=== PATIENT | female | born 1960 | race Caucasian/White ===

== ENCOUNTER 2016-06-20 16:51 | Inpatient (IN) | payer MEDICAID, OTHER ==
[~2016-06-20] VITALS: Ht 162.6 cm; Wt 64.6 kg
[2016-06-20 18:31] LABS: BASO % 0.1 % (0.0-1.0); EOS % 0.2 % (0.0-3.0); LARGE UNSTAINED CELL # 0.2 K/mm3 (0.0-0.4); LARGE UNSTAINED CELL % 0.9 % (0.0-4.0); LYMPH # 0.7 K/mm3 (1.5-4.5); LYMPH % 3.6 % (24.0-44.0); MEAN CORPUSCULAR HEMOGLOBIN 29.8 pg (27.0-33.0); MEAN CORPUSCULAR HGB CONC 33.6 g/dl (32.0-36.5); MEAN CORPUSCULAR VOLUME 88.6 fl (80.0-96.0); MONO # 0.7 K/mm3 (0.0-0.8); MONO % 3.8 % (0.0-5.0); NEUTROPHILS # 16.4 K/mm3 (1.8-7.7); NEUTROPHILS % 91.4 % (36.0-66.0); PLATELET COUNT, AUTOMATED 213 k/mm3 (150-450); RED CELL DISTRIBUTION WIDTH 12.3 % (11.5-14.5); WHITE BLOOD COUNT 17.9 K/mm3 (4.0-10.0)
[2016-06-20 18:36] LABS: BACTERIA, URINE SMALL AMOUNT; HYALINE CAST, URINE NONE SEEN /lpf (0-1); MICROSCOPIC EXAM UNSPUN; MICROSCOPIC INDICATED? MAN YES (NO); RBC, URINE 0-1 /hpf (0-3); SQUAMOUS EPITHELIAL CELL URINE SMALL AMOUNT /hpf (SMALL AMT); WBC, URINE TNTC /hpf (0-3)
[2016-06-20 18:43] LABS: ALBUMIN 3.4 GM/DL (3.2-5.2); ALBUMIN/GLOBULIN RATIO 0.76 (1.00-1.93); ALKALINE PHOSPHATASE 160 U/L (45-117); ALT/SGPT 27 U/L (12-78); ANION GAP 8 MEQ/L (8-16); AST/SGOT 14 U/L (15-37); BILIRUBIN,DIRECT 0.6 MG/DL (0.0-0.2); BILIRUBIN,TOTAL 1.2 MG/DL (0.2-1.0); BLOOD UREA NITROGEN 20 MG/DL (7-18); CALCIUM LEVEL 9.8 MG/DL (8.5-10.1); CARBON DIOXIDE LEVEL 30 MEQ/L (21-32); CHLORIDE LEVEL 102 MEQ/L (98-107); CREATININE FOR GFR 1.01 MG/DL (0.55-1.02); GLOMERULAR FILTRATION RATE > 60.0 (>51); GLUCOSE, FASTING 133 MG/DL (70-105); POTASSIUM SERUM 3.7 MEQ/L (3.5-5.1); SODIUM LEVEL 140 MEQ/L (136-145); TOTAL PROTEIN 7.9 GM/DL (6.4-8.2)
[2016-06-20] MEDS ORDERED: MORPHINE 4 MG/ML 1ML SYRINGE As Ordered ONE (19:27)
[2016-06-20] MEDS ORDERED: CIPROFLOXACIN/D5W 400 MG/200 ML BAG (J0744) As Ordered ONE (19:27)
--- NOTE | 2016-06-20 19:40 | REP ---
Clinical: Renal colic. Comparison: None. Findings: Dilated fluid-filled small bowel is appreciated to the right lower quadrant where collapsed distal/terminal ileum and colon are identified. Findings are compatible with distal small bowel obstruction possibly secondary to adhesions. Enteritis involving the distal ileum cannot be excluded. Few scattered colonic diverticula noted without acute diverticulitis. No free air. Small amount of free fluid in the pelvis is identified. Liver, spleen, pancreas, gallbladder, bilateral adrenal glands and kidneys are normal for noncontrast evaluation. No significant adenopathy. Pelvis demonstrates collapsed bladder and age-appropriate uterus/adnexa. Abdominal aorta demonstrates minimal atherosclerotic changes without aneurysm. Musculoskeletal structures demonstrate degenerative changes. Lung bases demonstrate minimal atelectasis. Impression: 1. Acute small bowel obstruction. Possible enteritis involving the distal ileum. 2. Collapsed colon with scattered diverticula and no evidence for acute diverticulitis. 3. Small amount of free fluid in the pelvis. Signed by Ata Schumacher MD 06/20/2016 07:32 P
[2016-06-20] MEDS ORDERED: ONDANSETRON 4MG/2ML VIAL (J2405) IV PRN (20:45)
[2016-06-20] MEDS ORDERED: ACETAMINOPHEN TAB 650MG DOSE (2X325MG) PO PRN (20:45)
--- NOTE | 2016-06-20 21:47 | HPE ---
DATE OF ADMISSION: 06/20/2016 PRIMARY CARE PROVIDER: None. HISTORY OF THE PRESENT ILLNESS: This patient is a 55-year-old female with no significant past medical history, presented to [facility] on 06/20/2016 for worsening abdominal pain and flank pain. The patient stated since 4 days ago, she has had intermittent abdominal pain in all the quadrants and the pain is intermittent. She does not know any significant triggers. The pain she describes as cramping-type of pain and starting this morning, the patient started having right-sided flank pain. The pain sharp, constant and colicky. The pain radiates to the abdomen. The patient also complains about nausea but no vomiting. Due to worsening of her symptoms, the patient has been having a very poor appetite, but she did have one bowel movement yesterday. The patient described the consistency and amount of the stool is very similar to what she used to have and the color of the stool is whitish-yellow. The patient has decreased urinary output. She attributed that due to poor oral intake from acute pain. She noticed her urine is darker than usual, but she denies any dysuria, frequency or urgency. ALLERGIES: No known drug allergies.. HOME MEDICATIONS: None. PAST MEDICAL HISTORY: None. PAST SURGICAL HISTORY: None. SOCIAL HISTORY: Denies smoking. Denies alcohol use. Denies any recreational drug use. REVIEW OF SYSTEMS: GENERAL: No fever, no chills. HEENT: No vision change. No auditory changes. CARDIOVASCULAR: No chest pain. No palpitations. RESPIRATORY: No shortness of breath, no cough, no sputum production. GASTROINTESTINAL: Acute abdominal pain, worsening in the past 4 days. The patient had one bowel movement yesterday. Stool is not loose and there is no visible blood. GENITOURINARY: Does complain about darker urine. No dysuria, urgency or frequency. MUSCULOSKELETAL: No muscle pain or joint pain. NEUROLOGICAL: No numbness or tingling. OBJECTIVE: VITAL SIGNS: Blood pressure is 160/82, pulse is 108, respirations 18, temperature is 98.4, pulse oximetry is 95% in room air. Body weight is 65.77 kg. Body height is 162.56 cm. GENERAL: Mild distress. Alert and oriented times three. HEENT: Normocephalic, atraumatic. Extraocular motor grossly intact. CARDIOVASCULAR: Tachycardic with a heart rate around 100-110. Positive S1, S2. RESPIRATORY: Clear to auscultation bilaterally. ABDOMEN: Soft, nontender, nondistended. Hypoactive bowel sounds. MUSCULOSKELETAL: Positive costovertebral angle tenderness at the right flank area. No lower extremity edema. No sign of cyanosis. NEUROLOGICAL: Sensation to fine touch grossly intact. Muscle strength 5/5. LABORATORY DATA: WBC is 17.9, hemoglobin is 14.9, hematocrit 44.4, platelet count is 213. Sodium is 140, potassium 3.7, chloride is 102, carbon dioxide 30, BUN 20, creatinine 1.01, GFR greater than 60, fasting glucose 133, calcium is 9.8, total bilirubin is 1.2, direct bilirubin is 0.6, AST is 14, ALT is 27, alkaline phosphatase 160, total protein is 7.9, albumin 3.4, lipase is 113. UA is cloudy, 2+ protein, positive leukocyte esterase, too many to count WBCs, small amount of bacteria. Microbiology: None. IMAGING STUDIES: CT of the abdomen and pelvis without contrast shows acute small bowel obstruction, possible enteritis involving the distal ileum. Collapsed colon with scattered diverticula and no evidence of acute diverticulitis. A small amount of air fluid in the pelvis. ASSESSMENT AND PLAN: 1. Urinary tract infection/pyelonephritis. The patient will be admitted to medical-surgical floor under inpatient status. Will obtain the urine culture. Unfortunately, one dose of ciprofloxacin was already given in the emergency room before the . Will continue with ciprofloxacin at this moment, and we will adjust antibiotics as needed. The patient will receive IV fluid running at 80 mL per hour. The patient will remain nothing by mouth (n.p.o.). 2. Imaging evidence of acute small bowel obstruction. Dr. Pagan has been consulted. The patient's presentation may be due to acute distress and infection causing ileus. Recommend medical management for now and the patient will be evaluated by the surgical team tomorrow. The patient is nothing by mouth, nasogastric (NG) tube in place. IV fluid running at 80 mL per hour. 3. Deep vein thrombosis (DVT) prophylaxis. The patient will be on heparin.
[2016-06-20] MEDS ORDERED: MORPHINE 2 MG/ML 1ML SYRINGE As Ordered ONE (22:06)
--- NOTE | 2016-06-21 00:04 | EDDOCDS ---
Physician Documentation [facility] Name: Linda Hawk Age: 55 yrs Sex: Female : 1960 Arrival Date: 06/20/2016 Time: 16:51 Bed 9 Private MD: NO PRIMARY PHYSICIAN, . Disposition: 06/20/16 20:47 Hospitalization ordered by Salvador Robledo for Inpatient Admission. Preliminary diagnosis are Other specified disorders of kidney and ureter - pyelonephritis, Ileus, unspecified. - Bed requested for M PED. - Status is Inpatient Admission. mgs - Condition is Stable. - Problem is new. - Symptoms have improved. Historical: - Allergies: no known allergies; - Home Meds: 1. none - PMHx: none; - PSHx: none; - Social history: Smoking status: Patient/guardian denies using No barriers to communication noted, The patient speaks fluent [place]. - Family history: Not pertinent. - : The pt / caregiver states he / she is not on anticoagulants. Home medication list is obtained from the patient. - Exposure Risk Screening:: None identified. [employer]: 06/20 17:09 LMP N/A - Post-menopause dls Vital Signs: 16:54 BP 174 / 107; Pulse 126; Resp 18 S; Temp 98.4(O); Pulse Ox 99% on R/A; Weight 65.77 kg gr2 / 145 lbs (R); Height 5 ft. 4 in. (162.56 cm) (R); Pain 6/10; 19:30 BP 160 / 82 (auto/); mgs 19:34 BP 160 / 82; nn1 19:34 Pain 10/10; nn1 19:40 Pulse 102 MON; Pulse Ox 95% ; mgs 20:00 Pulse 96 MON; Pulse Ox 95% ; mgs 20:30 Pulse 108 MON; Pulse Ox 95% ; mgs 22:07 BP 145 / 85; Pulse 100; Resp 16; Temp 99.5(O); Pulse Ox 96% on R/A; lr2 06/21 00:00 BP 142 / 87 RA Supine (auto/reg); Pulse 95 MON; Resp 18 S; Temp 98.8(TE); Pulse Ox 95% cln on R/A; Pain 8/10; 06/20 16:54 Body Mass Index 24.89 (65.77 kg, 162.56 cm) gr2 MDM: 02 18:13 Undress patient appropriately for examination ordered. jmk 18:13 NS 0.9% 1000 ml IV at bolus once ordered. jmk 18:14 NOTHING BY MOUTH+DIET ordered. EDMS 18:15 Basic Metabolic Profile Ordered. EDMS 18:15 CBC with Diff Ordered. EDMS 18:15 Lipase Ordered. EDMS 18:15 Liver Profile Ordered. EDMS 18:30 URINALYSIS MANUAL Ordered. EDMS 18:54 Basic Metabolic Profile Reviewed. cs11 18:54 CBC with Diff Reviewed. cs11 18:54 Liver Profile Reviewed. cs11 18:54 URINALYSIS MANUAL Reviewed. cs11 18:54 MICROSCOPIC, URINE Reviewed. cs11 18:54 Lipase Reviewed. cs11 18:55 Ciprofloxacin 400 mg IVPB at 200 mL/hr once over 60 mins ordered. cs11 19:05 morphine 4 mg IVP once ordered. cs11 19:05 Metoclopramide 10 mg IV at 40 mg/hr once over 15 mins; prn emesis ordered. cs11 19:06 CT ABD & PELVIS: No Contrast Ordered. EDMS 19:23 Financial registration complete. zo 19:38 [facility] [place] Payment Agreement was scanned into [employer] and attached to record. zo 19:49 NG/OG Tube 18Fr to L.I.S. with hourly monitoring for placement ordered. cs11 19:52 BED REQUEST+ADM ordered. EDMS 21:06 Admission / Observation Status ordered. EDMS 21:06 NPO DIET ordered. EDMS 21:08 URINE CULTURE Ordered. EDMS 21:22 BLOOD CULTURES Ordered. EDMS 21:22 BLOOD CULTURES Ordered. EDMS 22:11 morphine 2 mg IVP once ordered. mgs Administered Medications: 18:21 Drug: NS 0.9% 1000 ml Route: IV; Rate: bolus; Site: left antecubital; jmk 19:34 Drug: Ciprofloxacin 400 mg [ciprofloxacin 400 mg/200 mL in 5 % dextrose intravenous nn1 piggyback] Route: IVPB; Rate: 200 mL/hr; Infused Over: 60 mins; Site: left antecubital; 19:34 Drug: morphine 4 mg [morphine 4 mg/mL intravenous cartridge (1 mL)] Route: IVP; Site: nn1 left antecubital; 22:19 Drug: morphine 2 mg [morphine 2 mg/mL intravenous cartridge (1 mL)] Route: IVP; Site: mgs left antecubital; Signatures: Dispatcher [employer] EDMS Jass Juarez RN RN jmk Scott, Debra, RN RN dls Ct RaymundoSusieJayde, [employer] ml3 Daniel Pope Craig, DO DO cs11 Carl Egan RN RN mgs Ara Levine RN nn1 The chart was reviewed and I authenticate all verbal orders and agree with the evaluation and treatment provided.Corrections: (The following items were deleted from the chart) 18:30 18:15 URINALYSIS+LAB ordered. EDMS EDMS Attachments: 19:38 [facility] [place] Payment Agreement zo MTDD
--- NOTE | 2016-06-21 00:05 | EDDOCDS ---
Nurse's Notes [facility] Name: Linda Hawk Age: 55 yrs Sex: Female : 1960 Arrival Date: 06/20/2016 Time: 16:51 Bed 9 Private MD: NO PRIMARY PHYSICIAN, . Diagnosis: Other specified disorders of kidney and ureter-pyelonephritis;Ileus, unspecified Presentation: 06/20 17:07 Presenting complaint: Patient states: Pt presents with c/o abdominal pain x 4 days dls denies vomiting stools are soft but no diarrhea pain radiating into her back and right hip. Risk factors: the patient reports no vaginal bleeding. Adult Sepsis Screening: The patient does not have new or worsening altered mentation. Patient's respiratory rate is less than 22. Systolic blood pressure is greater than 100. Patient has a qSOFA score of 0- Negative Sepsis Screen. Suicide/Homicide risk assessment- the patient denies having any suicidal and/or homicidal ideations and does not present with any other emotional, behavioral or mental health complaints. 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 Transition of care: patient was not received from another setting of care. 17:07 Acuity: MIKIE Level 3 dls 17:07 Method Of Arrival: Walkin/Carried/Asstd dls Triage Assessment: 17:09 General: Appears slender, uncomfortable, well developed, well nourished, Behavior is dls cooperative. Pain: Pain currently is 7 out of 10 on a pain scale. HIV screening NA for this visit Offered previously. 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 none - PMHx: none; - PSHx: none; - Social history: Smoking status: Patient/guardian denies using No barriers to communication noted, The patient speaks fluent Irish. - Family history: Not pertinent. - : The pt / caregiver states he / she is not on anticoagulants. Home medication list is obtained from the patient. - Exposure Risk Screening:: None identified. Screenin:21 Screening information is obtained from the patient. Fall risk: No risks identified. jmk Assistance ADL's: requires no assistance with activities of daily living. Abuse/DV Screen: The patient / caregiver reports he/she is: not in a situation that causes fear, pain or injury. Nutritional screening: No deficits noted. Advance Directives: Currently, there is no health care proxy. There is no active DNR order. There is no living will. 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 Advance directive information has not previously been placed in an [facility] medical record. home support is adequate. Assessment: 18:21 General: Appears in no apparent distress, skin warm and dry color satisfactory. Moist jmk pink oral mucosa. indicates diffuse abd discomfort. bowel sounds present x 4. + left flank pain of which she states lessens with ambulation. Cardiovascular: No deficits noted. Capillary refill < 3 seconds Clubbing of nail beds is absent Heart tones S1 S2 present. Respiratory: Airway is patent Respiratory effort is even, unlabored, Respiratory pattern is regular, Breath sounds are clear bilaterally. GI: Abdomen is flat, non- distended Bowel sounds present X 4 quads. Abd is soft X 4 quads Abd is tender to palpation X 4 quads. 19:35 General: Patient medicated for pain per orders, fluids and antibiotics infusing. . nn1 Pain: Location: epigastric area, left hip and right hip Pain currently is 10 out of 10 on a pain scale. 19:42 General: Appears in no apparent distress. General: Behavior is cooperative. Pain: mgs Location: right hip, right flank Pain currently is 10 out of 10 on a pain scale. Neurological: Level of Consciousness is awake, alert, Oriented to person, place, time. Cardiovascular: Capillary refill < 3 seconds Heart tones S1 S2 present. Respiratory: Airway is patent Respiratory effort is even, unlabored, Respiratory pattern is regular, symmetrical. Derm: Skin is pink, warm & dry. 20:38 General: Appears in no apparent distress, Behavior is cooperative. Pain: Location: mgs right flank Pain currently is 8 out of 10 on a pain scale. Neurological: Level of Consciousness is awake, alert, Oriented to person, place, time. Cardiovascular: Capillary refill < 3 seconds. Respiratory: Airway is patent Respiratory effort is even, unlabored, Respiratory pattern is regular, symmetrical. Derm: Skin is pink, warm & dry. 21:30 General: Appears in no apparent distress, Behavior is cooperative. Pain: Location: mgs right flank Pain currently is 9 out of 10 on a pain scale. Neurological: Level of Consciousness is awake, alert, Oriented to person, place, time. Cardiovascular: Capillary refill < 3 seconds. Respiratory: Airway is patent Respiratory effort is even, unlabored. Derm: Skin is pink, warm & dry. 22:25 General: Appears in no apparent distress, Behavior is cooperative. Pain: Location: mgs right flank Pain currently is 8 out of 10 on a pain scale. Neurological: Level of Consciousness is awake, alert, Oriented to person, place, time. Cardiovascular: Capillary refill < 3 seconds. Respiratory: Airway is patent Respiratory effort is even, unlabored, Respiratory pattern is regular, symmetrical. Derm: Skin is pink, warm & dry. 22:51 General: Appears in no apparent distress, Behavior is cooperative. Pain: Location: mgs right flank Pain currently is 6 out of 10 on a pain scale. Neurological: Level of Consciousness is awake, alert, Oriented to person, place, time. Cardiovascular: Capillary refill < 3 seconds. Respiratory: Airway is patent Respiratory effort is even, unlabored, Respiratory pattern is regular, symmetrical. Derm: Skin is pink, warm & dry. 22:52 General: Patients 15 year old daughter left with family friend Ni Lyles, patient mgs was ok with this. 23:38 General: Appears in no apparent distress, Behavior is cooperative. Neurological: Level mgs of Consciousness is awake, alert, Oriented to person, place, time. Cardiovascular: Capillary refill < 3 seconds. Respiratory: Airway is patent Respiratory effort is even, unlabored, Respiratory pattern is regular, symmetrical. Derm: Skin is pink, warm & dry. 23:59 General: Appears in no apparent distress, Behavior is cooperative. Neurological: Level mgs of Consciousness is awake, alert, Oriented to person, place, time. Cardiovascular: Capillary refill < 3 seconds. Respiratory: Airway is patent Respiratory effort is even, unlabored, Respiratory pattern is regular, symmetrical. GI: NGT in place, to suction. Derm: Skin is pink, warm & dry. Vital Signs: 16:54 BP 174 / 107; Pulse 126; Resp 18 S; Temp 98.4(O); Pulse Ox 99% on R/A; Weight 65.77 kg gr2 (R); Height 5 ft. 4 in. (162.56 cm) (R); Pain 6/10; 19:30 BP 160 / 82 (auto/); mgs 19:34 BP 160 / 82; nn1 19:34 Pain 10/10; nn1 19:40 Pulse 102 MON; Pulse Ox 95% ; mgs 20:00 Pulse 96 MON; Pulse Ox 95% ; mgs 20:30 Pulse 108 MON; Pulse Ox 95% ; mgs 22:07 BP 145 / 85; Pulse 100; Resp 16; Temp 99.5(O); Pulse Ox 96% on R/A; lr2 06/21 00:00 BP 142 / 87 RA Supine (auto/reg); Pulse 95 MON; Resp 18 S; Temp 98.8(TE); Pulse Ox 95% cln on R/A; Pain 8/10; 06/20 16:54 Body Mass Index 24.89 (65.77 kg, 162.56 cm) gr2 Vitals: 06/20 16:54 Log In Time: June 20, 2016 at 16:54. gr2 ED Course: 16:53 Patient visited by Mario Horowitz. gr2 16:53 Patient moved to Waiting gr2 16:54 NO PRIMARY PHYSICIAN, . is Private Physician. gr2 16:56 Patient visited by Mario Horowitz. gr2 16:56 Patient moved to Pre RCE gr2 17:09 Triage Initiated dls 17:20 Breana Cho,RN is Primary Nurse. kcs 17:20 Patient moved to 9 kcs 18:15 Basic Metabolic Profile Sent. jmk 18:15 CBC with Diff Sent. jmk 18:15 Lipase Sent. jmk 18:15 Liver Profile Sent. jmk 18:21 The patient / caregiver is instructed regarding the plan of care and ED course. jmk 18:21 Inserted saline lock: 20 gauge in left antecubital area. jmk 18:52 Dave Avitia DO is Attending Physician. cs11 18:52 Patient visited by Dave Avitia DO. cs11 19:01 Primary Nurse role handed off by Breana Cho,VERONICA mv5 19:25 Carl Egan,VERONICA is Primary Nurse. mgs 19:38 [facility] Payment Agreement was scanned into [place] and attached to record. zo 19:49 Patient visited by Carl Egan,VERONICA. mgs 20:05 CT ABD & PELVIS: No Contrast Returned. EDMS 20:38 NGT inserted 18 Fr. via right nare. Placement verified. Returned gastric contents. to mgs intermittent suction. Patient tolerated well. 20:39 Patient visited by Carl Egan RN. mgs 20:44 Richa Flores nutrient management specialist. ys2 20:45 Salvador Robledo is Hospitalizing Provider. cs11 22:53 Patient visited by Carl Egan RN. mgs 23:38 Patient visited by Carl Egan RN. mgs 06/21 00:01 Patient visited by Rupinder Hernandez PCA. cln 00:02 No procedures done that require assistance. mgs Administered Medications: 06/20 18:21 Drug: NS 0.9% 1000 ml Route: IV; Rate: bolus; Site: left antecubital; [facility] 19:34 Drug: Ciprofloxacin 400 mg [ciprofloxacin 400 mg/200 mL in 5 % dextrose intravenous nn1 piggyback] Route: IVPB; Rate: 200 mL/hr; Infused Over: 60 mins; Site: left antecubital; 19:34 Drug: morphine 4 mg [morphine 4 mg/mL intravenous cartridge (1 mL)] Route: IVP; Site: nn1 left antecubital; 22:19 Drug: morphine 2 mg [morphine 2 mg/mL intravenous cartridge (1 mL)] Route: IVP; Site: mgs left antecubital; Order Results: Lab Order: Basic Metabolic Profile; SPEC'M 06/20/16 17:37 Test: GLUCOSE, FASTING; Value: 133; Range: 70-105; Abnormal: Above high normal; Units: MG/DL; Status: F Test: BLOOD UREA NITROGEN; Value: 20; Range: 7-18; Abnormal: Above high normal; Units: MG/DL; Status: F Test: CREATININE FOR GFR; Value: 1.01; Range: 0.55-1.02; Units: MG/DL; Status: F Test: GLOMERULAR FILTRATION RATE; Value: > 60.0; Range: >51; Status: F Test: SODIUM LEVEL; Value: 140; Range: 136-145; Units: MEQ/L; Status: F Test: POTASSIUM SERUM; Value: 3.7; Range: 3.5-5.1; Units: MEQ/L; Status: F Test: CHLORIDE LEVEL; Value: 102; Range: 98-107; Units: MEQ/L; Status: F Test: CARBON DIOXIDE LEVEL; Value: 30; Range: 21-32; Units: MEQ/L; Status: F Test: ANION GAP; Value: 8; Range: 8-16; Units: MEQ/L; Status: F Test: CALCIUM LEVEL; Value: 9.8; Range: 8.5-10.1; Units: MG/DL; Status: F Test Note: ; Units are mL/min/1.73 m2 Chronic Kidney Disease Staging per NKF: Stage I & II GFR >=60 Normal to Mildly Decreased Stage III GFR 30-59 Moderately Decreased Stage IV GFR 15-29 Severely Decreased Stage V GFR <15 Very Little GFR Left ESRD GFR <15 on [employer] 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 [employer]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 Lab Order: CBC with Diff; SPEC'M 06/20/16 17:37 Test: WHITE BLOOD COUNT; Value: 17.9; Range: 4.0-10.0; Abnormal: Above high normal; Units: K/mm3; Status: F Test: RED BLOOD COUNT; Value: 5.01; Range: 4.00-5.40; Units: M/mm3; Status: F Test: HEMOGLOBIN; Value: 14.9; Range: 12.0-16.0; Units: g/dl; Status: F Test: HEMATOCRIT; Value: 44.4; Range: 36.0-47.0; Units: %; Status: F Test: MEAN CORPUSCULAR VOLUME; Value: 88.6; Range: 80.0-96.0; Units: fl; Status: F Test: MEAN CORPUSCULAR HEMOGLOBIN; Value: 29.8; Range: 27.0-33.0; Units: pg; Status: F Test: MEAN CORPUSCULAR HGB CONC; Value: 33.6; Range: 32.0-36.5; Units: g/dl; Status: F Test: RED CELL DISTRIBUTION WIDTH; Value: 12.3; Range: 11.5-14.5; Units: %; Status: F Test: PLATELET COUNT, AUTOMATED; Value: 213; Range: 150-450; Units: k/mm3; Status: F Test: NEUTROPHILS %; Value: 91.4; Range: 36.0-66.0; Abnormal: Above high normal; Units: %; Status: F Test: LYMPH %; Value: 3.6; Range: 24.0-44.0; Abnormal: Below low normal; Units: %; Status: F Test: MONO %; Value: 3.8; Range: 0.0-5.0; Units: %; Status: F Test: EOS %; Value: 0.2; Range: 0.0-3.0; Units: %; Status: F Test: BASO %; Value: 0.1; Range: 0.0-1.0; Units: %; Status: F Test: LARGE UNSTAINED CELL %; Value: 0.9; Range: 0.0-4.0; Units: %; Status: F Test: NEUTROPHILS #; Value: 16.4; Range: 1.8-7.7; Abnormal: Above high normal; Units: K/mm3; Status: F Test: LYMPH #; Value: 0.7; Range: 1.5-4.5; Abnormal: Below low normal; Units: K/mm3; Status: F Test: MONO #; Value: 0.7; Range: 0.0-0.8; Units: K/mm3; Status: F Test: EOS #; Value: 0.0; Range: 0.0-0.50; Units: K/mm3; Status: F Test: BASO #; Value: 0.0; Range: 0.0-0.2; Units: K/mm3; Status: F Test: LARGE UNSTAINED CELL #; Value: 0.2; Range: 0.0-0.4; Units: K/mm3; Status: F Lab Order: Lipase; [facility]' 06/20/16 17:37 Test: LIPASE; Value: 113; Range: 73-393; Units: U/L; Status: F Lab Order: Liver Profile; SPEC' 06/20/16 17:37 Test: AST/SGOT; Value: 14; Range: 15-37; Abnormal: Below low normal; Units: U/L; Status: F Test: ALT/SGPT; Value: 27; Range: 12-78; Units: U/L; Status: F Test: ALKALINE PHOSPHATASE; Value: 160; Range: 45-117; Abnormal: Above high normal; Units: U/L; Status: F Test: BILIRUBIN,TOTAL; Value: 1.2; Range: 0.2-1.0; Abnormal: Above high normal; Units: MG/DL; Status: F Test: BILIRUBIN,DIRECT; Value: 0.6; Range: 0.0-0.2; Abnormal: Above high normal; Units: MG/DL; Status: F Test: TOTAL PROTEIN; Value: 7.9; Range: 6.4-8.2; Units: GM/DL; Status: F Test: ALBUMIN; Value: 3.4; Range: 3.2-5.2; Units: GM/DL; Status: F Test: ALBUMIN/GLOBULIN RATIO; Value: 0.76; Range: 1.00-1.93; Abnormal: Below low normal; Status: F Lab Order: URINALYSIS MANUAL; SPEC'M 06/20/16 18:19 Test: APPEARANCE, URINE MANUAL; Value: CLOUDY; Range: CLEAR; Abnormal: Above high normal; Status: F Test: COLOR, URINE MANUAL; Value: YELLOW; Range: YELLOW; Status: F Test: PH,URINE MAN; Value: 5.0; Range: 5.0 - 9.0; Units: UNITS; Status: F Test: SPECIFIC GRAVITY,URINE MANUAL; Value: 1.025; Range: 1.002-1.035; Status: F Test: PROTEIN, URINE MANUAL; Value: 2+; Range: NEGATIVE; Abnormal: Above high normal; Units: mg/dL; Status: F Test: GLUCOSE, URINE (UA) MANUAL; Value: NEGATIVE; Range: NEGATIVE; Units: mg/dL; Status: F Test: KETONE, URINE MANUAL; Value: 1+; Range: NEGATIVE; Abnormal: Above high normal; Units: mg/dL; Status: F Test: UROBILINOGEN, URINE MANUAL; Value: 1 MG; Range: NORMAL; Abnormal: Above high normal; Units: mg/dl; Status: F Test: BILIRUBIN, URINE MANUAL; Value: NEGATIVE; Range: NEGATIVE; Status: F Test: NITRITE, URINE MANUAL; Value: NEGATIVE; Range: NEGATIVE; Status: F Test: LEUKOCYTE ESTERASE, URINE MAN; Value: POSITIVE; Range: NEGATIVE; Abnormal: Above high normal; Status: F Test: BLOOD URINE MANUAL; Value: POSITIVE; Range: NEGATIVE; Abnormal: Above high normal; Status: F Lab Order: MICROSCOPIC, URINE; SPEC'M 06/20/16 18:19 Test: WBC, URINE; Value: TNTC; Range: 0-3; Abnormal: Above high normal; Units: /hpf; Status: F Test: RBC, URINE; Value: 0-1; Range: 0-3; Units: /hpf; Status: F Test: SQUAMOUS EPITHELIAL CELL URINE; Value: SMALL AMOUNT; Range: SMALL AMT; Units: /hpf; Status: F Test: BACTERIA, URINE; Value: SMALL AMOUNT; Range: NONE; Abnormal: Above high normal; Status: F Test: HYALINE CAST, URINE; Value: NONE SEEN; Range: 0-1; Units: /lpf; Status: F Test: MICROSCOPIC EXAM; Value: UNSPUN; Status: F Radiology Order: CT ABD & PELVIS: No Contrast Test: CT ABD & PELVIS: No Contrast REASON FOR EXAMINATION: Renal colic; Clinical: Renal colic.; ; Comparison: None.; ; Findings:; Dilated fluid-filled small bowel is appreciated to the right lower quadrant where; collapsed distal/terminal ileum and colon are identified. Findings are; compatible with distal small bowel obstruction possibly secondary to adhesions.; Enteritis involving the distal ileum cannot be excluded. Few scattered colonic; diverticula noted without acute diverticulitis. No free air. Small amount of; free fluid in the pelvis is identified.; ; Liver, spleen, pancreas, gallbladder, bilateral adrenal glands and kidneys are; normal for noncontrast evaluation. No significant adenopathy. Pelvis; demonstrates collapsed bladder and age-appropriate uterus/adnexa. Abdominal; aorta demonstrates minimal atherosclerotic changes without aneurysm.; Musculoskeletal structures demonstrate degenerative changes. Lung bases; demonstrate minimal atelectasis.; ; Impression:; 1. Acute small bowel obstruction. Possible enteritis involving the distal; ileum.; 2. Collapsed colon with scattered diverticula and no evidence for acute; diverticulitis.; 3. Small amount of free fluid in the pelvis.; ; ; Signed by; Ata Schumacher MD 06/20/2016 07:32 P; Outcome: 20:47 Decision to Hospitalize by Provider. cs11 06/21 00:02 Discharge Assessment: Patient awake, alert and oriented x 3. No cognitive and/or mgs functional deficits noted. Patient verbalized understanding of disposition instructions. patient administered narcotics - yes. Patient was admitted to the hospital or transferred to another facility. The following High Risk Discharge criteria are identified: None. Admitted to Pediatrics accompanied by tech, via stretcher, with chart. Condition: stable. CT Study completed. Property :Personal belongings accompany Pt. 00:04 Patient left the ED. mgs Signatures: Dispatcher [employer] EDMS Farzana Schroeder RN RN Jass Denise RN RN Lucina Rosario RN RN dls Olin, Zoeann zo Schiff, Craig, DO DO cs11 Mario Horowitz gr2 Carl Egan,VERONICA RN mgs Ara Levine RN RN nn1 Sung, Chaudhry ys2 David, Crystal, POULTRY SLAUGHTERER POULTRY SLAUGHTERER cln Harmony Valenzuela lr2 Breana Cho RN RN mv5 Corrections: (The following items were deleted from the chart) 06/20 18:30 18:20 URINALYSIS+LAB sent. charly STRATTON MTDD
[2016-06-21 00:15] VITALS: BP 141/88
[2016-06-21] MEDS: NS 1,000 ML IV SCH ×2 (00:56→13:11)
[2016-06-21] MEDS: MORPHINE 2 MG/ML 1ML SYRINGE IV PRN ×5 (03:27→19:48)
[2016-06-21] MEDS: HEPARIN SOD (PORCINE) 5000 UNITS/ML VIAL SC SCH ×3 (06:15→21:12)
[2016-06-21 08:00] VITALS: BP 142/90
[2016-06-21] MEDS: PANTOPRAZOLE 40MG INJ (PROTONIX) (C9113) IV SCH (08:42)
[2016-06-21] MEDS: CIPROFLOXACIN 400 MG in APPROPRIATE DILUENT 1 EA IV SCH ×2 (08:42→19:47)
[2016-06-21 09:16] LABS: BASO % 0.1 % (0.0-1.0); EOS # 0.1 K/mm3 (0.0-0.50); EOS % 0.7 % (0.0-3.0); LARGE UNSTAINED CELL # 0.3 K/mm3 (0.0-0.4); LARGE UNSTAINED CELL % 2.1 % (0.0-4.0); LYMPH # 1.1 K/mm3 (1.5-4.5); LYMPH % 8.6 % (24.0-44.0); MEAN CORPUSCULAR HEMOGLOBIN 29.2 pg (27.0-33.0); MEAN CORPUSCULAR HGB CONC 33.1 g/dl (32.0-36.5); MEAN CORPUSCULAR VOLUME 88.2 fl (80.0-96.0); MONO # 0.7 K/mm3 (0.0-0.8); NEUTROPHILS # 10.8 K/mm3 (1.8-7.7); NEUTROPHILS % 83.5 % (36.0-66.0); PLATELET COUNT, AUTOMATED 202 k/mm3 (150-450); RED CELL DISTRIBUTION WIDTH 12.6 % (11.5-14.5)
[2016-06-21 09:39] LABS: ALBUMIN 2.7 GM/DL (3.2-5.2); ALBUMIN/GLOBULIN RATIO 0.82 (1.00-1.93); ALKALINE PHOSPHATASE 123 U/L (45-117); ALT/SGPT 19 U/L (12-78); ANION GAP 10 MEQ/L (8-16); AST/SGOT 12 U/L (15-37); BLOOD UREA NITROGEN 17 MG/DL (7-18); CALCIUM LEVEL 8.3 MG/DL (8.5-10.1); CARBON DIOXIDE LEVEL 26 MEQ/L (21-32); CHLORIDE LEVEL 109 MEQ/L (98-107); CREATININE FOR GFR 0.78 MG/DL (0.55-1.02); GLOMERULAR FILTRATION RATE > 60.0 (>51); GLUCOSE, FASTING 97 MG/DL (70-105); POTASSIUM SERUM 3.7 MEQ/L (3.5-5.1); SODIUM LEVEL 145 MEQ/L (136-145)
[2016-06-21] MEDS: PERCOCET 5MG/325MG TAB PO PRN ×2 (10:12→20:16)
[2016-06-21] MEDS ORDERED: CYCLOBENZAPRINE 5MG TABLET PO PRN (15:00)
[2016-06-21 16:00] VITALS: BP 177/98
--- NOTE | 2016-06-21 16:47 | IPN ---
DATE: 06/21/2016 Ms. Hawk is feeling somewhat better today. She still has right-sided flank pain. Not particularly nauseous. No chest pain. No shortness of breath. Is concerned that her daughter did not get to school today. Temperature is 96.9, pulse 90, respirations 18, blood pressure 142/90, 94% on room air. Intake and output notable for a positive fluid balance of 1015. Weight 66.1 kg. She is awake, appropriately interactive. Pleasantly conversant. She has a nasogastric (NG) tube in place. Mucous membranes moist. Neck supple. Breathing is symmetric, rested. Inspiratory to expiratory (I-to-E) ratio is 1:3. Heart is in a regular rate and rhythm. Abdomen soft with bowel sounds. Nontender. White cell count is 13, hemoglobin is 12.5, platelets are 202. BUN 17, creatinine 0.78. Bilirubin has normalized to 1. Alkaline phosphatase is trending downward to 123. Blood cultures are pending. ASSESSMENT: This is a 55-year-old with urinary tract infection, suspected pyelonephritis, and resulting ileus. PLAN: 1. Urinary tract infection/pyelonephritis. Patient continued on ciprofloxacin. There are no urine cultures to guide her therapy, but she appears to be improving. White cell count is improved. She still has flank pain with no evidence of obstruction on CT. Continuing on intravenous (IV) fluid. 2. Patient has ileus. I have discussed this case with Ej in person. He has suggested removing the NG tube and advancing to a liquid diet, which has been ordered. 3. Patient has appropriate deep vein thrombosis (DVT) prophylaxis.
[2016-06-21 18:17] VITALS: BP 184/103
[2016-06-21 20:00] VITALS: BP 179/102
[2016-06-21] MEDS ORDERED: CYCLOBENZAPRINE 5MG TABLET PO ONE (20:45)
[2016-06-21] MEDS ORDERED: CYCLOBENZAPRINE 10 MG TAB PO PRN (20:45)
--- NOTE | 2016-06-21 22:20 | IPNPDOC ---
Text Note Date of Service The patient was seen on 06/21/16. NOTE Subjective: I was called to the unit to evaluate the patient due to pain. Patient was earlier having bilateral hip pain but now is complaining of pain in her right side and up her right back. She currently denies having any pelvic pain. She is having some difficulty breathing due to pain in her right ribs. She denies having any cough, recent trauma to her ribs, dysuria or hematuria. Objective: Vitals: Temperature 99.4, pulse 101, respiratory rate 20, blood pressure 179/102 Gen.: Patient seated in bed, alert and oriented, verbal and able to answer questions appropriately. She does not appear to be in any acute distress Heart: Regular rate and rhythm, normal S1-S2. No murmurs, rubs, clicks or gallops Lungs: Clear to auscultation bilaterally. No wheezes, rales or rhonchi Abdomen: Active bowel sounds, soft, nontender, no masses to palpation Musculoskeletal: Minimal tenderness over right thoracic posterior ribs. Lower ribs nontender to palpation Assessment / Plan: Patient is a 55-year-old female with rib pain. Patient has been getting 5 mg of cyclobenzaprine which she does have some improvement to her pain when she is taking medication. She will be given a extra one-time dose of 5 mg of cyclobenzaprine and her standing order will be changed from 5 mg to 5-10 mg every 6 hours when necessary. My preceptor for this patient encounter was physically present in the building during the encounter and was fully available. As needed, all aspects of the patient interview, examination, medical decision making process, and medical care plan development were reviewed and approved by the preceptor. Preceptor is aware and concurs with the plan as stated in the body of this note and will attest to such by his/her cosignature. Attending Note: I have independently examined this patient and all aspects of the exam and treatment decisions have been discussed with the resident. A member of the hospitalist staff will continue to follow this patient through discharge. VS,Fishbone, I+O VS, Fishbone, I+O Laboratory Tests 06/21/16 08:53 Calcium Level 8.3 #L, Aspartate Amino Transf (AST/SGOT) 12 L, Alanine Aminotransferase (ALT/SGPT) 19, Alkaline Phosphatase 123 H, Total Bilirubin 1.0 , Total Protein 6.0 #L, Albumin 2.7 #L, Red Blood Count 4.28, Mean Corpuscular Volume 88.2, Mean Corpuscular Hemoglobin 29.2, Mean Corpuscular Hemoglobin Concent 33.1, Red Cell Distribution Width 12.6, Neutrophils (%) (Auto) 83.5 H, Lymphocytes (%) (Auto) 8.6 L, Monocytes (%) (Auto) 5.0, Eosinophils (%) (Auto) 0.7, Basophils (%) (Auto) 0.1, Neutrophils # (Auto) 10.8 H, Lymphocytes # (Auto ) 1.1 L, Monocytes # (Auto) 0.7, Eosinophils # (Auto) 0.1, Basophils # (Auto) 0.0 Vital Signs Date Time Temp Pulse Resp B/P Pulse Ox O2 Delivery O2 Flow Rate FiO2 06/21/16 20:46 18 06/21/16 20:00 99.4 101 179/102 93 Room Air I&O- Last 24 Hours up to 6 AM 06/21/16 06:00 Intake Total 685 ml Output Total 150 ml Balance 535 ml MELISSA ÁLVAREZ DO Jun 21, 2016 22:20 MARAL SUTTON DO Jun 22, 2016 19:16
[2016-06-21 22:30] VITALS: BP 171/93
[2016-06-22] VITALS (7 sets, daily range): BP systolic 133–220; BP diastolic 78–130
[2016-06-22] MEDS: NS 1,000 ML IV SCH ×2 (00:51→08:56)
[2016-06-22] MEDS: PERCOCET 5MG/325MG TAB PO PRN ×2 (00:52→21:10)
[2016-06-22] MEDS ORDERED: MORPHINE 4 MG/ML 1ML SYRINGE IV STA (05:46)
[2016-06-22] MEDS: HEPARIN SOD (PORCINE) 5000 UNITS/ML VIAL SC SCH ×3 (05:54→21:07)
--- NOTE | 2016-06-22 06:42 | IPNPDOC ---
Text Note Date of Service The patient was seen on 06/22/16. NOTE Subjective: I was called to the unit to evaluate the patient us morning due to elevated blood pressure, tachycardia and pain. Nurse called reporting a blood pressure of 230/130, heart rate 117-120 and initial oxygen staurations in the 70s while on room air. Patient was immediately placed by nursing on 4 L nasal cannula of oxygen. When I got to the unit patient was walking into the bathroom with out oxygen and did not have any dizziness or lightheadedness at that time. When I evaluated the patient and she said that she woke up and was initially having pain in her right breast and is now having right-sided rib pain. She was having difficulty breathing due to rib pain. She denies any fevers, chills, sweats, chest pain/pressure, headaches, dizziness or lightheadedness. Objective: Vitals on presentation heart rate 110, blood pressure 124/123, pulse ox 96% on 3 L nasal cannula Gen.: Patient awake, alert and oriented, verbal and able to answer questions appropriately. She does not appear to be in any acute distress Heart: Tachycardic, regular rhythm. No murmurs, rubs, clicks or gallops Lungs: Clear to auscultation bilaterally. No wheezes, rales or rhonchi Musculoskeletal: Palpation over right sided posterior ribs elicits/reproduces pain. Assessment / Plan: Right sided rib pain: Patient given 4 mg of IV morphine. Patient's vitals were reassessed after 15 minutes. Vitals had improved to a heart rate of 90, blood pressure of 190/94, pulse ox of 97% on 3 L. My preceptor for this patient encounter was physically present in the building during the encounter and was fully available. As needed, all aspects of the patient interview, examination, medical decision making process, and medical care plan development were reviewed and approved by the preceptor. Preceptor is aware and concurs with the plan as stated in the body of this note and will attest to such by his/her cosignature. Attending Note: I have independently examined this patient and all aspects of the exam and treatment decisions have been discussed with the resident. A member of the hospitalist staff will continue to follow this patient through discharge. Will continue to monitor patient's blood pressure. Likely related to pain from underlying pyelonephritis. DODIE,Momo Mayer+O VS, Fishbone, I+O Laboratory Tests 06/21/16 08:53 Calcium Level 8.3 #L, Aspartate Amino Transf (AST/SGOT) 12 L, Alanine Aminotransferase (ALT/SGPT) 19, Alkaline Phosphatase 123 H, Total Bilirubin 1.0 , Total Protein 6.0 #L, Albumin 2.7 #L, Red Blood Count 4.28, Mean Corpuscular Volume 88.2, Mean Corpuscular Hemoglobin 29.2, Mean Corpuscular Hemoglobin Concent 33.1, Red Cell Distribution Width 12.6, Neutrophils (%) (Auto) 83.5 H, Lymphocytes (%) (Auto) 8.6 L, Monocytes (%) (Auto) 5.0, Eosinophils (%) (Auto) 0.7, Basophils (%) (Auto) 0.1, Neutrophils # (Auto) 10.8 H, Lymphocytes # (Auto ) 1.1 L, Monocytes # (Auto) 0.7, Eosinophils # (Auto) 0.1, Basophils # (Auto) 0.0 Vital Signs Date Time Temp Pulse Resp B/P Pulse Ox O2 Delivery O2 Flow Rate FiO2 06/22/16 06:15 90 190/94 97 Nasal Cannula 3.0 06/22/16 05:54 20 06/22/16 05:20 98.2 I&O- Last 24 Hours up to 6 AM 06/22/16 06:00 Intake Total 2040 ml Output Total 750 ml Balance 1290 ml MELISSA ÁLVAREZ DO Jun 22, 2016 06:42 MARAL SUTTON DO Jun 22, 2016 19:21
[2016-06-22 07:18] LABS: BASO % 0.2 % (0.0-1.0); EOS # 0.2 K/mm3 (0.0-0.50); LARGE UNSTAINED CELL # 0.1 K/mm3 (0.0-0.4); LARGE UNSTAINED CELL % 1.5 % (0.0-4.0); LYMPH % 11.9 % (24.0-44.0); MEAN CORPUSCULAR VOLUME 90.7 fl (80.0-96.0); MONO # 0.6 K/mm3 (0.0-0.8); MONO % 8.2 % (0.0-5.0); NEUTROPHILS # 5.6 K/mm3 (1.8-7.7); NEUTROPHILS % 76.3 % (36.0-66.0); PLATELET COUNT, AUTOMATED 194 k/mm3 (150-450); RED CELL DISTRIBUTION WIDTH 12.8 % (11.5-14.5); WHITE BLOOD COUNT 7.4 K/mm3 (4.0-10.0)
[2016-06-22 07:32] LABS: ALBUMIN 2.4 GM/DL (3.2-5.2); ALBUMIN/GLOBULIN RATIO 0.83 (1.00-1.93); ALKALINE PHOSPHATASE 148 U/L (45-117); ALT/SGPT 23 U/L (12-78); ANION GAP 9 MEQ/L (8-16); AST/SGOT 15 U/L (15-37); BILIRUBIN,DIRECT 0.5 MG/DL (0.0-0.2); BILIRUBIN,TOTAL 0.8 MG/DL (0.2-1.0); BLOOD UREA NITROGEN 12 MG/DL (7-18); CALCIUM LEVEL 8.4 MG/DL (8.5-10.1); CARBON DIOXIDE LEVEL 26 MEQ/L (21-32); CHLORIDE LEVEL 110 MEQ/L (98-107); CREATININE FOR GFR 0.71 MG/DL (0.55-1.02); GLOMERULAR FILTRATION RATE > 60.0 (>51); GLUCOSE, FASTING 94 MG/DL (70-105); POTASSIUM SERUM 3.7 MEQ/L (3.5-5.1); SODIUM LEVEL 145 MEQ/L (136-145); TOTAL PROTEIN 5.3 GM/DL (6.4-8.2)
[2016-06-22] MEDS ORDERED: BISACODYL 10 MG SUPP PR PRN (08:45)
[2016-06-22] MEDS: PANTOPRAZOLE 40MG INJ (PROTONIX) (C9113) IV SCH (08:55)
[2016-06-22] MEDS: CIPROFLOXACIN 400 MG in APPROPRIATE DILUENT 1 EA IV SCH ×2 (08:56→21:07)
--- NOTE | 2016-06-22 10:08 | REP ---
Clinical: abdominal pain. Technique: Landaverde scale ultrasound using curved array transducer. Findings: The liver and pancreas are normal in contour, size, and echogenicity without focal hepatic or pancreatic lesions identified. The gallbladder is normal without gallstones, wall thickening or pericholecystic fluid. No biliary ductal dilatation is appreciated, and the common bile duct measures 3.9 mm diameter. The right kidney is normal in reniform shape without hydronephrosis and measures 10.7 x 5.1 x 4.4 cm. No ascites. Visualized portions of the abdominal aorta normal. Impression: Normal right upper quadrant and gallbladder abdominal ultrasound. Signed by Ata Schumacher MD 06/22/2016 09:59 A
[2016-06-22] MEDS: amLODIPine 10 MG TAB PO SCH (12:27)
--- NOTE | 2016-06-22 16:12 | IPN ---
DATE: 06/22/2016 Ms. Hawk was complaining of right upper quadrant pain as well as flank pain over the course of the evening. She did receive a dose of morphine which has resolved that pain. She was noted to have an elevated blood pressure. Temperature 98.9, pulse 95, respiratory rate 20, blood pressure 181/102, 96% on three liters. Intake and output notable for a positive fluid balance of 2125. No bowel movements thus far recorded. She is awake and appropriately interactive. . Mucous membranes are moist. Neck is supple. Breathing is symmetric and rested. Heart is in a regular rate and rhythm. There is no abdominal tenderness, specifically no right upper quadrant abdominal tenderness. Hypoactive bowel sounds. No flank tenderness. No costovertebral angle (CVA) tenderness. LABORATORY DATA: White cell count 7.4, hemoglobin 10.9, and platelets of 194. BUN 12, creatinine 0.7. Blood cultures are negative at 24 hours. Gallbladder ultrasound done today shows no pathological findings. ASSESSMENT: This is a 55-year-old with a urinary tract infection, suspected pyelonephritis, and resolving ileus. PLAN: 1. For urinary tract infection/pyelonephritis, the patient is continued on ciprofloxacin with improvement in her white cell count. She is having abdominal pain. Ultrasound of the right upper quadrant shows no acute findings. 2. The patient has resolving ileus and has been tolerating an advanced diet. She was temporarily nothing by mouth this morning and again has been advanced after receiving a right upper quadrant ultrasound. 3. The patient has appropriate deep vein thrombosis (DVT) prophylaxis. 4. The patient's blood pressure is elevated. I have elected to start the patient on Norvasc. It could be that she has untreated hypertension as an outpatient.
[2016-06-22] MEDS ORDERED: cloNIDine 0.1 MG TAB PO ONE (17:15)
[2016-06-23] VITALS: BP 146/86
[2016-06-23] MEDS: MORPHINE 2 MG/ML 1ML SYRINGE IV PRN ×4 (00:33→16:38)
--- NOTE | 2016-06-23 01:05 | EDDOCDS ---
Physician Documentation [facility] Name: Linda Hawk Age: 55 yrs Sex: Female : 1960 Arrival Date: 06/20/2016 Time: 16:51 Bed 9 Private MD: NO PRIMARY PHYSICIAN, . Disposition: 06/20/16 20:47 Hospitalization ordered by Salvador Robledo for Inpatient Admission. Preliminary diagnosis are Other specified disorders of kidney and ureter - pyelonephritis, Ileus, unspecified. - Bed requested for M PED. - Status is Inpatient Admission. mgs - Condition is Stable. - Problem is new. - Symptoms have improved. Historical: - Allergies: no known allergies; - Home Meds: 1. none - PMHx: none; - PSHx: none; - Social history: Smoking status: Patient/guardian denies using No barriers to communication noted, The patient speaks fluent Swedish. - Family history: Not pertinent. - : The pt / caregiver states he / she is not on anticoagulants. Home medication list is obtained from the patient. - Exposure Risk Screening:: None identified. 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 4 in. (162.56 cm) (R); Pain 6/10; 19:30 BP 160 / 82 (auto/); mgs 19:34 BP 160 / 82; nn1 19:34 Pain 10/10; nn1 19:40 Pulse 102 MON; Pulse Ox 95% ; mgs 20:00 Pulse 96 MON; Pulse Ox 95% ; mgs 20:30 Pulse 108 MON; Pulse Ox 95% ; mgs 22:07 BP 145 / 85; Pulse 100; Resp 16; Temp 99.5(O); Pulse Ox 96% on R/A; lr2 06/21 00:00 BP 142 / 87 RA Supine (auto/reg); Pulse 95 MON; Resp 18 S; Temp 98.8(TE); Pulse Ox 95% cln on R/A; Pain 8/10; 06/20 16:54 Body Mass Index 24.89 (65.77 kg, 162.56 cm) gr2 MDM: 06/20 18:13 Undress patient appropriately for examination ordered. jmk 18:13 NS 0.9% 1000 ml IV at bolus once ordered. jmk 18:14 NOTHING BY MOUTH+DIET ordered. EDMS 18:15 Basic Metabolic Profile Ordered. EDMS 18:15 CBC with Diff Ordered. EDMS 18:15 Lipase Ordered. EDMS 18:15 Liver Profile Ordered. EDMS 18:30 URINALYSIS MANUAL Ordered. EDMS 18:54 Basic Metabolic Profile Reviewed. cs11 18:54 CBC with Diff Reviewed. cs11 18:54 Liver Profile Reviewed. cs11 18:54 URINALYSIS MANUAL Reviewed. cs11 18:54 MICROSCOPIC, URINE Reviewed. cs11 18:54 Lipase Reviewed. cs11 18:55 Ciprofloxacin 400 mg IVPB at 200 mL/hr once over 60 mins ordered. cs11 19:05 morphine 4 mg IVP once ordered. cs11 19:05 Metoclopramide 10 mg IV at 40 mg/hr once over 15 mins; prn emesis ordered. cs11 19:06 CT ABD & PELVIS: No Contrast Ordered. EDMS 19:23 Financial registration complete. zo 19:38 [facility] [place] Payment Agreement was scanned into [employer] and attached to record. zo 19:49 NG/OG Tube 18Fr to L.I.S. with hourly monitoring for placement ordered. cs11 19:52 BED REQUEST+ADM ordered. EDMS 21:06 Admission / Observation Status ordered. EDMS 21:06 NPO DIET ordered. EDMS 21:08 URINE CULTURE Ordered. EDMS 21:22 BLOOD CULTURES Ordered. EDMS 21:22 BLOOD CULTURES Ordered. EDMS 22:11 morphine 2 mg IVP once ordered. mgs 06/21 11:46 T-Sheet-- Draft Copy was scanned into [employer] and attached to record. gb Administered Medications: 06/20 18:21 Drug: NS 0.9% 1000 ml Route: IV; Rate: bolus; Site: left antecubital; jmk 19:34 Drug: Ciprofloxacin 400 mg [ciprofloxacin 400 mg/200 mL in 5 % dextrose intravenous nn1 piggyback] Route: IVPB; Rate: 200 mL/hr; Infused Over: 60 mins; Site: left antecubital; 19:34 Drug: morphine 4 mg [morphine 4 mg/mL intravenous cartridge (1 mL)] Route: IVP; Site: nn1 left antecubital; 22:19 Drug: morphine 2 mg [morphine 2 mg/mL intravenous cartridge (1 mL)] Route: IVP; Site: mgs left antecubital; Signatures: Dispatcher [employer] EDMS Jass Juarez,RN RN Lucina Rosario RN RN dls Iris Parsons, Reg Reg gb Breanne, CtJayde, Cw Operator Unit ml3 Daniel Pope Craig, DO cs11 Carl Egan RN RN mgs Nunez, Nikkole RN nn1 The chart was reviewed and I authenticate all verbal orders and agree with the evaluation and treatment provided.Corrections: (The following items were deleted from the chart) 18:30 18:15 URINALYSIS+LAB ordered. EDMS EDMS Attachments: 19:38 [facility] [place] Payment Agreement zo 06/21 11:46 T-Sheet-- Draft Copy gb Chart Complete MTDD
--- NOTE | 2016-06-23 01:05 | EDDOCDS ---
Nurse's Notes [facility] Name: Linda Hawk Age: 55 yrs Sex: Female : 1960 Arrival Date: 06/20/2016 Time: 16:51 Bed 9 Private MD: NO PRIMARY PHYSICIAN, . Diagnosis: Other specified disorders of kidney and ureter-pyelonephritis;Ileus, unspecified Presentation: 06/20 17:07 Presenting complaint: Patient states: Pt presents with c/o abdominal pain x 4 days dls denies vomiting stools are soft but no diarrhea pain radiating into her back and right hip. Risk factors: the patient reports no vaginal bleeding. Adult Sepsis Screening: The patient does not have new or worsening altered mentation. Patient's respiratory rate is less than 22. Systolic blood pressure is greater than 100. Patient has a qSOFA score of 0- Negative Sepsis Screen. Suicide/Homicide risk assessment- the patient denies having any suicidal and/or homicidal ideations and does not present with any other emotional, behavioral or mental health complaints. Status: Patient is not a household appliances service technician or dependent. Transition of care: patient was not received from another setting of care. 17:07 Acuity: MIKIE Level 3 dls 17:07 Method Of Arrival: Walkin/Carried/Asstd dls Triage Assessment: 17:09 General: Appears slender, uncomfortable, well developed, well nourished, Behavior is dls cooperative. Pain: Pain currently is 7 out of 10 on a pain scale. HIV screening NA for this visit Offered previously. 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 none - PMHx: none; - PSHx: none; - Social history: Smoking status: Patient/guardian denies using No barriers to communication noted, The patient speaks fluent Turkish. - Family history: Not pertinent. - : The pt / caregiver states he / she is not on anticoagulants. Home medication list is obtained from the patient. - Exposure Risk Screening:: None identified. Screenin:21 Screening information is obtained from the patient. Fall risk: No risks identified. jmk Assistance ADL's: requires no assistance with activities of daily living. Abuse/DV Screen: The patient / caregiver reports he/she is: not in a situation that causes fear, pain or injury. Nutritional screening: No deficits noted. Advance Directives: Currently, there is no health care proxy. There is no active DNR order. There is no living will. There is no Power of Fixture Builder. Advance directive information has not previously been placed in an [facility] medical record. home support is adequate. Assessment: 18:21 General: Appears in no apparent distress, skin warm and dry color satisfactory. Moist jmk pink oral mucosa. indicates diffuse abd discomfort. bowel sounds present x 4. + left flank pain of which she states lessens with ambulation. Cardiovascular: No deficits noted. Capillary refill < 3 seconds Clubbing of nail beds is absent Heart tones S1 S2 present. Respiratory: Airway is patent Respiratory effort is even, unlabored, Respiratory pattern is regular, Breath sounds are clear bilaterally. GI: Abdomen is flat, non- distended Bowel sounds present X 4 quads. Abd is soft X 4 quads Abd is tender to palpation X 4 quads. 19:35 General: Patient medicated for pain per orders, fluids and antibiotics infusing. . nn1 Pain: Location: epigastric area, left hip and right hip Pain currently is 10 out of 10 on a pain scale. 19:42 General: Appears in no apparent distress. General: Behavior is cooperative. Pain: mgs Location: right hip, right flank Pain currently is 10 out of 10 on a pain scale. Neurological: Level of Consciousness is awake, alert, Oriented to person, place, time. Cardiovascular: Capillary refill < 3 seconds Heart tones S1 S2 present. Respiratory: Airway is patent Respiratory effort is even, unlabored, Respiratory pattern is regular, symmetrical. Derm: Skin is pink, warm & dry. 20:38 General: Appears in no apparent distress, Behavior is cooperative. Pain: Location: mgs right flank Pain currently is 8 out of 10 on a pain scale. Neurological: Level of Consciousness is awake, alert, Oriented to person, place, time. Cardiovascular: Capillary refill < 3 seconds. Respiratory: Airway is patent Respiratory effort is even, unlabored, Respiratory pattern is regular, symmetrical. Derm: Skin is pink, warm & dry. 21:30 General: Appears in no apparent distress, Behavior is cooperative. Pain: Location: mgs right flank Pain currently is 9 out of 10 on a pain scale. Neurological: Level of Consciousness is awake, alert, Oriented to person, place, time. Cardiovascular: Capillary refill < 3 seconds. Respiratory: Airway is patent Respiratory effort is even, unlabored. Derm: Skin is pink, warm & dry. 22:25 General: Appears in no apparent distress, Behavior is cooperative. Pain: Location: mgs right flank Pain currently is 8 out of 10 on a pain scale. Neurological: Level of Consciousness is awake, alert, Oriented to person, place, time. Cardiovascular: Capillary refill < 3 seconds. Respiratory: Airway is patent Respiratory effort is even, unlabored, Respiratory pattern is regular, symmetrical. Derm: Skin is pink, warm & dry. 22:51 General: Appears in no apparent distress, Behavior is cooperative. Pain: Location: mgs right flank Pain currently is 6 out of 10 on a pain scale. Neurological: Level of Consciousness is awake, alert, Oriented to person, place, time. Cardiovascular: Capillary refill < 3 seconds. Respiratory: Airway is patent Respiratory effort is even, unlabored, Respiratory pattern is regular, symmetrical. Derm: Skin is pink, warm & dry. 22:52 General: Patients 15 year old daughter left with family friend Ni Lyles, patient mgs was ok with this. 23:38 General: Appears in no apparent distress, Behavior is cooperative. Neurological: Level mgs of Consciousness is awake, alert, Oriented to person, place, time. Cardiovascular: Capillary refill < 3 seconds. Respiratory: Airway is patent Respiratory effort is even, unlabored, Respiratory pattern is regular, symmetrical. Derm: Skin is pink, warm & dry. 23:59 General: Appears in no apparent distress, Behavior is cooperative. Neurological: Level mgs of Consciousness is awake, alert, Oriented to person, place, time. Cardiovascular: Capillary refill < 3 seconds. Respiratory: Airway is patent Respiratory effort is even, unlabored, Respiratory pattern is regular, symmetrical. GI: NGT in place, to suction. Derm: Skin is pink, warm & dry. Vital Signs: 16:54 BP 174 / 107; Pulse 126; Resp 18 S; Temp 98.4(O); Pulse Ox 99% on R/A; Weight 65.77 kg gr2 (R); Height 5 ft. 4 in. (162.56 cm) (R); Pain 6/10; 19:30 BP 160 / 82 (auto/); mgs 19:34 BP 160 / 82; nn1 19:34 Pain 10/10; nn1 19:40 Pulse 102 MON; Pulse Ox 95% ; mgs 20:00 Pulse 96 MON; Pulse Ox 95% ; mgs 20:30 Pulse 108 MON; Pulse Ox 95% ; mgs 22:07 BP 145 / 85; Pulse 100; Resp 16; Temp 99.5(O); Pulse Ox 96% on R/A; lr2 06/21 00:00 BP 142 / 87 RA Supine (auto/reg); Pulse 95 MON; Resp 18 S; Temp 98.8(TE); Pulse Ox 95% cln on R/A; Pain 8/10; 06/20 16:54 Body Mass Index 24.89 (65.77 kg, 162.56 cm) gr2 Vitals: 06/20 16:54 Log In Time: June 20, 2016 at 16:54. gr2 ED Course: 16:53 Patient visited by Mario Horowitz. gr2 16:53 Patient moved to Waiting gr2 16:54 NO PRIMARY PHYSICIAN, . is Private Physician. gr2 16:56 Patient visited by Mario Horowitz. gr2 16:56 Patient moved to Pre RCE gr2 17:09 Triage Initiated dls 17:20 Breana Cho,RN is Primary Nurse. kcs 17:20 Patient moved to 9 kcs 18:15 Basic Metabolic Profile Sent. jmk 18:15 CBC with Diff Sent. jmk 18:15 Lipase Sent. jmk 18:15 Liver Profile Sent. jmk 18:21 The patient / caregiver is instructed regarding the plan of care and ED course. jmk 18:21 Inserted saline lock: 20 gauge in left antecubital area. jmk 18:52 Dave Avitia DO is Attending Physician. cs11 18:52 Patient visited by Dave Avitia DO. cs11 19:01 Primary Nurse role handed off by Breana Cho,VERONICA mv5 19:25 Carl Egan,VERONICA is Primary Nurse. mgs 19:38 [facility] Payment Agreement was scanned into [employer] and attached to record. zo 19:49 Patient visited by Carl Egan,VERONICA. mgs 20:05 CT ABD & PELVIS: No Contrast Returned. EDMS 20:38 NGT inserted 18 Fr. via right nare. Placement verified. Returned gastric contents. to mgs intermittent suction. Patient tolerated well. 20:39 Patient visited by Carl Egan RN. mgs 20:44 Richa Flores supervisor pleating. ys2 20:45 Salvador Robledo is Hospitalizing Provider. cs11 22:53 Patient visited by Carl Egan RN. mgs 23:38 Patient visited by Carl Egan RN. mgs 06/21 00:01 Patient visited by Rupinder Hernandez PCA. cln 00:02 No procedures done that require assistance. mgs 11:46 T-Sheet-- Draft Copy was scanned into [employer] and attached to record. gb Administered Medications: 06/20 18:21 Drug: NS 0.9% 1000 ml Route: IV; Rate: bolus; Site: left antecubital; [facility] 19:34 Drug: Ciprofloxacin 400 mg [ciprofloxacin 400 mg/200 mL in 5 % dextrose intravenous nn1 piggyback] Route: IVPB; Rate: 200 mL/hr; Infused Over: 60 mins; Site: left antecubital; 19:34 Drug: morphine 4 mg [morphine 4 mg/mL intravenous cartridge (1 mL)] Route: IVP; Site: nn1 left antecubital; 22:19 Drug: morphine 2 mg [morphine 2 mg/mL intravenous cartridge (1 mL)] Route: IVP; Site: mgs left antecubital; Output: 06/21 00:21 Gastric: 150.00ml (NGT); Total: 150.00ml. mgs Order Results: Lab Order: Basic Metabolic Profile; [facility] 06/20/16 17:37 Test: GLUCOSE, FASTING; Value: 133; Range: 70-105; Abnormal: Above high normal; Units: MG/DL; Status: F Test: BLOOD UREA NITROGEN; Value: 20; Range: 7-18; Abnormal: Above high normal; Units: MG/DL; Status: F Test: CREATININE FOR GFR; Value: 1.01; Range: 0.55-1.02; Units: MG/DL; Status: F Test: GLOMERULAR FILTRATION RATE; Value: > 60.0; Range: >51; Status: F Test: SODIUM LEVEL; Value: 140; Range: 136-145; Units: MEQ/L; Status: F Test: POTASSIUM SERUM; Value: 3.7; Range: 3.5-5.1; Units: MEQ/L; Status: F Test: CHLORIDE LEVEL; Value: 102; Range: 98-107; Units: MEQ/L; Status: F Test: CARBON DIOXIDE LEVEL; Value: 30; Range: 21-32; Units: MEQ/L; Status: F Test: ANION GAP; Value: 8; Range: 8-16; Units: MEQ/L; Status: F Test: CALCIUM LEVEL; Value: 9.8; Range: 8.5-10.1; Units: MG/DL; Status: F Test Note: ; Units are mL/min/1.73 m2 Chronic Kidney Disease Staging per NKF: Stage I & II GFR >=60 Normal to Mildly Decreased Stage III GFR 30-59 Moderately Decreased Stage IV GFR 15-29 Severely Decreased Stage V GFR <15 Very Little GFR Left ESRD GFR <15 on INSTRUMENT LENS GRINDER Lab Order: CBC with Diff; SPEC'M 06/20/16 17:37 Test: WHITE BLOOD COUNT; Value: 17.9; Range: 4.0-10.0; Abnormal: Above high normal; Units: K/mm3; Status: F Test: RED BLOOD COUNT; Value: 5.01; Range: 4.00-5.40; Units: M/mm3; Status: F Test: HEMOGLOBIN; Value: 14.9; Range: 12.0-16.0; Units: g/dl; Status: F Test: HEMATOCRIT; Value: 44.4; Range: 36.0-47.0; Units: %; Status: F Test: MEAN CORPUSCULAR VOLUME; Value: 88.6; Range: 80.0-96.0; Units: fl; Status: F Test: MEAN CORPUSCULAR HEMOGLOBIN; Value: 29.8; Range: 27.0-33.0; Units: pg; Status: F Test: MEAN CORPUSCULAR HGB CONC; Value: 33.6; Range: 32.0-36.5; Units: g/dl; Status: F Test: RED CELL DISTRIBUTION WIDTH; Value: 12.3; Range: 11.5-14.5; Units: %; Status: F Test: PLATELET COUNT, AUTOMATED; Value: 213; Range: 150-450; Units: k/mm3; Status: F Test: NEUTROPHILS %; Value: 91.4; Range: 36.0-66.0; Abnormal: Above high normal; Units: %; Status: F Test: LYMPH %; Value: 3.6; Range: 24.0-44.0; Abnormal: Below low normal; Units: %; Status: F Test: MONO %; Value: 3.8; Range: 0.0-5.0; Units: %; Status: F Test: EOS %; Value: 0.2; Range: 0.0-3.0; Units: %; Status: F Test: BASO %; Value: 0.1; Range: 0.0-1.0; Units: %; Status: F Test: LARGE UNSTAINED CELL %; Value: 0.9; Range: 0.0-4.0; Units: %; Status: F Test: NEUTROPHILS #; Value: 16.4; Range: 1.8-7.7; Abnormal: Above high normal; Units: K/mm3; Status: F Test: LYMPH #; Value: 0.7; Range: 1.5-4.5; Abnormal: Below low normal; Units: K/mm3; Status: F Test: MONO #; Value: 0.7; Range: 0.0-0.8; Units: K/mm3; Status: F Test: EOS #; Value: 0.0; Range: 0.0-0.50; Units: K/mm3; Status: F Test: BASO #; Value: 0.0; Range: 0.0-0.2; Units: K/mm3; Status: F Test: LARGE UNSTAINED CELL #; Value: 0.2; Range: 0.0-0.4; Units: K/mm3; Status: F Lab Order: Lipase; SPEC'M 06/20/16 17:37 Test: LIPASE; Value: 113; Range: 73-393; Units: U/L; Status: F Lab Order: Liver Profile; SPEC'M 06/20/16 17:37 Test: AST/SGOT; Value: 14; Range: 15-37; Abnormal: Below low normal; Units: U/L; Status: F Test: ALT/SGPT; Value: 27; Range: 12-78; Units: U/L; Status: F Test: ALKALINE PHOSPHATASE; Value: 160; Range: 45-117; Abnormal: Above high normal; Units: U/L; Status: F Test: BILIRUBIN,TOTAL; Value: 1.2; Range: 0.2-1.0; Abnormal: Above high normal; Units: MG/DL; Status: F Test: BILIRUBIN,DIRECT; Value: 0.6; Range: 0.0-0.2; Abnormal: Above high normal; Units: MG/DL; Status: F Test: TOTAL PROTEIN; Value: 7.9; Range: 6.4-8.2; Units: GM/DL; Status: F Test: ALBUMIN; Value: 3.4; Range: 3.2-5.2; Units: GM/DL; Status: F Test: ALBUMIN/GLOBULIN RATIO; Value: 0.76; Range: 1.00-1.93; Abnormal: Below low normal; Status: F Lab Order: URINALYSIS MANUAL; SPEC'M 06/20/16 18:19 Test: APPEARANCE, URINE MANUAL; Value: CLOUDY; Range: CLEAR; Abnormal: Above high normal; Status: F Test: COLOR, URINE MANUAL; Value: YELLOW; Range: YELLOW; Status: F Test: PH,URINE MAN; Value: 5.0; Range: 5.0 - 9.0; Units: UNITS; Status: F Test: SPECIFIC GRAVITY,URINE MANUAL; Value: 1.025; Range: 1.002-1.035; Status: F Test: PROTEIN, URINE MANUAL; Value: 2+; Range: NEGATIVE; Abnormal: Above high normal; Units: mg/dL; Status: F Test: GLUCOSE, URINE (UA) MANUAL; Value: NEGATIVE; Range: NEGATIVE; Units: mg/dL; Status: F Test: KETONE, URINE MANUAL; Value: 1+; Range: NEGATIVE; Abnormal: Above high normal; Units: mg/dL; Status: F Test: UROBILINOGEN, URINE MANUAL; Value: 1 MG; Range: NORMAL; Abnormal: Above high normal; Units: mg/dl; Status: F Test: BILIRUBIN, URINE MANUAL; Value: NEGATIVE; Range: NEGATIVE; Status: F Test: NITRITE, URINE MANUAL; Value: NEGATIVE; Range: NEGATIVE; Status: F Test: LEUKOCYTE ESTERASE, URINE MAN; Value: POSITIVE; Range: NEGATIVE; Abnormal: Above high normal; Status: F Test: BLOOD URINE MANUAL; Value: POSITIVE; Range: NEGATIVE; Abnormal: Above high normal; Status: F Lab Order: MICROSCOPIC, URINE; SPEC'M 06/20/16 18:19 Test: WBC, URINE; Value: TNTC; Range: 0-3; Abnormal: Above high normal; Units: /hpf; Status: F Test: RBC, URINE; Value: 0-1; Range: 0-3; Units: /hpf; Status: F Test: SQUAMOUS EPITHELIAL CELL URINE; Value: SMALL AMOUNT; Range: SMALL AMT; Units: /hpf; Status: F Test: BACTERIA, URINE; Value: SMALL AMOUNT; Range: NONE; Abnormal: Above high normal; Status: F Test: HYALINE CAST, URINE; Value: NONE SEEN; Range: 0-1; Units: /lpf; Status: F Test: MICROSCOPIC EXAM; Value: UNSPUN; Status: F Radiology Order: CT ABD & PELVIS: No Contrast Test: CT ABD & PELVIS: No Contrast REASON FOR EXAMINATION: Renal colic; Clinical: Renal colic.; ; Comparison: None.; ; Findings:; Dilated fluid-filled small bowel is appreciated to the right lower quadrant where; collapsed distal/terminal ileum and colon are identified. Findings are; compatible with distal small bowel obstruction possibly secondary to adhesions.; Enteritis involving the distal ileum cannot be excluded. Few scattered colonic; diverticula noted without acute diverticulitis. No free air. Small amount of; free fluid in the pelvis is identified.; ; Liver, spleen, pancreas, gallbladder, bilateral adrenal glands and kidneys are; normal for noncontrast evaluation. No significant adenopathy. Pelvis; demonstrates collapsed bladder and age-appropriate uterus/adnexa. Abdominal; aorta demonstrates minimal atherosclerotic changes without aneurysm.; Musculoskeletal structures demonstrate degenerative changes. Lung bases; demonstrate minimal atelectasis.; ; Impression:; 1. Acute small bowel obstruction. Possible enteritis involving the distal; ileum.; 2. Collapsed colon with scattered diverticula and no evidence for acute; diverticulitis.; 3. Small amount of free fluid in the pelvis.; ; ; Signed by; Ata Schumacher MD 06/20/2016 07:32 P; Outcome: 06/20 20:47 Decision to Hospitalize by Provider. cs11 06/21 00:02 Discharge Assessment: Patient awake, alert and oriented x 3. No cognitive and/or mgs functional deficits noted. Patient verbalized understanding of disposition instructions. patient administered narcotics - yes. Patient was admitted to the hospital or transferred to another facility. The following High Risk Discharge criteria are identified: None. Admitted to Pediatrics accompanied by tech, via stretcher, with chart. Condition: stable. CT Study completed. Property :Personal belongings accompany Pt. 00:04 Patient left the ED. [facility] Signatures: Dispatcher [employer] Farazna Bonilla, RN RN Jass Denise RN RN Lucina Rosario RN RN dls Iris Parsons, Reg Reg gb Arley, Daniel zo Dave Avitia, DO cs11 Mario Horowitz gr2 Carl Egan RN RN mgs Ara LevineRN RN nn1 Richa Flores ys2 Rupinder Hernandez, SAFETY LAMP KEEPER SAFETY LAMP KEEPER reynan Harmony Valenzuela lr2 Breana Cho,RN RN mv5 Corrections: (The following items were deleted from the chart) 06/20 18:30 18:20 URINALYSIS+LAB sent. charly STRATTON Chart Complete MTDD
--- NOTE | 2016-06-23 01:05 | EDDOCDS ---
Physician Documentation [facility] Name: Linda Hawk Age: 55 yrs Sex: Female : 1960 Arrival Date: 06/20/2016 Time: 16:51 Bed 9 Private MD: NO PRIMARY PHYSICIAN, . Disposition: 06/20/16 20:47 Hospitalization ordered by Salvador Robledo for Inpatient Admission. Preliminary diagnosis are Other specified disorders of kidney and ureter - pyelonephritis, Ileus, unspecified. - Bed requested for M PED. - Status is Inpatient Admission. mgs - Condition is Stable. - Problem is new. - Symptoms have improved. Historical: - Allergies: no known allergies; - Home Meds: 1. none - PMHx: none; - PSHx: none; - Social history: Smoking status: Patient/guardian denies using No barriers to communication noted, The patient speaks fluent Bangladeshi. - Family history: Not pertinent. - : The pt / caregiver states he / she is not on anticoagulants. Home medication list is obtained from the patient. - Exposure Risk Screening:: None identified. 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 4 in. (162.56 cm) (R); Pain 6/10; 19:30 BP 160 / 82 (auto/); mgs 19:34 BP 160 / 82; nn1 19:34 Pain 10/10; nn1 19:40 Pulse 102 MON; Pulse Ox 95% ; mgs 20:00 Pulse 96 MON; Pulse Ox 95% ; mgs 20:30 Pulse 108 MON; Pulse Ox 95% ; mgs 22:07 BP 145 / 85; Pulse 100; Resp 16; Temp 99.5(O); Pulse Ox 96% on R/A; lr2 06/21 00:00 BP 142 / 87 RA Supine (auto/reg); Pulse 95 MON; Resp 18 S; Temp 98.8(TE); Pulse Ox 95% cln on R/A; Pain 8/10; 06/20 16:54 Body Mass Index 24.89 (65.77 kg, 162.56 cm) gr2 MDM: 06/20 18:13 Undress patient appropriately for examination ordered. jmk 18:13 NS 0.9% 1000 ml IV at bolus once ordered. jmk 18:14 NOTHING BY MOUTH+DIET ordered. EDMS 18:15 Basic Metabolic Profile Ordered. EDMS 18:15 CBC with Diff Ordered. EDMS 18:15 Lipase Ordered. EDMS 18:15 Liver Profile Ordered. EDMS 18:30 URINALYSIS MANUAL Ordered. EDMS 18:54 Basic Metabolic Profile Reviewed. cs11 18:54 CBC with Diff Reviewed. cs11 18:54 Liver Profile Reviewed. cs11 18:54 URINALYSIS MANUAL Reviewed. cs11 18:54 MICROSCOPIC, URINE Reviewed. cs11 18:54 Lipase Reviewed. cs11 18:55 Ciprofloxacin 400 mg IVPB at 200 mL/hr once over 60 mins ordered. cs11 19:05 morphine 4 mg IVP once ordered. cs11 19:05 Metoclopramide 10 mg IV at 40 mg/hr once over 15 mins; prn emesis ordered. cs11 19:06 CT ABD & PELVIS: No Contrast Ordered. EDMS 19:23 Financial registration complete. zo 19:38 [facility] [place] Payment Agreement was scanned into [employer] and attached to record. zo 19:49 NG/OG Tube 18Fr to L.I.S. with hourly monitoring for placement ordered. cs11 19:52 BED REQUEST+ADM ordered. EDMS 21:06 Admission / Observation Status ordered. EDMS 21:06 NPO DIET ordered. EDMS 21:08 URINE CULTURE Ordered. EDMS 21:22 BLOOD CULTURES Ordered. EDMS 21:22 BLOOD CULTURES Ordered. EDMS 22:11 morphine 2 mg IVP once ordered. mgs 06/21 11:46 T-Sheet-- Draft Copy was scanned into [employer] and attached to record. gb Administered Medications: 06/20 18:21 Drug: NS 0.9% 1000 ml Route: IV; Rate: bolus; Site: left antecubital; jmk 19:34 Drug: Ciprofloxacin 400 mg [ciprofloxacin 400 mg/200 mL in 5 % dextrose intravenous nn1 piggyback] Route: IVPB; Rate: 200 mL/hr; Infused Over: 60 mins; Site: left antecubital; 19:34 Drug: morphine 4 mg [morphine 4 mg/mL intravenous cartridge (1 mL)] Route: IVP; Site: nn1 left antecubital; 22:19 Drug: morphine 2 mg [morphine 2 mg/mL intravenous cartridge (1 mL)] Route: IVP; Site: mgs left antecubital; Signatures: Dispatcher [employer] EDMS Jass Juarez,RN RN Lucina Rosario RN RN dls Iris Parsons, Reg Reg gb Breanne, CtJayde, Prison Officer Unit ml3 Daniel Pope Craig, DO cs11 Carl Egan RN RN mgs Nunez, Nikkole RN nn1 The chart was reviewed and I authenticate all verbal orders and agree with the evaluation and treatment provided.Corrections: (The following items were deleted from the chart) 18:30 18:15 URINALYSIS+LAB ordered. EDMS EDMS Attachments: 19:38 [facility] [place] Payment Agreement zo 06/21 11:46 T-Sheet-- Draft Copy gb Chart Complete MTDD
[2016-06-23] MEDS: PERCOCET 5MG/325MG TAB PO PRN ×3 (01:58→22:32)
[2016-06-23] MEDS: NS 1,000 ML IV SCH ×2 (01:59→14:37)
[2016-06-23] MEDS: HEPARIN SOD (PORCINE) 5000 UNITS/ML VIAL SC SCH ×3 (05:21→21:04)
[2016-06-23 07:27] LABS: ANION GAP 7 MEQ/L (8-16); BLOOD UREA NITROGEN 9 MG/DL (7-18); CALCIUM LEVEL 8.2 MG/DL (8.5-10.1); CARBON DIOXIDE LEVEL 29 MEQ/L (21-32); CHLORIDE LEVEL 107 MEQ/L (98-107); GLOMERULAR FILTRATION RATE > 60.0 (>51); GLUCOSE, FASTING 126 MG/DL (70-105); POTASSIUM SERUM 3.2 MEQ/L (3.5-5.1); SODIUM LEVEL 143 MEQ/L (136-145)
[2016-06-23 07:30] LABS: BASO % 0.2 % (0.0-1.0); EOS # 0.1 K/mm3 (0.0-0.50); EOS % 1.3 % (0.0-3.0); LARGE UNSTAINED CELL # 0.2 K/mm3 (0.0-0.4); LARGE UNSTAINED CELL % 2.4 % (0.0-4.0); LYMPH # 0.8 K/mm3 (1.5-4.5); LYMPH % 9.7 % (24.0-44.0); MEAN CORPUSCULAR HEMOGLOBIN 29.8 pg (27.0-33.0); MEAN CORPUSCULAR HGB CONC 33.2 g/dl (32.0-36.5); MEAN CORPUSCULAR VOLUME 89.8 fl (80.0-96.0); MONO # 0.8 K/mm3 (0.0-0.8); MONO % 9.9 % (0.0-5.0); NEUTROPHILS # 6.4 K/mm3 (1.8-7.7); NEUTROPHILS % 76.5 % (36.0-66.0); PLATELET COUNT, AUTOMATED 210 k/mm3 (150-450); RED CELL DISTRIBUTION WIDTH 12.4 % (11.5-14.5); WHITE BLOOD COUNT 8.4 K/mm3 (4.0-10.0)
[2016-06-23 08:00] VITALS: BP 198/104
[2016-06-23] MEDS: CIPROFLOXACIN 400 MG in APPROPRIATE DILUENT 1 EA IV SCH (08:00)
[2016-06-23] MEDS: PANTOPRAZOLE 40MG INJ (PROTONIX) (C9113) IV SCH (08:10)
[2016-06-23] MEDS: amLODIPine 10 MG TAB PO SCH (08:11)
[2016-06-23] MEDS ORDERED: cloNIDine 0.1 MG TAB PO SCH (09:00)
[2016-06-23] MEDS ORDERED: MOM 30ML SUSPENSION UDC PO PRN (09:15)
--- NOTE | 2016-06-23 09:52 | REP ---
Clinical: Hypoxia. Technique: PA and lateral. Comparison: None. Findings: There is a moderate right pleural effusion with air-fluid level suggesting hydropneumothorax. Right lower lobe consolidation/atelectasis noted along with trace left lower lobe atelectasis and pleural reaction. Lateral view demonstrates a presumed loculated posterior pleural collection overlying the mid thoracic vertebral bodies. Visualized portions of the cardiac silhouette appear relatively normal. Skeletal structures intact. Impression: 1. Moderate right pleural effusion with possible hydropneumothorax and posteriorly loculated pleural fluid and associated right lower lobe consolidation/atelectasis. 2. Mild left lower lobe atelectasis/infiltrate and pleural reaction. Signed by Ata Schumacher MD 06/23/2016 09:43 A
--- NOTE | 2016-06-23 10:33 | REP ---
Clinical: Right flank and right upper quadrant pain. Comparison: 06/20/2016. Findings: Lung bases demonstrate right middle lobe and right lower lobe consolidations with air bronchograms and partially loculated right pleural effusion as well as left lower lobe atelectasis and small left effusion. The enteric system demonstrates continued evidence for enteritis and colonic fecal stasis along with scattered diverticula. Previously noted small bowel obstruction has resolved. A small amount of pelvic free fluid is identified in the posterior cul-de-sac. No obvious free air is appreciated to suggest perforation. Liver, spleen, pancreas, gallbladder, bilateral adrenal glands and kidneys are normal for noncontrast evaluation. Pelvis demonstrates normal bladder and age-appropriate uterus/adnexa. Abdominal aorta without aneurysm. Skeletal structures demonstrate age-related changes without focal osseous abnormality. Impression: 1. Moderate right middle lobe and right lower lobe consolidations with air bronchograms and partially loculated right pleural effusion along with minimal left basilar atelectasis and small left pleural effusion. 2. Evidence for enteritis. Previously suggested small bowel obstruction appears to have resolved. Small amount of free fluid in the pelvis. Signed by Ata Schumacher MD 06/23/2016 10:24 A
[2016-06-23 12:00] VITALS: BP 180/90
[2016-06-23] MEDS: SENOKOT S TAB PO SCH ×2 (12:59→21:04)
[2016-06-23] MEDS ORDERED: POTASSIUM CHLORIDE 10 MEQ SR TABLET PO ONE (15:15)
[2016-06-23] MEDS ORDERED: KETOROLAC 30 MG/ML VIAL (J1885) IV PRN ×2 (15:30→21:30)
[2016-06-23] MEDS ORDERED: ALBUTEROL SULFATE 2.5 MG/0.5 ML INH NEB SOLN INH PRN (15:30)
--- NOTE | 2016-06-23 15:46 | IPN ---
DATE: 06/23/2016 Ms. Hawk is feeling somewhat short of breath with movement today. She took off her oxygen to go to the bathroom and became hypoxic. Temperature 98.5, pulse 100, respiratory rate 20, blood pressure initially 198/104 before her medications this morning, 95% on three liters nasal cannula. Intake and output notable for a negative fluid balance of -490. She is awake, alert, appropriately interactive, pleasantly conversant, in no acute distress. Is unwilling to take deep breaths as she is having some right-sided chest discomfort at her diaphragm. Breathing is symmetrical, somewhat diminished throughout with basilar crackles on both sides and some upper airway noises. No wheezes. Heart is in a regular rate and rhythm, not tachycardic. Abdomen is soft, doughy, nontender. White cell count 8.4, hemoglobin 10.5, BUN 9, creatinine 0.7, potassium 3.2. Repeat urine culture is negative. Blood cultures are pending. Chest xray suggests the possibility of a moderate right pleural effusion and right lower lobe consolidation or atelectasis. Abdominal CT shows moderate right middle lobe and right lower lobe consolidations with air bronchograms and partially loculated right pleural effusion along with minimal left basilar atelectasis and small left pleural effusion. Enteritis appears to have resolved. My assessment is as follows: This is a 55-year-old with urinary tract infection, suspected pyelonephritis, and resolving ileitis. Plan is as follows: 1. Urinary tract infection/pyelonephritis. Patient is continued on Levaquin at this time as she does have finding in the right lung too which are most likely atelectatic based on splinting from her abdominal findings, although underlying pneumonia cannot be definitively excluded. Switching to Levaquin will give appropriate coverage for community-acquired pneumonia as well. If patient is not producing sputum, will be started on respiratory therapy and offered an incentive spirometer. Patient may benefit from vest if she is not improving by tomorrow. 2. The patient has resolved ileus and has been tolerating an advanced diet. Still has not had a bowel movement, will start a bowel regimen. 3. The patient has appropriate deep venous thrombosis (DVT) prophylaxis. 4. The patient continues to have elevated blood pressure. Is on Norvasc and clonidine. Blood pressure is still elevated. I believe she has untreated hypertension as an outpatient which has been undiagnosed due to irregular outpatient care.
[2016-06-23] MEDS: cloNIDine 0.1 MG TAB PO SCH ×2 (15:55→21:02)
[2016-06-23 16:00] VITALS: BP 180/92
[2016-06-23] MEDS: IPRATROPIUM 0.5MG/ALBUTEROL 2.5MG INH SOL UD 3ML (DUONEB)(J7620) NEB SCH ×2 (16:32→20:00)
[2016-06-23] MEDS: PIPERACILLIN/TAZOBACTAM SOD 3.375 GM in D5W MINI-BAG PLUS 50 ML IV SCH ×2 (18:35→23:24)
[2016-06-23 18:36] VITALS: BP 168/104
[2016-06-23 20:00] VITALS: BP 168/96
[2016-06-23] MEDS ORDERED: LevoFLOXacin IV 750 MG in APPROPRIATE DILUENT 1 EA IV SCH (20:00)
[2016-06-23] MEDS ORDERED: CEPACOL LOZENGE PO PRN (20:45)
[2016-06-24] VITALS (8 sets, daily range): BP systolic 107–142; BP diastolic 68–82; O2SAT 91
[2016-06-24] MEDS: PERCOCET 5MG/325MG TAB PO PRN (03:54)
[2016-06-24] MEDS: NS 1,000 ML IV SCH ×2 (03:54→12:12)
[2016-06-24 04:56] LABS: BASO % 0.3 % (0.0-1.0); EOS # 0.1 K/mm3 (0.0-0.50); LARGE UNSTAINED CELL # 0.3 K/mm3 (0.0-0.4); LARGE UNSTAINED CELL % 3.3 % (0.0-4.0); LYMPH # 1.3 K/mm3 (1.5-4.5); MEAN CORPUSCULAR HEMOGLOBIN 29.2 pg (27.0-33.0); MEAN CORPUSCULAR HGB CONC 33.2 g/dl (32.0-36.5); MEAN CORPUSCULAR VOLUME 87.8 fl (80.0-96.0); MONO # 0.8 K/mm3 (0.0-0.8); MONO % 9.8 % (0.0-5.0); NEUTROPHILS # 5.8 K/mm3 (1.8-7.7); NEUTROPHILS % 69.7 % (36.0-66.0); PLATELET COUNT, AUTOMATED 236 k/mm3 (150-450); RED CELL DISTRIBUTION WIDTH 12.3 % (11.5-14.5); WHITE BLOOD COUNT 8.4 K/mm3 (4.0-10.0)
[2016-06-24 05:03] LABS: ANION GAP 7 MEQ/L (8-16); BLOOD UREA NITROGEN 7 MG/DL (7-18); CALCIUM LEVEL 8.1 MG/DL (8.5-10.1); CARBON DIOXIDE LEVEL 31 MEQ/L (21-32); CHLORIDE LEVEL 107 MEQ/L (98-107); CREATININE FOR GFR 0.64 MG/DL (0.55-1.02); GLOMERULAR FILTRATION RATE > 60.0 (>51); GLUCOSE, FASTING 112 MG/DL (70-105); POTASSIUM SERUM 3.3 MEQ/L (3.5-5.1); SODIUM LEVEL 145 MEQ/L (136-145)
[2016-06-24] MEDS: PIPERACILLIN/TAZOBACTAM SOD 3.375 GM in D5W MINI-BAG PLUS 50 ML IV SCH ×3 (06:09→18:00)
[2016-06-24] MEDS: HEPARIN SOD (PORCINE) 5000 UNITS/ML VIAL SC SCH ×3 (06:09→23:56)
[2016-06-24] MEDS ORDERED: POTASSIUM CHLORIDE 10 MEQ SR TABLET PO ONE (06:45)
[2016-06-24 06:54] LABS: MAGNESIUM LEVEL 2.2 MG/DL (1.8-2.4)
[2016-06-24] MEDS: IPRATROPIUM 0.5MG/ALBUTEROL 2.5MG INH SOL UD 3ML (DUONEB)(J7620) NEB SCH ×4 (07:06→19:55)
--- NOTE | 2016-06-24 09:08 | CR ---
DATE OF CONSULTATION: 06/23/2016 Patient seen at the request of Dr. Goyal of the hospitalist service for chest pain with inspiration and a new finding of a pleural effusion and underlying lung consolidation in the right hemithorax. HISTORY OF PRESENT ILLNESS: Patient started to feel unwell this past Monday, 1 week ago. This was manifested by generalized weakness in which then was accompanied by epigastric pain. She denies chest pain at that point in time. The epigastric pain was a dull aching pain rather than a sharp knife-like pain. She had no fever, chills or sweats and no cough, no sputum production. She did not complain of shortness of breath. She walks a mile a day at the gym. There has been no dysphagia and no choking with eating or drinking. She was admitted to the hospital with what was thought to be a urinary tract infection (UTI), but now over the last 2 days has started to complain of right-sided chest pain particularly with inspiration. She never had any dysuria or hematuria. She states that she had a urinary tract infection a number of years ago, but again, this was manifested by frequency but no dysuria. She also had epigastric pain again at that point in time rather than lower abdominal pain. She has been treated with Cipro since she was admitted to the hospital. Her on admission showed positive leukocyte esterase with white cells, which were too numerous to count. Urine culture did not show any clinically significant growth. All the blood cultures have been negative. PAST MEDICAL HISTORY/PAST MEDICAL ILLNESS: Patient states that she has hypertension but is untreated, and she does not take any medications at home. Her blood pressure runs around 148-150/100 at home when she checks it. PAST SURGERIES: None. MEDICATIONS: None. ALLERGIES: None. HABITS: Does not smoke. Does not drink. TRAVEL HISTORY: She has been to [place] 3 years ago, but has never been to the [facility] or [facility]. She was born, bred and raised of [facility] [place]. She was [place] farm. 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 There in asbestos exposure. EXPOSURES: She has a dog, a cat and five rabbits at home. The dog is a [place] Retriever. FAMILY HISTORY: To be determined at a later time. Right now noncontributory. REVIEW OF SYSTEMS: CONSTITUTIONAL: Without fever, chills, sweats or night sweats. Without weight loss or weight gain. EYES: Without diplopia. Without transient monocular blindness. Without prior jaundice. NOSE: Without epistaxis. MOUTH: Has partial upper plates. RESPIRATORY: See HPI. CARDIAC: Without orthopnea, paroxysmal nocturnal dyspnea. Without prior myocardial infarctions, tachycardia or palpitations. Without intermittent claudication. Denies peripheral edema. GASTROINTESTINAL (GI): Without nausea, vomiting, diarrhea, constipation, melena , hematochezia, hematemesis, or lower abdominal pain. He does complain of the above the epigastric pain, which has been subsiding. ENDOCRINE: Without diabetes. Without thyroid disease. NEUROLOGIC: Without paresthesias, paralyses or seizures, or transient monocular blindness. PSYCHIATRIC: Without pathologic anxiety, depression or psychoses. LYMPHATICS: Without lumps and bumps in her neck, axilla or groin that she has noted. HEMATOLOGIC: Without prolonged bleeding times, easy bruisability. PHYSICAL EXAMINATION: GENERAL: Well developed, well nourished, white female in no acute distress. VITAL SIGNS: Temperature is 97.5 with a heart rate of 74 in a sinus rhythm, respiratory rate of 18 without the use of accessory muscles, who is 92% saturated on 3 liters nasal cannula and whose blood pressure is 128/76. EYES: Pupils are equal and round and reactive to light. Extraocular movements intact. Sclerae nonicteric. Nose without deformity. HEAD: Is normocephalic. MOUTH: Shows her mucous membranes to be pink and moist. Lips and commissures without lesions. There is no thrush. She has partial plates on the upper and multiple missing teeth posteriorly on the lower. There is no thrush. NECK: Is supple. There is no jugular venous distention. No subcutaneous emphysema. Trachea is midline. LUNGS: Show a dull percussion note at the right lower base and classic E-to-A impressive egophony with bronchophony and transmitted breath sounds on the right lower hemithorax. Left lung shows normal vesicular sounds with a percussion note that is full to the diaphragm. CARDIAC: Is without murmurs, clicks, gallops or rubs. I cannot feel her point of maximum impulse (PMI). S1 and S2 are normal. ABDOMEN: Soft. Nontender. Bowel sounds are positive. There is no hepatomegaly. No costovertebral angle (CVA) tenderness. In particular, there I do not feel any aortic pulsations and she has very little epigastric pain to deep palpation. EXTREMITIES: Show no pretibial edema. No calf tenderness. No differential swelling of the upper extremities. SKIN: Is warm, dry and perfused. Without cyanosis or mottiling, including the nail beds and knees. NEUROLOGIC: Shows II-XII intact along with gross motor and gross sensation intact. Gait is not tested. PSYCHIATRIC: Shows her to be awake, alert, and oriented times three with appropriate mood and affect and conversational. INVESTIGATIONS: Her white count now is 8.4. On admission, it was 17.9 with a considerable left shift with 91% neutrophils, 3% lymphocytes and 3% monocytes. Differential this morning shows 69% neutrophils, 16% lymphocytes and 9% monocytes. Her hemoglobin and hematocrit is 10.1 and 30.4. Chemistries today show a potassium of 3.3 with a sodium of 145. BUN and creatinine are 6 and 0.64. Glucose is 112 with a calcium of 8.1 and a magnesium of 2.2. On admission, her lipase was 113. Albumin has gone from 3.5 to 2.4 from 06/20/2016 to 06/22/2016. Liver functions were all normal on admission. Her urinalysis is discussed above. Two days ago, 06/22/2016, the urinalysis showed no white cells on manual examination, and only trace leukocyte esterase. Her chest x-ray yesterday shows a pleural effusion with what looks to be an air fluid level. The meniscus is not quite straight, so it may not be an air fluid level, but is certainly flat on the PA film on the right side. On the lateral film, she looks as though she has a loculated posterior collection apart from the lower collection in the lower hemithorax. I do not see any infiltrates on that portion of the lungs that are expanded. A CT of her abdomen, also done yesterday, shows the pleural effusion posteriorly. The loculation may be fluid in the fissure that I see on the chest x-ray. Being an abdominal film it does not show the full chest. Underneath there is considerable consolidation or compression. It looks more consolidated than compressed. Her pancreas is normal as are her adrenals. I see no liver lesions. There are no stones within the gallbladder. I do not seen any renal stones. She has a very full bladder. IMPRESSION: 1. Right-sided pleural effusion, possible empyema. 2. Compression and/or consolidation of right lower lobe, possible pneumonia. 3. Urinalysis consistent with urinary tract infection. 4. Hypertension untreated. 5. Hypokalemia. PLAN AND DISCUSSION: The symptoms are not overwhelming either for UTI or pneumonia. Certainly, she now has pleuritic pain and this pleural effusion could represent indeed an empyema with underlying pneumonia. It is notable that her CT scan done on admission again and abdomen did not show any consolidation or a pleural effusion on the right side in that portio of the chest that is shown on the abdominal CT. Things have certainly changed and she has what looks to be dense consolidation. Furthermore, she has classic full E-to-A egophony consistent with consolidation rather than compression. She certainly had a urinalysis consistent with a UTI, but she had no dysuria, hematuria or suprapubic pain. She is at this point requiring oxygen and she is only 92% saturated on 3 liters. No blood gas is drawn. I would recommend that we undertake a pigtail catheter to drain the fluid and sent it off for studies. My suspicion is this is going to be an empyema with underlying pneumonia. I do say that cautiously she does not have any of the other symptomatic hallmarks of a pneumonia, including fever, chills, cough or sputum production. Her lipase was within normal limits and when doing her history, I transiently considered pancreatitis. Her CT scan shows a normal pancreas, without edema or inflammation. We will have her go down to x-ray today to place a pigtail catheter and I will send the fluid off with a requisite chemistry, cytologies, bacteriology and cell counts. DEBORAH
[2016-06-24] MEDS: PANTOPRAZOLE 40MG INJ (PROTONIX) (C9113) IV SCH (09:42)
[2016-06-24] MEDS: amLODIPine 10 MG TAB PO SCH (09:42)
[2016-06-24] MEDS: SENOKOT S TAB PO SCH (09:42)
[2016-06-24] MEDS: cloNIDine 0.1 MG TAB PO SCH ×3 (09:43→21:00)
[2016-06-24] MEDS ORDERED: LIDOCAINE 1% MDV 20ML VIAL As Ordered ONE (15:45)
[2016-06-24] MEDS ORDERED: NALOXONE INJ 0.4 MG/1 ML VIAL (J2310) As Ordered ONE (16:46)
[2016-06-24] MEDS ORDERED: LABETALOL HCL 100 MG/20 ML VIAL As Ordered ONE (17:01)
[2016-06-24] MEDS ORDERED: LORazepam 2 MG/ML VIAL (J2060) As Ordered ONE (17:02)
[2016-06-24 17:17] LABS: ABG BASE EXCESS -2.3 (-2.0-2.0); ABG HCO3 19.7 MEQ/L (22.0-26.0); ABG PARTIAL PRESSURE CO2 26.8 mmHg (35.0-45.0); ABG PARTIAL PRESSURE O2 113.7 mmHg (75.0-100.0); ABG STANDARD HCO3 22.6 MEQ/L (22.0-26.0); ABG TOTAL CO2 20.6 MEQ/L (22.0-29.0); ABG pH (ARTERIAL) 7.485 UNITS (7.350-7.450)
[2016-06-24] MEDS ORDERED: ISOVUE-370 76% 100ML VIAL (Q9967) As Ordered ONE (17:27)
[2016-06-24] MEDS ORDERED: MIDAZOLAM INJ 2 MG/2 ML VIAL (J2250) As Ordered ONE (17:39)
[2016-06-24] MEDS ORDERED: fentaNYL 250 MCG/5 ML INJECTION (J3010) As Ordered ONE (17:39)
[2016-06-24 17:49] LABS: BASO % 0.4 % (0.0-1.0); EOS # 0.1 K/mm3 (0.0-0.50); EOS % 0.7 % (0.0-3.0); LARGE UNSTAINED CELL # 0.4 K/mm3 (0.0-0.4); LYMPH # 2.1 K/mm3 (1.5-4.5); LYMPH % 15.9 % (24.0-44.0); MEAN CORPUSCULAR HEMOGLOBIN 29.6 pg (27.0-33.0); MEAN CORPUSCULAR HGB CONC 33.4 g/dl (32.0-36.5); MEAN CORPUSCULAR VOLUME 88.5 fl (80.0-96.0); MONO # 1.1 K/mm3 (0.0-0.8); MONO % 7.9 % (0.0-5.0); NEUTROPHILS # 9.6 K/mm3 (1.8-7.7); NEUTROPHILS % 72.1 % (36.0-66.0); RED CELL DISTRIBUTION WIDTH 12.6 % (11.5-14.5); WHITE BLOOD COUNT 13.3 K/mm3 (4.0-10.0)
[2016-06-24 17:51] LABS: PLATELET COUNT, AUTOMATED 368 k/mm3 (150-450)
[2016-06-24 17:53] LABS: ANION GAP 12 MEQ/L (8-16); CALCIUM LEVEL 8.6 MG/DL (8.5-10.1); CARBON DIOXIDE LEVEL 21 MEQ/L (21-32); CHLORIDE LEVEL 106 MEQ/L (98-107); CREATININE FOR GFR 0.83 MG/DL (0.55-1.02); GLOMERULAR FILTRATION RATE > 60.0 (>51); GLUCOSE, FASTING 182 MG/DL (70-105); MAGNESIUM LEVEL 2.2 MG/DL (1.8-2.4); POTASSIUM SERUM 3.9 MEQ/L (3.5-5.1); SODIUM LEVEL 139 MEQ/L (136-145)
[2016-06-24 17:57] LABS: BLOOD UREA NITROGEN 8 MG/DL (7-18)
--- NOTE | 2016-06-24 17:59 | REP ---
Clinical: Altered mental status . Comparison: None . Findings: The ventricles, sulci, and cisterns are normal in position and appearance. Landaverde-white differentiation is maintained. No acute intracranial hemorrhage, mass/mass effect, pathology or trauma/injury. No evidence for acute infarction. No extra-axial fluid collection. Calvarium is intact. Paranasal sinuses and mastoid air cells are clear. Impression: Normal noncontrast head CT. No evidence for acute intracranial pathology or trauma/injury. Signed by Ata Schumacher MD 06/24/2016 05:50 P
[2016-06-24] MEDS ORDERED: ceFAZolin 1GM INJ (J0690) As Ordered ONE (18:08)
--- NOTE | 2016-06-24 18:17 | REP ---
Clinical: Status post cardiac arrest. Technique: Axial pre and postcontrast images of the chest from the thoracic inlet to the upper abdomen using 100 ml Isovue 370 intravenous contrast material with coronal and sagittal re-formations. Findings: A small to moderate right hydropneumothorax is identified. Two pigtail catheters are appreciated. First catheter extends via posterior approach into the posterior right pleural space at approximately the T10 level. A second pigtail catheter via posterior approach extends into the right hilum inseparable from both the right main pulmonary artery and pulmonary vein. Right lower lobe consolidation with air bronchograms along with bibasilar atelectasis and right middle lobe atelectasis noted. Heart and pericardium appear normal. No obvious adenopathy. Osseous structures are intact. Impression: 1. A pigtail catheter is identified via right posterior approach and appears to terminate in the region of the right hilum inseparable from both the right main pulmonary artery and vein. 2. Moderate right hydropneumothorax with the second pigtail catheter via posterior approach in the posterior pleural cavity. Right lower lobe consolidation with air bronchograms along with bibasilar and right middle lobe atelectasis. Signed by Ata Schumacher MD 06/24/2016 06:09 P
[2016-06-24 18:31] LABS: LDH, BODY FLUID 648 U/L (NOT ESTABLISHED); TOTAL PROTEIN, BODY FLUID 3.4 G/DL (NOT ESTABLISHED)
[2016-06-24] MEDS ORDERED: CALCIUM CHLORIDE 10% 1 GM/10 ML SYR As Ordered ONE (18:32)
--- NOTE | 2016-06-24 18:36 | REP ---
ULTRASOUND GUIDED DRAINAGE OF RIGHT PLEURAL FLUID COLLECTION: The patient was referred for ultrasound guided drainage of two pleural fluid collections, one more superiorly and one inferiorly located. The procedure was explained in detail to the patient including the risks, which include, but are not limited to hemorrhage, injury to internal structures, infection, pain and pneumothorax. Informed consent was obtained. Under sterile conditions and after satisfactory administration of local anesthesia, using ultrasound guidance a #10-Macedonian skater pigtail drainage catheter is placed into the more inferior complex fluid collection. There are multiple septations in the pleural fluid collection. Approximately 30 mL of blood tinged fluid was aspirated. The catheter was left in place to be hooked up to a Pleur-evac. Attention was then focused on the more superior locule of pleural fluid. Again under sterile conditions and after satisfactory administration of local anesthesia, using ultrasound guidance, a #10-Maced[place] skater pigtail drainage catheter was placed into the pleural fluid collection. Aspiration yielded bloody fluid and I aspirated about 900 mL before the patient became vasovagal and syncopized. A rapid assessment alert was initiated and the rapid assessment team arrived shortly thereafter and took over care of the patient. A subsequent chest CT showed that the pleural drainage catheter actually traversed through that more superior pleural fluid collection and into a pulmonary vein, which resulted in aspirating blood. Dr. Calvin was immediately informed and the patient was brought to the OR for removal of the catheter. Signed by Samir Landaverde MD 06/24/2016 06:51 P
--- NOTE | 2016-06-24 18:48 | IPN ---
DATE: 06/24/2016 RAPID ASSESSMENT NOTE: Rapid assessment team was called overhead to the ultrasound suite. The drainage of the right hemithorax and placement of pigtail catheter, the patient had a great deal of blood produced from one of the pigtail catheters. She became bradycardiac according to tech at the scene and became apneic. She always retained a pulse. Upon arrival, the patient was receiving oxygen. Bag-mask ventilation was begun. She was empirically given Narcan with no effect. She went on to develop enlarged pupils with eyes deviated to the right with increased tone on the left side of the body. Blood pressure became markedly elevated. She was in what appeared to be a sinus tachycardia. There was immediate concern for the possibility of torn vessel or stroke and or seizure. She was transferred to the emergency department as there was no available intensive care bed. STAT portable chest x-ray was done. Multiple blood tests were ordered. Blood was ordered empirically. She was taken to the CT scanner. CT scan of the head showed no obvious evidence of bleed. CT scan of the chest showed suspicion for catheter piercing a great vessel of the chest and Dr. Velázquez and Dr. Calvin were present during the course of her emergency room (ER) evaluation. In fact, Dr. Velázquez was present in the ultrasound suite as well. Greatly appreciated their care in this matter. I did discuss the case with the patient's daughter Shakira at some length. Also called the patient's brother in [place]. Patient at this point has been taken to the operating room for repair of her injury. I anticipate that she will require significant blood transfusion and should she survive this operation will be transferred to the intensive care unit, most likely intubated and sedated. DEBORAH
[2016-06-24] MEDS ORDERED: BUPIVACAINE LIPOSOME/PF 1.3% 20 ML VIAL (13.3MG/ML)(EXPAREL) As Ordered ONE (18:56)
[2016-06-24] MEDS ORDERED: BUPIVACAINE HCL 0.5% 10 ML VIAL As Ordered ONE (18:56)
[2016-06-24 18:57] LABS: ABG BASE EXCESS -2.4 (-2.0-2.0); ABG DEVICE MECHAN. VENT; ABG HCO3 22.3 MEQ/L (22.0-26.0); ABG PARTIAL PRESSURE O2 304.3 mmHg (75.0-100.0); ABG STANDARD HCO3 22.5 MEQ/L (22.0-26.0); ABG TOTAL CO2 23.5 MEQ/L (22.0-29.0); ABG pH (ARTERIAL) 7.387 UNITS (7.350-7.450)
[2016-06-24 19:02] LABS: MEAN CORPUSCULAR HGB CONC 33.7 g/dl (32.0-36.5); MEAN CORPUSCULAR VOLUME 89.2 fl (80.0-96.0); RED CELL DISTRIBUTION WIDTH 13.1 % (11.5-14.5)
[2016-06-24] MEDS ORDERED: ROCURONIUM BROMIDE 50 MG/5 ML VIAL As Ordered ONE (19:04)
[2016-06-24 19:09] LABS: BF DIFF IF INDICATED? YES (NO)
[2016-06-24 19:11] LABS: CC BF DIFF EXAM CYTOCENTRIFUGE
[2016-06-24 19:13] LABS: INR 1.27
[2016-06-24] MEDS ORDERED: dexameTHASONE 4 MG/ML 1ML VIAL (J1100) As Ordered ONE (19:15)
[2016-06-24 19:18] LABS: ANION GAP 9 MEQ/L (8-16); BLOOD UREA NITROGEN 8 MG/DL (7-18); CALCIUM LEVEL 7.2 MG/DL (8.5-10.1); CARBON DIOXIDE LEVEL 25 MEQ/L (21-32); CHLORIDE LEVEL 108 MEQ/L (98-107); CREATININE FOR GFR 0.66 MG/DL (0.55-1.02); GLOMERULAR FILTRATION RATE > 60.0 (>51); GLUCOSE, FASTING 173 MG/DL (70-105); POTASSIUM SERUM 3.5 MEQ/L (3.5-5.1); SODIUM LEVEL 142 MEQ/L (136-145)
[2016-06-24] MEDS ORDERED: PHENYLEPHRINE INJ 10MG/ML VIAL (J2370) As Ordered ONE (19:33)
[2016-06-24] MEDS ORDERED: PROPOFOL 200 MG/20 ML VIAL As Ordered ONE (19:33)
[2016-06-24] MEDS ORDERED: LEVALBUTEROL 1.25 MG/0.5 ML CONCENTRATE NEB NEB SCH (20:00)
[2016-06-24] MEDS ORDERED: HYDROmorphone HCL 2 MG/ML 1ML VIAL (J1170) As Ordered ONE (20:22)
[2016-06-24] MEDS ORDERED: DESFLURANE 240 ML INHALANT As Ordered ONE (20:22)
[2016-06-24] MEDS ORDERED: diphenhydrAMINE INJ 50MG/ML VIAL (J1200) As Ordered ONE (20:24)
[2016-06-24] MEDS ORDERED: BUPIVACAINE HCL 0.5% 30 ML VIAL XX ONE (20:48)
[2016-06-24] MEDS ORDERED: BUPIVACAINE LIPOSOME/PF 1.3% 20 ML VIAL (13.3MG/ML)(EXPAREL) XX ONE (20:48)
[2016-06-24] MEDS ORDERED: ceFAZolin 2 GM/D5W 50 ML IV BAG (J0690) IV ONE (20:50)
[2016-06-24] MEDS: DOCUSATE SODIUM 100 MG CAP PO SCH (21:00)
[2016-06-24 21:01] LABS: MEAN CORPUSCULAR HEMOGLOBIN 29.3 pg (27.0-33.0); MEAN CORPUSCULAR VOLUME 88.6 fl (80.0-96.0); RED CELL DISTRIBUTION WIDTH 13.2 % (11.5-14.5); WHITE BLOOD COUNT 12.9 K/mm3 (4.0-10.0)
[2016-06-24 21:01] LABS: ABG BASE EXCESS -5.7 (-2.0-2.0); ABG DEVICE MECHAN. VENT; ABG HCO3 21.4 MEQ/L (22.0-26.0); ABG PARTIAL PRESSURE CO2 47.9 mmHg (35.0-45.0); ABG PARTIAL PRESSURE O2 78.6 mmHg (75.0-100.0); ABG STANDARD HCO3 19.8 MEQ/L (22.0-26.0); ABG TOTAL CO2 22.8 MEQ/L (22.0-29.0); ABG pH (ARTERIAL) 7.267 UNITS (7.350-7.450)
[2016-06-24] MEDS ORDERED: MIDAZOLAM INJ 5 MG/ML VIAL (J2250) As Ordered ONE (21:02)
--- NOTE | 2016-06-24 21:07 | IPN ---
DATE: 06/24/2016 Ms. Hawk is feeling much better this morning. She thinks that the increased dose of Toradol was effective in controlling her pain. She dos not feel particularly short of breath. Does not cough. Is not producing sputum. Has yet to receive vest therapy. Temperature is 96.8, pulse 86, respiratory rate 22, blood pressure 126/68, 95% on 3 liters. Intake and output negative for a negative fluid balance of -3380. Weight 72 kg with a body mass index of 27.2. She is awake, appropriately interactive, pleasantly conversant. Breathing is symmetrical. No accessory muscle use. Speaking in complete sentences. Decreased aeration in the right base, which is improved from yesterday. No wheezes. Heart is distant sounding. Normal S1, S2. Abdomen soft, doughy, nontender. White cell count 8.4, hemoglobin 10.1. BUN 7, creatinine 0.64, potassium 3.3. ASSESSMENT: This is a 55-year-old with urinary tract infection with what was suspected to be a pyelonephritis and resolving ileitis who yesterday had developing hypoxia and was found to have a right-sided pleural effusion and possible underlying consolidation or atelectasis. PLAN: 1. The patient is being treated for a urinary tract infection/pyelonephritis with Cipro, which was tentatively changed to Levaquin yesterday and then onward to Zosyn. She has no white cell count, no fever. Main complaint at this point is pleuritic right-sided pain. Will transfer to the progressive care unit (PCU). Consult Dr. Calvin. Plans for pigtail catheter placement to assess underlying fluid. That is pending for today. The possibility of undiagnosed community-acquired pneumonia is considered. 2. Patient has resolved ileus and ileitis. Is tolerating advanced diet. Did have a bowel movement today. 3. Patient has appropriate deep vein thrombosis (DVT) prophylaxis. 4. Patient had previously undiagnosed hypertension, which is more reasonably well controlled on the current regimen. Hold parameters will be placed on her medications. Current medication regimen will need to be adjusted to a more permanent regimen on discharge.
[2016-06-24] MEDS ORDERED: PROPOFOL 1,000 MG/100 ML VIAL As Ordered ONE (21:16)
[2016-06-24] MEDS ORDERED: D5W/0.9% SODIUM CHLORIDE 1,000 ML IV SCH (21:20)
[2016-06-24] MEDS ORDERED: BISACODYL 10 MG SUPP PR PRN (21:30)
[2016-06-24] MEDS ORDERED: LEVALBUTEROL 1.25 MG/0.5 ML CONCENTRATE NEB NEB PRN (21:30)
[2016-06-24] MEDS ORDERED: ONDANSETRON 4MG/2ML VIAL (J2405) IV PRN (21:30)
[2016-06-24 21:58] LABS: BASO % 0.2 % (0.0-1.0); EOS # 0.1 K/mm3 (0.0-0.50); EOS % 0.4 % (0.0-3.0); LARGE UNSTAINED CELL # 0.1 K/mm3 (0.0-0.4); LARGE UNSTAINED CELL % 0.9 % (0.0-4.0); LYMPH # 0.4 K/mm3 (1.5-4.5); MEAN CORPUSCULAR HEMOGLOBIN 29.7 pg (27.0-33.0); MEAN CORPUSCULAR HGB CONC 33.7 g/dl (32.0-36.5); MEAN CORPUSCULAR VOLUME 88.3 fl (80.0-96.0); MONO # 0.5 K/mm3 (0.0-0.8); MONO % 3.5 % (0.0-5.0); NEUTROPHILS # 13.5 K/mm3 (1.8-7.7); NEUTROPHILS % 91.9 % (36.0-66.0); PLATELET COUNT, AUTOMATED 239 k/mm3 (150-450); RED CELL DISTRIBUTION WIDTH 13.2 % (11.5-14.5); WHITE BLOOD COUNT 14.7 K/mm3 (4.0-10.0)
[2016-06-24 22:02] LABS: ABG HCO3 22.2 MEQ/L (22.0-26.0); ABG PARTIAL PRESSURE CO2 49.8 mmHg (35.0-45.0); ABG PARTIAL PRESSURE O2 74.8 mmHg (75.0-100.0); ABG STANDARD HCO3 20.3 MEQ/L (22.0-26.0); ABG TOTAL CO2 23.7 MEQ/L (22.0-29.0); ABG pH (ARTERIAL) 7.267 UNITS (7.350-7.450)
[2016-06-24 22:19] LABS: ANION GAP 7 MEQ/L (8-16); BLOOD UREA NITROGEN 7 MG/DL (7-18); CALCIUM LEVEL 7.6 MG/DL (8.5-10.1); CARBON DIOXIDE LEVEL 27 MEQ/L (21-32); CHLORIDE LEVEL 109 MEQ/L (98-107); CREATININE FOR GFR 0.58 MG/DL (0.55-1.02); GLOMERULAR FILTRATION RATE > 60.0 (>51); GLUCOSE, FASTING 167 MG/DL (70-105); POTASSIUM SERUM 4.3 MEQ/L (3.5-5.1); SODIUM LEVEL 143 MEQ/L (136-145)
[2016-06-24] MEDS ORDERED: PROPOFOL 1,000 MG/100 ML VIAL IV SCH (22:30)
[2016-06-24] MEDS ORDERED: LR 1,000 ML IV SCH (22:30)
[2016-06-24] MEDS ORDERED: fentaNYL 100 MCG/2 ML INJECTION (J3010) IV PRN (22:30)
[2016-06-24 23:51] LABS: ABG BASE EXCESS -1.9 (-2.0-2.0); ABG PARTIAL PRESSURE CO2 45.1 mmHg (35.0-45.0); ABG PARTIAL PRESSURE O2 71.3 mmHg (75.0-100.0); ABG STANDARD HCO3 22.8 MEQ/L (22.0-26.0); ABG TOTAL CO2 25.4 MEQ/L (22.0-29.0); ABG pH (ARTERIAL) 7.344 UNITS (7.350-7.450)
[2016-06-25] VITALS (33 sets, daily range): BP systolic 118–195; BP diastolic 67–97; O2SAT 95
[2016-06-25] MEDS ORDERED: MIDAZOLAM INJ 2 MG/2 ML VIAL (J2250) IV PRN
[2016-06-25] MEDS ORDERED: ALBUTEROL SULFATE 2.5 MG/0.5 ML INH NEB SOLN NEB PRN
[2016-06-25] MEDS: PROPOFOL 1,000 MG in APPROPRIATE DILUENT 1 EA IV SCH ×7 (00:23→23:26)
[2016-06-25] MEDS: IPRATROPIUM 0.5MG/ALBUTEROL 2.5MG INH SOL UD 3ML (DUONEB)(J7620) NEB SCH ×3 (01:04→10:11)
[2016-06-25] MEDS: CHLORHEXIDINE GLUCONATE 0.12 % 15ML UDC (PERIDEX ORAL RINSE) MT SCH ×3 (01:22→21:46)
[2016-06-25] MEDS: PIPERACILLIN/TAZOBACTAM SOD 3.375 GM in D5W MINI-BAG PLUS 50 ML IV SCH ×4 (01:23→18:46)
[2016-06-25] MEDS: MORPHINE 2 MG/ML 1ML SYRINGE IV PRN ×3 (03:15→16:28)
[2016-06-25] MEDS ORDERED: KETOROLAC 30 MG/ML VIAL (J1885) IV SCH (04:00)
[2016-06-25 05:35] LABS: BASO % 0.2 % (0.0-1.0); EOS % 0.3 % (0.0-3.0); LARGE UNSTAINED CELL # 0.1 K/mm3 (0.0-0.4); LARGE UNSTAINED CELL % 0.8 % (0.0-4.0); LYMPH # 0.6 K/mm3 (1.5-4.5); LYMPH % 3.4 % (24.0-44.0); MEAN CORPUSCULAR HEMOGLOBIN 30.6 pg (27.0-33.0); MEAN CORPUSCULAR HGB CONC 34.5 g/dl (32.0-36.5); MEAN CORPUSCULAR VOLUME 88.6 fl (80.0-96.0); MONO # 0.7 K/mm3 (0.0-0.8); MONO % 5.2 % (0.0-5.0); NEUTROPHILS # 12.4 K/mm3 (1.8-7.7); NEUTROPHILS % 90.1 % (36.0-66.0); PLATELET COUNT, AUTOMATED 244 k/mm3 (150-450); RED CELL DISTRIBUTION WIDTH 13.5 % (11.5-14.5); WHITE BLOOD COUNT 13.7 K/mm3 (4.0-10.0)
[2016-06-25 05:37] LABS: ALBUMIN 2.1 GM/DL (3.2-5.2); ALBUMIN/GLOBULIN RATIO 0.75 (1.00-1.93); ALKALINE PHOSPHATASE 164 U/L (45-117); ALT/SGPT 60 U/L (12-78); AMYLASE 20 U/L (25-115); ANION GAP 9 MEQ/L (8-16); AST/SGOT 55 U/L (15-37); BILIRUBIN,TOTAL 1.9 MG/DL (0.2-1.0); BLOOD UREA NITROGEN 7 MG/DL (7-18); CALCIUM LEVEL 7.9 MG/DL (8.5-10.1); CARBON DIOXIDE LEVEL 26 MEQ/L (21-32); CHLORIDE LEVEL 114 MEQ/L (98-107); CHOLESTEROL LEVEL 114 MG/DL (< 200); CREATININE FOR GFR 0.71 MG/DL (0.55-1.02); GLOMERULAR FILTRATION RATE > 60.0 (>51); GLUCOSE, FASTING 212 MG/DL (70-105); PHOSPHORUS LEVEL 2.3 MG/DL (2.5-4.9); POTASSIUM SERUM 3.8 MEQ/L (3.5-5.1); SODIUM LEVEL 149 MEQ/L (136-145); TOTAL PROTEIN 4.9 GM/DL (6.4-8.2); TRIGLYCERIDES LEVEL 187 MG/DL (<150)
[2016-06-25 06:25] LABS: ABG BASE EXCESS 1.4 (-2.0-2.0); ABG HCO3 26.4 MEQ/L (22.0-26.0); ABG PARTIAL PRESSURE CO2 43.4 mmHg (35.0-45.0); ABG PARTIAL PRESSURE O2 88.3 mmHg (75.0-100.0); ABG STANDARD HCO3 25.7 MEQ/L (22.0-26.0); ABG TOTAL CO2 27.7 MEQ/L (22.0-29.0); ABG pH (ARTERIAL) 7.402 UNITS (7.350-7.450)
[2016-06-25] MEDS ORDERED: FUROSEMIDE 40 MG/4 ML VIAL (J1940) IV ONE (08:00)
--- NOTE | 2016-06-25 08:02 | REP ---
Clinical: Status post intubation. Comparison: 06/24/2016. Findings: Two right apical chest tubes are in stable position. Endotracheal tube approximately 2.5 cm above the jailene. Nasogastric tube courses below left hemidiaphragm. Mediastinum and cardiac silhouette are grossly normal. Opacifications involving the right hemithorax and left base remain relatively stable. Small amount of subcutaneous emphysema along the right lateral chest wall and thoracic inlet. Impression: No significant change from prior examination. Signed by Ata Schumacher MD 06/25/2016 07:54 A
--- NOTE | 2016-06-25 08:29 | REP ---
Clinical: Status post thoracotomy and venotomy. Comparison: 06/24/2016. Findings: Endotracheal tube approximately 2.2 cm above the jailene. Nasogastric tube courses below left hemidiaphragm. The two previously identified pigtail catheters overlying the right hemithorax have been removed and two right-sided chest tubes extending to the right apex are now identified. Small amount of right subcutaneous emphysema noted. Diffuse opacification of the right hemithorax as well as left mid to lower lobe atelectasis noted. Impression: Opacities involving the right hemithorax and left lower lobe. Two right apical chest tubes replace the previously identified pigtail catheters. Signed by Ata Schumacher MD 06/25/2016 08:21 A
[2016-06-25] MEDS: HEPARIN SOD (PORCINE) 5000 UNITS/ML VIAL SC SCH ×2 (09:00→21:47)
[2016-06-25] MEDS: DOCUSATE SODIUM 100 MG CAP PO SCH ×2 (09:00→20:56)
[2016-06-25] MEDS ORDERED: PANTOPRAZOLE 40MG TAB (PROTONIX) PO SCH (09:00)
[2016-06-25] MEDS ORDERED: PANTOPRAZOLE 40MG INJ (PROTONIX) (C9113) IV SCH (09:00)
[2016-06-25] MEDS: MOM 30ML SUSPENSION UDC PO SCH (09:00)
[2016-06-25] MEDS: cloNIDine 0.1 MG TAB PO SCH ×3 (10:51→21:46)
[2016-06-25] MEDS: ALBUTEROL SULFATE 2.5 MG/0.5 ML INH NEB SOLN NEB SCH ×3 (11:38→21:03)
[2016-06-25] MEDS ORDERED: SLF 3 ML SYR IV PRN (14:00)
[2016-06-25] MEDS ORDERED: SODIUM CHLORIDE 0.9% INJ 10 ML SYR IV SCH (14:00)
[2016-06-25] MEDS ORDERED: SODIUM CHLORIDE 0.9% INJ 10 ML SYR IV PRN (14:00)
[2016-06-25] MEDS: SLF 3 ML SYR IV SCH ×2 (14:10→21:46)
[2016-06-25] MEDS ORDERED: NALOXONE INJ 0.4 MG/1 ML VIAL (J2310) ONE (15:21)
[2016-06-25] MEDS: amLODIPine 10 MG TAB PO SCH (18:02)
[2016-06-26] VITALS (29 sets, daily range): BP systolic 116–217; BP diastolic 61–105; O2SAT 91–95
[2016-06-26] MEDS: PIPERACILLIN/TAZOBACTAM SOD 3.375 GM in D5W MINI-BAG PLUS 50 ML IV SCH ×4 (00:10→17:33)
[2016-06-26] MEDS: PROPOFOL 1,000 MG in APPROPRIATE DILUENT 1 EA IV SCH ×2 (02:56→05:57)
[2016-06-26] MEDS: ALBUTEROL SULFATE 2.5 MG/0.5 ML INH NEB SOLN NEB SCH ×6 (03:58→21:01)
[2016-06-26] MEDS: MORPHINE 2 MG/ML 1ML SYRINGE IV PRN ×5 (04:41→20:15)
[2016-06-26 05:09] LABS: BASO % 0.2 % (0.0-1.0); EOS # 0.2 K/mm3 (0.0-0.50); LARGE UNSTAINED CELL # 0.2 K/mm3 (0.0-0.4); LYMPH # 1.8 K/mm3 (1.5-4.5); LYMPH % 11.4 % (24.0-44.0); MEAN CORPUSCULAR VOLUME 88.2 fl (80.0-96.0); MONO # 0.9 K/mm3 (0.0-0.8); MONO % 5.9 % (0.0-5.0); NEUTROPHILS # 11.9 K/mm3 (1.8-7.7); NEUTROPHILS % 80.5 % (36.0-66.0); PLATELET COUNT, AUTOMATED 289 k/mm3 (150-450); RED CELL DISTRIBUTION WIDTH 13.7 % (11.5-14.5); WHITE BLOOD COUNT 14.8 K/mm3 (4.0-10.0)
[2016-06-26 05:26] LABS: ALBUMIN/GLOBULIN RATIO 0.67 (1.00-1.93); ALKALINE PHOSPHATASE 148 U/L (45-117); ALT/SGPT 53 U/L (12-78); ANION GAP 8 MEQ/L (8-16); AST/SGOT 43 U/L (15-37); BILIRUBIN,TOTAL 0.9 MG/DL (0.2-1.0); BLOOD UREA NITROGEN 15 MG/DL (7-18); CALCIUM LEVEL 7.8 MG/DL (8.5-10.1); CARBON DIOXIDE LEVEL 30 MEQ/L (21-32); CHLORIDE LEVEL 109 MEQ/L (98-107); CHOLESTEROL LEVEL 134 MG/DL (< 200); CREATININE FOR GFR 0.67 MG/DL (0.55-1.02); GLOMERULAR FILTRATION RATE > 60.0 (>51); GLUCOSE, FASTING 123 MG/DL (70-105); PHOSPHORUS LEVEL 2.2 MG/DL (2.5-4.9); POTASSIUM SERUM 3.6 MEQ/L (3.5-5.1); SODIUM LEVEL 147 MEQ/L (136-145); TRIGLYCERIDES LEVEL 388 MG/DL (<150)
[2016-06-26] MEDS: SLF 3 ML SYR IV SCH ×3 (05:57→21:32)
--- NOTE | 2016-06-26 08:01 | IPN ---
DATE: 06/25/2016 This is now the first postoperative day for Mrs. Hawk after removal of the pigtail catheter from the pulmonary vein and left atrium. She is still sedated. Her blood pressure has been relatively high and we are trying to get her down before we let her up. Nonetheless, her sedation was decreased transiently this morning and it is evident she had motion on her right extremity and her left lower extremity according to the nursing staff. Her right upper extremity also had some motion. It was less than the right extremity. Her vital signs show a T-max of 97.2 with a heart rate that ranges between 62 and 79 in a sinus rhythm, a respiratory rate of 20 on the full ventilator, with a PRVC with a rate of 20 and FiO2 of 60% with a PEEP of 7 and a tidal volume of 380. Her ventilatory support rate is 20 and she is not over breathing secondary to sedation. Her blood pressure is ranging between 158/79 to 118/70. With the ventilatory settings, she is 93% to 97% saturated. Her intake and output the past 24 hours has been recorded as 9200 in and 2380 out for a positivity of 6800 mL. That includes 5 units of packed cells, 2 units of fresh frozen plasma (FFP) and one pack of platelets at surgery. Her urine output up until 12 o'clock midnight was 1810 and up until now at 11 o'clock her urine output has been 1865. I have given her some Lasix. There is no air leak. She has put out 120 mL from the chest tube up until midnight and 22 since midnight. On physical examination, she is sedated. There are decreased breath sounds on the right side with crackles lateral and inferiorly. The left shows fairly normal vesicular sounds. I hear no wheezing. Cardiac Exam: Without murmurs, clicks, gallops, or rubs. I cannot feel her PMI. S1, S2 are normal. Abdomen: Soft. Nontender that I can tell through her sedation. Bowel sounds are negative. There is no distention. Extremities: Surprisingly show no pretibial edema and no calf tenderness. No differential swelling of the upper extremities. Skin: Warm, dry and perfused. Without cyanosis or mottling, including that of the nail beds and knees. Neck: Supple. There is no jugular venous distention. No subcutaneous emphysema. Trachea is midline. Mouth: Shows her mucous membranes to be pink and moist. Lips and commissures are without lesions. She is intubated. I do not see any thrush. Eyes: Show her pupils to be equal and reactive. They are round, but pinpoint. I cannot tell if her extraocular motions are intact. Neurologic: Shows her to be completely sedated with the above observations by the nurses earlier this morning. The nurse says that when washing between her toes on the left side that she exhibited some motion of the left lower extremity. Last night, she was not exhibiting any motion of the left lower extremity. Psychiatric shows her to be completely sedated. Her white count today is 13.7 with hemoglobin and hematocrit of 12.3 and 35.7, unchanged postoperatively. Platelet count is 244 and differential shows 90% neutrophils, 3% lymphocytes and 5% monocytes. There are no immature forms and no toxic granulations. Her electrolytes show a sodium of 149 with potassium 3.8 and a chloride of 114. Glucose is 212. BUN and creatinine are 7 and 0.71. Her calcium is 7.9 with a corresponding albumin of 2.1. Ionized calcium last night was 4.6. Total bilirubin has increased to 1.9 and her AST and ALT are 55 and 50 with her AST being minimally elevated past the upper limit of normal of 37 for this institution. Amylase and lipase are normal at 20 and 142 respectively. Her chest x-ray today shows a white haze throughout the entire right lung consistent with both atelectasis from lung hypoventilation under one lung anesthesia last night and pulmonary hemorrhage. The lung is fully expanded to the chest wall and the mediastinum is within the midline. Costophrenic angles are sharp. Chest tubes are in good place. I see minimal subcutaneous emphysema. IMPRESSION: 1. Postoperative day #1 status post exploratory thoracotomy and extraction of pigtail catheter from right superior pulmonary vein and left atrium. 2. Empyema. 3. Right lower lobe pneumonia. 4. Hypertension. 5. Possible CVA. 6. Hypertension. PLAN AND DISCUSSION: I have discussed the case both with Dr. Goyal and Dr. Velázquez. Right now, we are trying to get her blood pressure under control before we decrease the sedation. There is a concern that she had at least a transient ischemic attack (TIA) and maybe a full CVA from hypotension after blood loss. The other possibility is air embolism from the catheter directly into the left atrium and pulmonary vein. Will have to await lifting sedation until we can fully evaluate her neurologic status. I have given her Lasix today to start her diuresis. Dr. Velázquez is going to start her on clonidine to control her blood pressure prior to decreasing the sedation. She is still on 60% FiO2 and that is not surprising given her x-ray findings of both atelectasis, lung compression, pneumonia and pulmonary hemorrhage.
--- NOTE | 2016-06-26 08:13 | REP ---
Clinical: Status post intubation and chest tube placement. Comparison: 06/25/2016. Findings: Two right apical chest tubes are in stable position. Endotracheal tube identified at the thoracic inlet. Nasogastric tube courses below left hemidiaphragm. The right hemithorax appears improved with decreased opacities. Linear plate-like atelectasis in the right mid lung zone however appears more prominent. The left hemithorax demonstrates stable basilar atelectasis. The cardiac silhouette is normal. No obvious pneumothorax. Impression: Linear plate-like atelectasis in the right mid lung zone slightly more prominent. Although overall improved aeration and decreased opacities involving the right hemithorax. Signed by Ata Schumacher MD 06/26/2016 08:04 A
[2016-06-26] MEDS: CHLORHEXIDINE GLUCONATE 0.12 % 15ML UDC (PERIDEX ORAL RINSE) MT SCH (08:49)
[2016-06-26] MEDS: DOCUSATE SODIUM 100 MG CAP PO SCH ×2 (08:50→19:27)
[2016-06-26] MEDS: cloNIDine 0.1 MG TAB PO SCH ×2 (08:50→20:14)
[2016-06-26] MEDS: amLODIPine 10 MG TAB PO SCH (08:51)
[2016-06-26] MEDS: PANTOPRAZOLE 40MG INJ (PROTONIX) (C9113) IV SCH (08:51)
[2016-06-26] MEDS: HEPARIN SOD (PORCINE) 5000 UNITS/ML VIAL SC SCH ×2 (08:51→20:14)
[2016-06-26] MEDS: LABETALOL 100 MG TAB PO SCH ×2 (09:00→20:15)
[2016-06-26] MEDS: MOM 30ML SUSPENSION UDC PO SCH (09:00)
[2016-06-26] MEDS ORDERED: FUROSEMIDE 40 MG/4 ML VIAL (J1940) IV ONE (10:00)
[2016-06-26 10:32] LABS: MAGNESIUM LEVEL 2.4 MG/DL (1.8-2.4)
--- NOTE | 2016-06-26 10:55 | CCN ---
DATE OF VISIT: 06/24/2016 NOTE: Ms. Hawk is a 55-year-old white female who was admitted on 06/20/2016 after having a several-day history of worsening abdominal and right flank pain. She had a urinalysis which was cloudy and positive for leukocyte esterase and too many to count WBCs with small amount of bacteria, and it was thought that she likely had a urinary tract infection (UTI). She had no fever, chills, or night sweats. She had no cough and no sputum production. No shortness of breath. She had started to complain of worsened right-sided chest pain, particularly with inspiration and was splinting. A repeat evaluation was done, and she was found to have a consolidated right lower lobe process with a small right-sided pleural effusion that was thought possibly an empyema. Radiology was contacted to place a pigtail. They actually placed two pigtails because of the loculation. On placing on the second of the two pigtails, there was a significant amount of blood return. She had lost consciousness and bradied down. She was felt to be apneic and was bagged. She always had a pulse and, in fact, her first blood pressure was 240 over around 118. This was confirmed by a manual cuff. On physical, she was very stiff, and we could not bend either of her lower extremities. She was unresponsive, and her pupils were dilated and nonresponsive. It was felt that she may have had some type of central nervous system (WELDER) event. The ICU was full and a monitored bed was needed immediately so she was moved from [facility] to an empty bay in the emergency department accompanied by ICU nurses and the code team. She began to move her right leg, but her left leg was still stiff. Her eyes then began deviating to the right. It was felt she may have been seizing and she was treated with Ativan. She was given labetalol because of her extreme high blood pressure. At this point, she was taken over for a head CT scan. Because of the blood that had been returned from the one chest tube, she also had a chest CT scan done. The initial chest x-ray did not show any specific pathology. Her head CT scan did not show any events, but her chest CT scan did show that the second chest tube appeared to be located in a vascular structure, most likely the pulmonary vein, but it was in the area of the pulmonary vein and pulmonary artery. She was then emergently taken to surgery, where the chest tube was found to be in the superior pulmonary vein extending into the left atrium. That was surgically removed and repaired by Dr. Calvin, who actually did a decortication at the same time; and then, she went to the recovery room, where I was again called because of her acute respiratory failure requiring mechanical ventilation postoperatively. Currently, she is synchronous with the ventilator. She is sedated. Her pupils are now 2-3 mm and responsive. She has had no further activity that appeared to be seizure-like. When in the operating room, she received 644 of fresh frozen plasma (FFP), 1750 of packed red blood cells, 2900 mL of lactated Ringer (LR), and 2700 mL of normal saline. Her urine output between the operating room (OR) and postanesthesia care unit (PACU) was 875, and her chest tube output was 25 mL. Estimated blood loss around 450 mL. However, she had significant blood loss before going to the operating room. OBJECTIVE: PHYSICAL EXAMINATION: General: Ms. Hawk is sedated and synchronous with the ventilator. Temperature 96, pulse 62, respiratory rate 20, blood pressure 152/77 with a mean arterial pressure (MAP) 97, SpO2 95% on FiO2 of 0.6. HEENT: Anicteric. Pupils 2-3 mm and reactive. There is significant orbital edema. Nares: patent bilateral. Moist mucosa. Oropharynx: endotracheal tube and orogastric (feeding) (OG) tube in place. Neck: Supple, without apparent jugular venous distention (JVD), thyromegaly, or masses. Trachea is midline. Lymph: Without cervical or supraclavicular lymphadenopathy. Chest: Normal shape. Lungs: Symmetric excursion. Good air entry on the left. No wheeze, rhonchi, or crackle. The right shows generalized diminished air entry with no specific wheeze, rhonchi, or crackle appreciated. Cardiovascular: Regular rate and rhythm with a normal S1, S2. No murmur, rub, or gallop appreciated. Abdomen: Diminished but present bowel sounds, soft, nondistended. No hepatosplenomegaly or masses appreciated. Extremities: Without clubbing, cyanosis, or edema. Strong pedal pulses bilaterally. Normal capillary refill. LABORATORY DATA: CBC: Most recent CBC showed a hemoglobin of 12.7, hematocrit 37.6, platelet count 239,000, and white blood cell count 14,700, with a differential of 92% neutrophils, 3% lymphocytes, and 3.5% monocytes. Electrolytes: Sodium 143, potassium 4.3, chloride 109, bicarbonate 27, BUN 7, creatinine 0.6, glucose 167, calcium 7.6, ionized calcium 4.6. Arterial blood gas was 7.34/45/71 with a measured saturation of 94% and a base excess of -1.9, and this was on pressure-regulated volume control (PRVC), with a tidal volume of 380, rate of 20, PEEP of 7, with an FiO2 of 0.6. I reviewed her chest x-ray postoperatively. The x-ray showed normal-appearing cardiac silhouette and pulmonary vascular shadows. Endotracheal tube (ET) tube in good position. There is a diffuse infiltrate on the right side. IMPRESSION: 1. Acute respiratory failure postoperatively, requiring mechanical ventilation. 2. Abnormal chest CT scan with right-sided infiltrate. I suspect this is predominantly pulmonary hemorrhage. She has a known right lower lobe pneumonia that may be a part of changes. 3. Right lower lobe pneumonia with complicated parapneumonic effusion versus empyema, status post decortication. 4. Postoperative day #0, status post repair of puncture of pulmonary vein. 5. Hypertension, at baseline (not treated as an outpatient on admission). RECOMMENDATIONS: 1. We will keep her sedated tonight. 2. We will ventilate her with a low tidal volume strategy. Her 6-7 mL per kilogram of predicted body weight tidal volume is 380. 3. We will make certain she has humidified air, as can anticipate there may be some mucus flooding/clots with pulmonary hemorrhage. 4. We will continue Zosyn for pneumonia. Hopefully, that can be narrowed soon. 5. Given her presentation, I agree with Dr. Calvin that we should keep her systolic blood pressure above 120 tonight. She is on propofol for sedation and would use a vasopressor if necessary. CRITICAL CARE TIME: 100 minutes, not including procedure time. DEBORAH
[2016-06-26] MEDS ORDERED: POTASSIUM PHOSPHATE INJ 18 MMOL in D5W 250 ML IV ONE (11:00)
[2016-06-26] MEDS ORDERED: cloNIDine 0.1 MG TAB PO ONE (11:30)
[2016-06-26] MEDS: PERCOCET 5MG/325MG TAB PO PRN ×4 (12:09→21:53)
--- NOTE | 2016-06-26 12:23 | IPN ---
DATE: 06/26/2016 This is now the second postoperative day for Mrs. Hawk after removal of a pigtail catheter from her left atrium and superior pulmonary. She is still sedated, although the nursing staff tell me that she is moving both extremities. They do perceive that the left side is weaker than the right side however. Her vital signs show a T-max of 99.4 with a heart rate that ranges between 79 and 94 in a sinus rhythm, a respiratory rate of 20 to 22 now on spontaneous pressure support ventilation. Her FiO2 is 40% with a PEEP of 7. Her blood pressure is ranging between 116/69 to 172/79. On those ventilator settings, she is 93% to 94% saturated. Her intake and output the past 24 hours has been recorded as 1905 in and 5000 out for a negativity of 3 liters. Her chest tube has put out 104 mL and there is no air leak. Weight is pending today. On physical examination, she has decreased breath sounds along the right side. I hear what are probable normal vesicular sounds on the left side. Percussion is not undertaken with her in the supine position. Cardiac Exam: Without murmurs, clicks, gallops, or rubs. I cannot feel her PMI. S1, S2 are normal. Abdomen: Bowel sounds are hypoactive at present. There is no hepatomegaly. Through her sedation, she is soft and nontender. Extremities: Show no pretibial edema and no calf tenderness. No differential swelling of the upper extremities. Skin: Warm, dry and perfused. Without cyanosis or mottling, including that of the nail beds and knees. Neck: Supple. There is no jugular venous distention. No subcutaneous emphysema. Trachea is midline. Mouth: Shows her mucous membranes to be pink and moist. Lips and commissures are without lesions. There is no thrush. She remains intubated. Eyes: Show her pupils to be equal and reactive, but still small. Neurologic: Shows her to be completely sedated. Psychiatric shows her to be completely sedated. Her white count today is 14.8, slightly up from 13.7 yesterday. Hemoglobin and hematocrit are 11.9 and 35.1, essentially unchanged postoperatively of 12.3 and 35.7. Platelet count is 289 and stable. Differential shows 80% neutrophils, 11% lymphocytes and 5% monocytes. There are no immature forms and no toxic granulations. Her sodium is down to 147 from 149 yesterday. Potassium is 3.8. Her BUN and creatinine are 15 and 0.67 with a glucose of 123. Calcium is 7.8 with a corresponding albumin of 2.0. Phosphorus is 2.2, slightly below the lower limits of normal of 2.4. Magnesium is 2.5. Liver functions are normalizing with no an AST and ALT of 43 and 53 respectively and a total bilirubin down to 0.9. Her blood gases this morning are still pending. Her chest x-ray again done portably shows the lungs fully expanded to the chest wall. There is more aeration of the right lung today than there was yesterday. There is some mild blunting of the right costophrenic angle. Mediastinum is in the midline. Chest tubes are in good place as is the endotracheal tube. IMPRESSION: 1. Postoperative day #3 status post exploratory thoracotomy and extraction of pigtail catheter from right superior pulmonary vein and left atrium. 2. Empyema. 3. Right lower lobe pneumonia. 4. Hypertension. 5. Possible CVA. 6. Mild hypernatremia. PLAN AND DISCUSSION: Dr. Velázquez is going to try and awaken her today and maybe try to extubate her. Once we let her sedation up, we will be able to more accurately assess her neurologic status. 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 I did place long acting Exparel as a rib block at surgery and that should be of some help. She continues on antibiotics consisting of Zosyn.
[2016-06-26] MEDS ORDERED: LABETALOL HCL 100 MG/20 ML VIAL IV STA (12:29)
[2016-06-27] VITALS (21 sets, daily range): BP systolic 114–222; BP diastolic 16–107; O2SAT 92–95
[2016-06-27] MEDS: PIPERACILLIN/TAZOBACTAM SOD 3.375 GM in D5W MINI-BAG PLUS 50 ML IV SCH ×4 (00:12→17:37)
[2016-06-27] MEDS: ALBUTEROL SULFATE 2.5 MG/0.5 ML INH NEB SOLN NEB SCH ×6 (00:55→21:13)
[2016-06-27] MEDS: MORPHINE 2 MG/ML 1ML SYRINGE IV PRN ×2 (02:15→06:04)
[2016-06-27] MEDS: PERCOCET 5MG/325MG TAB PO PRN ×3 (02:16→11:58)
[2016-06-27 04:43] LABS: BASO % 0.2 % (0.0-1.0); EOS # 0.2 K/mm3 (0.0-0.50); EOS % 1.3 % (0.0-3.0); LARGE UNSTAINED CELL # 0.1 K/mm3 (0.0-0.4); LARGE UNSTAINED CELL % 0.7 % (0.0-4.0); LYMPH # 1.3 K/mm3 (1.5-4.5); LYMPH % 6.2 % (24.0-44.0); MEAN CORPUSCULAR HGB CONC 33.6 g/dl (32.0-36.5); MEAN CORPUSCULAR VOLUME 89.5 fl (80.0-96.0); MONO # 0.7 K/mm3 (0.0-0.8); MONO % 3.9 % (0.0-5.0); NEUTROPHILS # 16.4 K/mm3 (1.8-7.7); NEUTROPHILS % 87.8 % (36.0-66.0); PLATELET COUNT, AUTOMATED 328 k/mm3 (150-450); RED CELL DISTRIBUTION WIDTH 13.4 % (11.5-14.5); WHITE BLOOD COUNT 18.7 K/mm3 (4.0-10.0)
[2016-06-27 05:14] LABS: ALBUMIN 2.1 GM/DL (3.2-5.2); ALBUMIN/GLOBULIN RATIO 0.57 (1.00-1.93); ALKALINE PHOSPHATASE 178 U/L (45-117); ALT/SGPT 49 U/L (12-78); ANION GAP 10 MEQ/L (8-16); AST/SGOT 40 U/L (15-37); BLOOD UREA NITROGEN 16 MG/DL (7-18); CALCIUM LEVEL 8.2 MG/DL (8.5-10.1); CARBON DIOXIDE LEVEL 29 MEQ/L (21-32); CHLORIDE LEVEL 106 MEQ/L (98-107); CHOLESTEROL LEVEL 170 MG/DL (< 200); GLOMERULAR FILTRATION RATE > 60.0 (>51); GLUCOSE, FASTING 102 MG/DL (70-105); PHOSPHORUS LEVEL 3.7 MG/DL (2.5-4.9); SODIUM LEVEL 145 MEQ/L (136-145); TOTAL PROTEIN 5.8 GM/DL (6.4-8.2); TRIGLYCERIDES LEVEL 395 MG/DL (<150)
[2016-06-27 05:45] LABS: BILIRUBIN,TOTAL 1.6 MG/DL (0.2-1.0)
[2016-06-27] MEDS: SLF 3 ML SYR IV SCH ×3 (06:05→21:30)
[2016-06-27] MEDS: LABETALOL 100 MG TAB PO SCH ×2 (06:06→21:29)
[2016-06-27] MEDS: cloNIDine 0.1 MG TAB PO SCH ×2 (06:07→21:30)
[2016-06-27] MEDS: DOCUSATE SODIUM 100 MG CAP PO SCH ×2 (08:56→21:30)
[2016-06-27] MEDS: amLODIPine 10 MG TAB PO SCH (08:57)
[2016-06-27] MEDS: MOM 30ML SUSPENSION UDC PO SCH (08:58)
[2016-06-27] MEDS: PANTOPRAZOLE 40MG INJ (PROTONIX) (C9113) IV SCH (08:58)
[2016-06-27] MEDS: HEPARIN SOD (PORCINE) 5000 UNITS/ML VIAL SC SCH ×2 (08:58→21:29)
--- NOTE | 2016-06-27 09:26 | REP ---
Clinical: Postop thoracotomy. Comparison: 06/26/2016. Findings: Two right apical chest tubes in stable position. Diffuse right-sided pleuroparenchymal changes including pleural effusion and scattered infiltrates/atelectasis are again identified and without significant change. Left lower lobe atelectasis remains relatively stable. No obvious pneumothorax. Cardiac silhouette is normal. Nasogastric tube courses below the left hemidiaphragm. Skeletal structures intact. Impression: Right-sided pleuroparenchymal changes and left lower lobe atelectasis similar to prior examination. No obvious pneumothorax. Signed by Ata Schumacher MD 06/27/2016 08:55 A
--- NOTE | 2016-06-27 09:33 | CCN ---
DATE: 06/25/2016 NOTE: Ms. Hawk remains critically ill with acute hypoxemic respiratory failure postoperatively. She remained hypertensive overnight but at her probable baseline level (she reports a systolic of around 150 at home) on propofol. This morning, on her sedation vacation, she was seen to move her right arm and leg spontaneously and appeared irritated when her toes were touched on the left. It is not clear as to whether there may have been some slight movement in the left upper extremity. She stayed on her sedation holiday for about 20 minutes, but then was restarted because of increasing blood pressure. When her systolic pressure reached around 190, the holiday was terminated. She responded well to a dosage of Lasix this morning. She continues to have evidence on her chest x-ray of pulmonary hemorrhage. OBJECTIVE: PHYSICAL EXAMINATION: GENERAL: Ms. Hawk is laying in bed, in no acute distress. She is synchronous with the ventilator. VITAL SIGNS: Temperature 98.9 with a maximum temperature (Tmax) of 98.9, pulse 94, respiratory rate 20, blood pressure 149/76, SpO2 96% on FiO2 of 0.5. HEENT: Anicteric. Pupils equal, round, and reactive to light and about 3 mm and reactive. The eyes are slightly misaligned but not deviated. Nares: Patent bilaterally, moist mucosa. Oropharynx: Clear, no lesions apparent, endotracheal (ET) tube and orogastric (OT) tube in place. NECK: Supple, without thyromegaly or masses, trachea is midline. LYMPHATICS: Without cervical or supraclavicular lymphadenopathy. LUNGS: Symmetric excursion, good air entry with diminished breath sounds at the right base. No significant rhonchi, crackle, or wheezes. Normal I:E. No accessory muscle usage or retractions. CARDIOVASCULAR: Regular rate and rhythm with a normal S1, S2, no murmur, rub, or gallop appreciated. ABDOMEN: Rare bowel sounds, soft, nondistended, no hepatosplenomegaly or masses appreciated. EXTREMITIES: Warm and well perfused, normal capillary refill. Palpable pedal pulses bilaterally. There is generalized edema but less edema in areas such as her orbital regions. LABORATORY DATA: CBC showed a hemoglobin of 12.3, hematocrit 35.7, platelet count 244,000, white blood cell count 13,700 with a differential of 90% neutrophils, 3.4% lymphocytes , and 5.2% monocytes. Chemistry showed sodium 149, potassium 3.8, chloride 114, bicarbonate 26, anion gap 9, BUN 7, creatinine 0.71, glucose 212, lactic acid 1.6, calcium 7.9, phosphorous 2.3, magnesium 1.9, AST 55, ALT 60, alkaline phosphatase 164, LDL 283, CK 394, total protein 4.9, albumin 2.1, amylase 20, lipase 142. Arterial blood gas this morning on pressure-regulated volume control (PRVC), tidal volume 3, rate of 20, PEEP of 5, was 7.402/43/88 with a measured saturation of 97% and a base excess of 1.4. I reviewed her chest x-ray as well as her report from earlier today. That x-ray showed normal appearing cardiac silhouette and pulmonary vascular shadows. There is generalized haziness of the right lung that perhaps has slight improvement. ET tube is in good position. Yesterday intake and output were 9201 in and 2380 out, making her positive 6821. Thus far today, 1173 in and 4377 out, making her negative 3204. IMPRESSION: 1. Acute hypoxemic respiratory failure postoperatively. 2. Right lower lobe pneumonia with parapneumonic effusion, either empyema or complicated. 3. Postoperative day #1 status post repair of right pulmonary vein. 4. Hypertension. 5. Seizure post acute event. No evidence of seizure activity since that time. 6. Deep venous thrombosis (DVT) and stress ulcer prophylaxis in place. 7. Infectious disease: On Zosyn. RECOMMENDATIONS: 1. Will continue with supportive care. 2. Will decrease the respiratory rate so that ideally she is breathing two to four breaths above the set rate to set her own pH. 3. Will place a right arterial line. I have chosen the right arm because we want to be able to closely monitor the left arm for movement. 4. Will start long-acting antihypertensive. Hopefully we will be able to keep her on a more prolonged propofol holiday tomorrow to really assess her ability to follow commands. 5. Will discontinue the femoral triple lumen catheter (TLC) as she has very good access with two 16-gauge IVs and another IV in her hand. 6. Will start tube feeds tomorrow if she is not extubatable. Critical care time 65 minutes, not including procedure time. DEBORAH
--- NOTE | 2016-06-27 10:21 | RO ---
DATE OF PROCEDURE: 06/24/2016 PREPROCEDURE DIAGNOSIS: Foreign body of pulmonary vein. POSTPROCEDURE DIAGNOSES: Foreign body superior pulmonary vein, empyema. PROCEDURE: Exploratory thoracotomy, removal of foreign body from superior pulmonary vein, venotomy with removal of catheter, decortication and five level rib block. SURGEON: Dr. Russ Calvin MILL SET UP: Dr. Samir Ruiz ANESTHESIA: ESTIMATED BLOOD LOSS: FINDINGS: The pigtail catheter was found within the superior pulmonary vein. After isolating both the inferior pulmonary vein and the superior pulmonary vein and locating where the catheter was, the catheter was removed by venotomy in the superior pulmonary vein after gaining proximal distal control. Patient was also found to have a pleural peel consistent with an empyema with consolidation of the right lower lobe. Dr. Ruiz assisted in the operation by providing retraction and exposure for the great vessels so the operation could be done in a safe manner. PROCEDURE: Under satisfactory general anesthesia and after placing a femoral arterial line and a femoral central line and positioning the double lumen tube in the proper bronchus, patient was turned to the left lateral decubitus position and prepped and draped in the usual sterile fashion. A posterior lateral incision was made and the chest was entered through the fifth intercostal space. Latissimus dorsi and portions of the serratus were taken in order to provide the maximum amount exposure. The pigtail catheter which was within the pulmonary vein was not removed until we got into the chest. After taking down numerous adhesions from the lung which was found to be quite inflamed secondary to her empyema, the inferior pulmonary ligament was taken down in order to expose the inferior surface of the inferior pulmonary vein. The inferior pulmonary vein was dissected and then surrounded with a vessel loop. Careful palpation of the inferior pulmonary vein did not reveal the catheter. Likewise, the superior pulmonary vein was dissected free of the underlying pulmonary artery and bronchus. This was a very tedious dissection. The catheter had been cut off at the chest wall once getting into the chest. Inadvertently, it pulled through the parenchyma. That therefore forced our hand to remove it via the pulmonary vein. All the branches of the superior pulmonary vein were surrounded eventually Domingo tourniquets and a spoon-shaped Satinsky clamp was placed on the pulmonary vein hilum. The phrenic nerve was identified and assiduously preserved. This dissection was no mean feat given the inflammation and scarring. Nonetheless it was accomplished. The pigtail catheter was found within the superior pulmonary vein in what I think was probably the posterior segmental vein. The main superior pulmonary vein was clamped at the hilum at its entrance into the left atrium. All the branches were then occluded with Domingo tourniquets. After gaining complete distal and proximal control, the superior pulmonary vein was opened in a linear fashion. The catheter could be found in the pulmonary vein and its proximal end was pulled out first. There was a gush of blood and the Domingo tourniquet was tightened more securely. The curled end of the pigtail catheter was within the left atrium and therefore, the Satinsky clamp had to be released and the catheter pulled out. There was gush of blood from the left atrium but there was no air sucked into the left atrium. The vein was then closed with running #5-0 Prolene suture. It was deaired and the distal clamps released and then the proximal clamps released. The venotomy was found to be hemostatic. The integrity of the esophagus was checked as when I was taking down the pulmonary ligament, I was concerned that I had skived the esophageal serosa. The serosa was found to be completely intact. An NG tube had been placed so I could follow the course of the esophagus. Two chest tubes were placed, one posteriorly and one anteriorly, both #28 tubes. Five level rib block was accomplished with 0.5% Marcaine and Exparel. The venotomy was covered with Tisseel glue. Pericostal were placed in [id number] fashion. The lung was reinflated. Prior to reinflation of the lung, she was noted to have a very thick peel on the lower lobe and this was then removed piecemeal as a decortication. After inflating the lung, it came out to the chest wall. The decortication was accomplished by gently prying the peel off the lung with a peanut. The extrathoracic muscles were closed with running #0 Vicryl suture, the subcutaneous tissue closed with running #3-0 Vicryl suture and the skin closed with running #3-0 Monocryl subcuticular suture. The patient tolerated the procedure well and left the operating room in satisfactory condition and went to the recovery room, intubated.
--- NOTE | 2016-06-27 12:41 | RO ---
DATE OF PROCEDURE: 06/25/2016 PREOPERATIVE DIAGNOSIS: Hypertension and need to closely monitor blood pressure. POSTOPERATIVE DIAGNOSIS: Hypertension and need to closely monitor blood pressure. 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 [place] procedure followed. Following that, the right wrist was prepped and draped in a sterile fashion. The right radial artery was cannulated on the third attempt. The wire fed easily. The radial catheter was placed by the modified Seldinger technique. Good waveform. Tolerated well. MTDD
[2016-06-27] MEDS ORDERED: fentaNYL 100 MCG/2 ML INJECTION (J3010) As Ordered ONE (12:50)
[2016-06-27] MEDS ORDERED: MIDAZOLAM INJ 2 MG/2 ML VIAL (J2250) As Ordered ONE (12:50)
[2016-06-27] MEDS ORDERED: FENTANYL 2MCG/ML BUPIVACAINE 0.0625% NACL 250ML CADD As Ordered ONE (12:56)
[2016-06-27] MEDS ORDERED: LABETALOL 100 MG TAB PO ONE (13:00)
--- NOTE | 2016-06-27 13:32 | REP ---
Clinical: Cardiac arrest. Comparison: 06/23/2016. Findings: Mediastinum and cardiac silhouette are stable. Continued evidence for bilateral pleuroparenchymal changes (right greater than left) including right hydropneumothorax. Two pigtail catheters overlie the right mid to lower lung zone. Skeletal structures intact. Impression: Continued pleuroparenchymal changes including right hydropneumothorax. Two pigtail catheters overlie the right hemithorax. Signed by Ata Schumacher MD 06/27/2016 01:23 P
[2016-06-27] MEDS: FENTANYL/BUPIVACAINE/NACL CADD 250 ML EPIDURAL SCH (13:45)
[2016-06-27] MEDS ORDERED: WALLBOXKEY XX PRN (14:30)
[2016-06-27] MEDS ORDERED: METOCLOPRAMIDE INJ 10MG/2ML VIAL (J2765) IV PRN (14:30)
[2016-06-27] MEDS ORDERED: diphenhydrAMINE INJ 50MG/ML VIAL (J1200) IV PRN (14:30)
[2016-06-27] MEDS ORDERED: EPIDURAL/PCA KEYS XX PRN (14:30)
[2016-06-27] MEDS ORDERED: fentaNYL 100 MCG/2 ML INJECTION (J3010) IV ONE (14:30)
[2016-06-27] MEDS ORDERED: ONDANSETRON 4MG/2ML VIAL (J2405) IV PRN (14:30)
[2016-06-27] MEDS ORDERED: NALOXONE INJ 0.4 MG/1 ML VIAL (J2310) IV PRN (14:30)
--- NOTE | 2016-06-27 16:30 | CCN ---
DATE: 06/26/2016 NOTE: Ms. Hawk remains critically ill with acute respiratory failure postoperatively. This morning she was on the ventilator. Her propofol was discontinued and she was changed to a weaning trial. After being at bedside monitoring her for close to two hours after discontinuing propofol, she finally was able to follow some commands. She was awake much sooner, but would not do anything more purposeful than moving her right arm toward the endotracheal tube. Eventually she woke up enough where she was following commands, and we felt it reasonable to proceed with extubation. After extubation, she indicates some discomfort at her surgical site, but otherwise denies shortness of breath. She has a cough and she had a good cough on the ventilator, but it is difficult to try to get her to cough effectively. She has expectorated some material since extubation. PHYSICAL EXAMINATION: GENERAL: Ms. Hawk originally was lying in bed synchronous with the ventilator. Subsequent to that, she is lying in bed appearing comfortable with an aerosolized mask in place. VITAL SIGNS: Temperature 99.3, with a temperature maximum (T-max) of 99.4, respiratory rate 24, blood pressure 134/66, pulse 108, SpO2 93% on an aerosol mask is 0.6. HEENT: Anicteric, Pupils equal, round, and reactive to light, but disconjugate pupils. Nares patent with a right nasogastric (NG) tube in place. Moist mucosa. Oropharynx originally had an endotracheal (ET) tube in place, and now is clear with moist mucosa. NECK: Supple, without jugular venous distention (JVD), thyromegaly or masses. Trachea is midline. LYMPHATIC: No cervical or supraclavicular lymphadenopathy. LUNGS: Symmetric excursion, good air entry, decreased breath sounds at the right base. No significant crackles or rhonchi. Normal I to E. CARDIOVASCULAR: Tachycardic, regular rhythm, normal S1, S2, no murmur, rub, or gallop appreciated. ABDOMEN: Positive bowel sounds. Soft, nondistended. No hepatosplenomegaly or masses appreciated. EXTREMITIES: Warm and well perfused, without clubbing or cyanosis. There is decreased overall edema. NEUROLOGIC: She will turn her head towards you and speaks in single words. She appears to be able to move her right leg and arm normally, and she can squeeze her hand on the right and wiggle her toes on the right. On the left side, she moves both extremities, but they appear weaker than on the right. I could not get her to squeeze my hand on the left or wiggle her toes on the left. LABORATORY DATA: CBC showed a hemoglobin 11.9, hematocrit of 35.1, platelet count 289,000, white blood cell count 14,800 with the differential of 81% neutrophils, 11% lymphocytes, 6% monocytes. Chemistry showed sodium 147, potassium 3.6, chloride 109, bicarbonate 30, anion gap 8, BUN 15, creatinine 0.67, glucose 123, calcium 7.8, phosphorus 2.2, magnesium 2.5, total bilirubin 0.9, AST 43, ALT 53, alkaline phosphatase 148. CK 638, total protein 5, albumin 2.0. I reviewed her chest x-ray as well as the report. That x-ray showed the left side was clear. The right side had improved aeration, but still opacity at the right base and plate-like atelectasis in the mid zone. ET tube is in good place. Yesterday's intake and output showed 1906 in and 5004 out, making her negative 3098. Thus far today is 606 in and 3044 out, making her negative 2438. Her chest tube output was 6 mL thus far today, and 104 mL yesterday. IMPRESSION: 1. Acute respiratory failure postoperatively. 2. Abnormal chest x-ray with hemorrhage on the right, as well as a right lower lobe pneumic process. 3. Postoperative day two, status post repair of the right pulmonary vein. 4. Right lower lobe pneumonia with associated empyema/complicated pleural effusion. 5. Hypertension at baseline. RECOMMENDATIONS: 1. Ms. Hawk was placed on a very prolonged weaning trial this morning, allowing her to fully awaken. On a trial of pressure support of 5 and a PEEP of 5, her rapid shallow breathing index was around 67 and she was moving good air. After she awoke, she was successfully extubated. 2. Will institute aggressive hyperinflation therapy to encourage her to cough. She is at risk for retained secretions on the right side that need to be expectorated. 3. Will consult physical therapy (PT) and occupational therapy (OT) to see her tomorrow to start therapy. 4. Chest tube management per Dr. Calvin. 5. We will need to increase mobilization. 6. Continue on Zosyn and vancomycin for her right lower lobe pneumonia. Cultures have all been negative. 7. In regards to her hypertension, she has longstanding hypertension and we will try to slowly gain better control. I would like to keep her systolic pressure ideally between 140 and 160. I will change her agents to labetalol and will keep her on amlodipine. We will wean the clonidine to off over the next several days. Prognosis remains guarded. CRITICAL CARE TIME: 190 minutes, not including procedure time. SAULD
[2016-06-27] MEDS: **hydrALAZINE** 50 MG TAB PO SCH (18:00)
[2016-06-28] VITALS (23 sets, daily range): BP systolic 105–200; BP diastolic 60–110; O2SAT 94–96
[2016-06-28] MEDS: PIPERACILLIN/TAZOBACTAM SOD 3.375 GM in D5W MINI-BAG PLUS 50 ML IV SCH ×4 (00:52→17:39)
[2016-06-28] MEDS: ALBUTEROL SULFATE 2.5 MG/0.5 ML INH NEB SOLN NEB SCH ×7 (01:10→23:47)
[2016-06-28] MEDS: SLF 3 ML SYR IV SCH ×3 (05:10→20:18)
[2016-06-28] MEDS: **hydrALAZINE** 50 MG TAB PO SCH ×4 (05:10→18:00)
[2016-06-28 05:11] LABS: BASO % 0.3 % (0.0-1.0); EOS # 0.2 K/mm3 (0.0-0.50); EOS % 1.1 % (0.0-3.0); LARGE UNSTAINED CELL # 0.1 K/mm3 (0.0-0.4); LARGE UNSTAINED CELL % 0.7 % (0.0-4.0); LYMPH # 1.7 K/mm3 (1.5-4.5); LYMPH % 8.7 % (24.0-44.0); MEAN CORPUSCULAR HEMOGLOBIN 30.1 pg (27.0-33.0); MEAN CORPUSCULAR HGB CONC 33.6 g/dl (32.0-36.5); MEAN CORPUSCULAR VOLUME 89.5 fl (80.0-96.0); MONO # 0.9 K/mm3 (0.0-0.8); MONO % 4.9 % (0.0-5.0); NEUTROPHILS % 84.3 % (36.0-66.0); PLATELET COUNT, AUTOMATED 385 k/mm3 (150-450); RED CELL DISTRIBUTION WIDTH 13.1 % (11.5-14.5); WHITE BLOOD COUNT 17.8 K/mm3 (4.0-10.0)
[2016-06-28 05:37] LABS: ALBUMIN/GLOBULIN RATIO 0.45 (1.00-1.93); ALKALINE PHOSPHATASE 178 U/L (45-117); ALT/SGPT 38 U/L (12-78); ANION GAP 6 MEQ/L (8-16); AST/SGOT 27 U/L (15-37); BILIRUBIN,TOTAL 1.1 MG/DL (0.2-1.0); BLOOD UREA NITROGEN 24 MG/DL (7-18); CALCIUM LEVEL 8.6 MG/DL (8.5-10.1); CARBON DIOXIDE LEVEL 32 MEQ/L (21-32); CHLORIDE LEVEL 106 MEQ/L (98-107); CHOLESTEROL LEVEL 184 MG/DL (< 200); CREATININE FOR GFR 0.62 MG/DL (0.55-1.02); GLOMERULAR FILTRATION RATE > 60.0 (>51); GLUCOSE, FASTING 109 MG/DL (70-105); PHOSPHORUS LEVEL 2.8 MG/DL (2.5-4.9); POTASSIUM SERUM 3.5 MEQ/L (3.5-5.1); SODIUM LEVEL 144 MEQ/L (136-145); TOTAL PROTEIN 6.4 GM/DL (6.4-8.2); TRIGLYCERIDES LEVEL 355 MG/DL (<150)
--- NOTE | 2016-06-28 07:57 | IPN ---
DATE: 06/27/2016 This is now the third postoperative day for Mrs. Hawk. She was extubated yesterday. She is awake and alert, although a little bit groggy. Her pain looks to be fairly well controlled with a lot of narcotic analgesia. I will therefore ask anesthesia now to place an epidural so that we can wean her off the narcotic analgesia. She is moving all extremities. This afternoon, when I tested her formerly, she had equal applications scientist in right and left arms. Her vital signs show a maximum temperature (Tmax) of 98.9 with a heart rate that ranges between 88-100 in a sinus rhythm, respiratory rate of 16-20 without the use of accessory muscles, who is 98-96% saturated on 2 liters nasal cannula. Her blood pressure is ranging between 222/103 to 142/79. Her blood pressure is being actively treated by Dr. Velázquez. Her intake and output the past 24 hours has been recorded as 986 in and 5000 out for a negativity of 4000 mL. We have now almost caught up with her and I will not diurese her today. Her weight today is 63 kg. Her preprocedure weight was 65.7 kg. Her chest tube has put out 156 mL and there is no air leak. On physical examination, she has equal breath sounds on either side. Percussion is full to the diaphragm. I hear some faint crackles, but essentially she has normal vesicular sounds on both sides. Cardiac exam is without murmurs, clicks, gallops, or rubs. I cannot feel her point of maximum impulse (PMI). S1, S2 are normal. Abdomen is soft, nontender. Bowel sounds are positive. There is no hepatomegaly. No costovertebral angle (CVA) tenderness. Extremities show 1+ pretibial edema along with ankle edema. There is no calf tenderness. No differential swelling of the upper extremities. Both hands are however swollen. Neck is supple. There is no jugular venous distention. No subcutaneous emphysema. Trachea is midline. Skin is warm, dry and perfused. Without cyanosis or mottling, including that of the nail beds and knees. Mouth is pink and moist. Lips and commissures are without lesions. There is no thrush. Eyes show her pupils to be equal and reactive. Extraocular movements are intact. Sclerae nonicteric. Neurologic shows II-XII intact along with gross motor and gross sensation intact. Gait is not tested. Psychiatric shows her to be awake and alert, but quite somnolent. Her white count today is 18.7, up from 14.8 yesterday. Hemoglobin and hematocrit are 13.4 and 39.9, respectively with a platelet count of 328. Differential shows 87% neutrophils, 6% lymphocytes, 3% monocytes. There are no immature forms. No toxic granulations. Electrolytes are normal with a BUN and creatinine of 16 and 0.5. Calcium is 8.2 with a corresponding albumin of 2.1. Glucose is 102. Bilirubin is 1.6, probably secondary to hemolysis from the massive blood transfusions. Her chest x-ray today shows the lung fully expanded to the chest wall. It is done PA, lateral today. Chest tubes are in good place and costophrenic angles are sharp. There is still atelectasis and/or pulmonary hemorrhage in the lower lobe on the right side. I see no infiltrates. IMPRESSION: 1. Postoperative day #3 status post removal of pigtail catheter from superior pulmonary vein and left atrium. 2. Empyema. 3. Right lower lobe pneumonia. 4. Hypertension. 5. 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 6. Hypernatremia, resolved. PLAN AND DISCUSSION: I will not diurese her today. She looks to be neurologically recovering. Cultures are all negative with no growth aerobic or anaerobically. Pathology is still pending on the decorticated rind that I sent during the procedure. Her blood pressure is actively being treated. She remains on piperacillin as antibiotics.
[2016-06-28] MEDS: MOM 30ML SUSPENSION UDC PO SCH (09:17)
[2016-06-28] MEDS: amLODIPine 10 MG TAB PO SCH (09:17)
[2016-06-28] MEDS: LABETALOL 100 MG TAB PO SCH ×2 (09:17→20:17)
[2016-06-28] MEDS: HEPARIN SOD (PORCINE) 5000 UNITS/ML VIAL SC SCH ×2 (09:18→20:18)
[2016-06-28] MEDS: PANTOPRAZOLE 40MG INJ (PROTONIX) (C9113) IV SCH (09:18)
[2016-06-28] MEDS: DOCUSATE SODIUM 100 MG CAP PO SCH ×2 (09:18→20:16)
[2016-06-28] MEDS: cloNIDine 0.1 MG TAB PO SCH ×2 (09:18→20:17)
[2016-06-28] MEDS ORDERED: FUROSEMIDE 40 MG/4 ML VIAL (J1940) IV ONE (09:45)
--- NOTE | 2016-06-28 09:50 | REP ---
Clinical: Recent thoracotomy and chest tube placement. Technique: PA and lateral. Comparison: 06/27/2016. Findings: Two right apical chest tubes in stable position. Visualized mediastinum and cardiac silhouette normal/stable. Right-sided pleuroparenchymal changes may be slightly improved when compared to prior examination. Left lower lobe/retrocardiac atelectasis again identified. Impression: Improved aeration and improved appearance to the pleuroparenchymal changes primarily involving the right hemithorax and left retrocardiac region. Signed by Ata Schumacher MD 06/28/2016 09:42 A
[2016-06-28] MEDS: POTASSIUM CHLORIDE 10 MEQ SR TABLET PO SCH ×2 (11:10→20:17)
[2016-06-28] MEDS: FENTANYL/BUPIVACAINE/NACL CADD 250 ML EPIDURAL SCH (12:24)
--- NOTE | 2016-06-28 16:47 | IPN ---
DATE: 06/28/2016 This is now the fourth postoperative day for Ms. Hawk. She is extubated, awake and alert. She still seems a bit on the confused side, although she knows where she is. It is just a different affect that she has, as if she is not completely with us. She still has some residual weakness in her left upper extremity, but that, too, is getting better. Her vital signs show a maximum temperature (T max) of 99.6 with a heart rate that ranges between 82 and 84 and is sinus rhythm, a blood pressure that ranges now between 200/100 to 109/60. Respiratory rate is 16-20 without the use of accessory muscles, and she is 91-96% saturated on 4 liters nasal cannula. Her intake and output the past 24 hours has been recorded as 760 in and 1565 out for a negativity of 800 mL. She has put 225 mL out the chest tube, and she weighs 63.1 kg today compared to 63 kg yesterday. There is no air leak. PHYSICAL EXAMINATION: On physical examination, she has equal breath sounds on either side, but she has some coarse rhonchi and crackles on the right side. Percussion note is full to the diaphragm. Cardiac exam is without murmurs, clicks, gallops or rubs. I cannot feel her point of maximum impulse (PMI). S1, S2 are normal. Abdomen is soft and nontender. Bowel sounds are positive. There is no hepatomegaly. No costovertebral angle tenderness. Extremities show no edema. No calf tenderness. No differential swelling of the upper extremities. Skin is warm, dry and perfused without cyanosis or mottling, including that of the nail beds and the knees. Neck is supple. There is no jugular venous distention, no subcutaneous emphysema. Trachea is midline. Mouth shows her mucous membranes to be pink and moist. Lips and commissures without lesions. There is no thrush. Eyes show her pupils to be equal and reactive. Extraocular motions intact. Sclerae anicteric. It looks as though she has some dysconjugate gaze, although she does not complain of any double vision. Her extraocular motions are intact. Her visual acuity is sufficient that each eye can recognize the number of fingers I hold up. Neurologic shows II-XII intact along with gross motor and gross sensation intact with slightly weaker handgrip on the left arm. She has equal strength in her lower extremities, but they are still quite weak. She was able to transfer to a chair and bear weight, but has not walked around yet. Psychiatric shows her to be awake but slightly somnolent with a cooperative but flattened affect. She is oriented times three. Her white count today is 17.8 down from 18.7 yesterday. Hemoglobin and hematocrit is 13.3 and 39.6 with a platelet count 385, which is stable. Differential shows 84% neutrophils, 8% lymphocytes and 4% monocytes. There are no immature forms. No toxic granulations. Her electrolytes are normal with a marginally low potassium of 3.5. BUN and creatinine are 24 and 0.62 with a glucose of 109. Calcium is 8.6 with a total bilirubin of 1.1. Albumin is 2.0. All microbiology has been negative from surgery. Pathology on the pleural rind is still pending. Her chest x-ray today shows the lung fully expanded to the chest wall. She has still diffuse haze throughout the right hemithorax consistent with atelectasis, compression and a right lower lobe pneumonia in the right lower lobe. Her right diaphragm looks a little bit high. If that persists, we will undertake a sniff test when she gets better. IMPRESSION: 1. Postoperative day #4 status post removal of pigtail catheter from superior pulmonary vein and left atrium. 2. Empyema. 3. Right lower lobe pneumonia. 4. Hypertension. 5. Possible cerebrovascular accident or at least a reversible ischemic neurologic deficit (RIND), improving. 6. Hypernatremia, resolved. PLAN AND DISCUSSION: We will feed her today with a regular diet. I will diurese her one more time today. Will correct her hypokalemia. Diuresis may help control her hypertension additionally.
[2016-06-29] VITALS (8 sets, daily range): BP systolic 109–131; BP diastolic 60–80
[2016-06-29] MEDS: PIPERACILLIN/TAZOBACTAM SOD 3.375 GM in D5W MINI-BAG PLUS 50 ML IV SCH ×4 (00:47→17:12)
[2016-06-29] MEDS: ALBUTEROL SULFATE 2.5 MG/0.5 ML INH NEB SOLN NEB SCH ×5 (03:13→21:57)
[2016-06-29 05:20] LABS: BASO % 0.3 % (0.0-1.0); EOS # 0.3 K/mm3 (0.0-0.50); EOS % 2.2 % (0.0-3.0); LARGE UNSTAINED CELL # 0.1 K/mm3 (0.0-0.4); LARGE UNSTAINED CELL % 0.9 % (0.0-4.0); LYMPH # 1.6 K/mm3 (1.5-4.5); LYMPH % 10.5 % (24.0-44.0); MEAN CORPUSCULAR HEMOGLOBIN 30.5 pg (27.0-33.0); MEAN CORPUSCULAR HGB CONC 33.5 g/dl (32.0-36.5); MEAN CORPUSCULAR VOLUME 90.9 fl (80.0-96.0); MONO # 0.5 K/mm3 (0.0-0.8); MONO % 3.7 % (0.0-5.0); NEUTROPHILS # 11.3 K/mm3 (1.8-7.7); NEUTROPHILS % 82.3 % (36.0-66.0); PLATELET COUNT, AUTOMATED 407 k/mm3 (150-450); WHITE BLOOD COUNT 13.7 K/mm3 (4.0-10.0)
[2016-06-29 05:39] LABS: ALBUMIN/GLOBULIN RATIO 0.48 (1.00-1.93); ALKALINE PHOSPHATASE 172 U/L (45-117); ALT/SGPT 34 U/L (12-78); ANION GAP 8 MEQ/L (8-16); AST/SGOT 24 U/L (15-37); BILIRUBIN,TOTAL 0.8 MG/DL (0.2-1.0); BLOOD UREA NITROGEN 23 MG/DL (7-18); CALCIUM LEVEL 8.4 MG/DL (8.5-10.1); CARBON DIOXIDE LEVEL 29 MEQ/L (21-32); CHLORIDE LEVEL 108 MEQ/L (98-107); CHOLESTEROL LEVEL 184 MG/DL (< 200); CREATININE FOR GFR 0.57 MG/DL (0.55-1.02); GLOMERULAR FILTRATION RATE > 60.0 (>51); GLUCOSE, FASTING 106 MG/DL (70-105); PHOSPHORUS LEVEL 2.9 MG/DL (2.5-4.9); POTASSIUM SERUM 3.7 MEQ/L (3.5-5.1); SODIUM LEVEL 145 MEQ/L (136-145); TOTAL PROTEIN 6.2 GM/DL (6.4-8.2); TRIGLYCERIDES LEVEL 364 MG/DL (<150)
[2016-06-29] MEDS: **hydrALAZINE** 50 MG TAB PO SCH ×2 (06:00)
[2016-06-29] MEDS: SLF 3 ML SYR IV SCH ×3 (06:00→21:10)
[2016-06-29] MEDS: ACETAMINOPHEN TAB 650MG DOSE (2X325MG) PO PRN (06:19)
[2016-06-29] MEDS: PANTOPRAZOLE 40MG INJ (PROTONIX) (C9113) IV SCH (08:33)
[2016-06-29] MEDS: MOM 30ML SUSPENSION UDC PO SCH (08:33)
[2016-06-29] MEDS: HEPARIN SOD (PORCINE) 5000 UNITS/ML VIAL SC SCH ×2 (08:33→21:09)
[2016-06-29] MEDS: DOCUSATE SODIUM 100 MG CAP PO SCH ×2 (08:33→21:10)
[2016-06-29] MEDS: POTASSIUM CHLORIDE 10 MEQ SR TABLET PO SCH ×2 (08:34→21:10)
[2016-06-29] MEDS: cloNIDine 0.1 MG TAB PO SCH ×2 (08:34→21:10)
[2016-06-29] MEDS: LABETALOL 100 MG TAB PO SCH ×2 (08:35→21:09)
[2016-06-29] MEDS: amLODIPine 10 MG TAB PO SCH (08:35)
--- NOTE | 2016-06-29 08:42 | REP ---
TWO VIEWS OF THE CHEST: This study is compared to that of 06/28/2016. The two chest tubes which extend into the right apex, one located anteriorly and the second posteriorly, are basically unchanged in position. There is fluid in the right oblique and minor fissure. The fluid density on the PA view is less apparent. There is some fluid collection at the right lung base. There is suggestion of a small rt. apical pneumothorax for a right pneumothorax. At the left lung base is band atelectasis. Remaining structures of the thorax are unremarkable. IMPRESSION: Postoperative right thoracotomy. Two drainage tubes with small rt. apical pneumothorax. There is some fluid at the right lung base and in the fissures. The fluid in the fissures show some decrease. Left basilar atelectasis. Unreviewed MTDD
[2016-06-29] MEDS: FENTANYL/BUPIVACAINE/NACL CADD 250 ML EPIDURAL SCH (12:12)
--- NOTE | 2016-06-29 12:39 | IPN ---
DATE: 06/29/2016 Mrs. Hawk has made spectacular progress in the last 24 hours. She now has equal strength in both arms and she was able to get up and walk around. She is oriented times three. Her vital signs show a maximum temperature (T max) of 99.1 with a heart rate that ranges between 73 and 63 in a sinus rhythm, respiratory rate of 18 to 20 without the use of accessory muscles, and her blood pressure is now ranging between 110/69 to 121/66. She is 96% saturated on 4 liters nasal cannula and respiratory rate is 18 to 20 without the use of accessory muscles. Her intake and output the past 24 hours has been recorded as 1410 in and 1160 out for a positivity of 250 mL. She has put out 85 mL out the chest tube. She weighs 62.5 kg today compared to 63.1 kg yesterday and 72 kg directly postoperatively. PHYSICAL EXAMINATION: LUNGS: Her lungs show equal breath sounds on either side. She still has some coarse crackles and rales, not all that disappear with coughing in the right lower hemithorax. Percussion note is full to the diaphragm. CARDIAC: Exam is without murmurs, clicks, gallops or rubs. I cannot feel her point of maximum impulse (PMI). S1, S2 are normal. ABDOMEN: Soft and nontender. Bowel sounds are positive. There is no hepatomegaly. No costovertebral angle tenderness. EXTREMITIES: Show no edema. No calf tenderness. No differential swelling of the upper extremities. SKIN: Warm, dry and perfused without cyanosis or mottling, including that of the nail beds and the knees. NECK: Supple. There is no jugular venous distention, no subcutaneous emphysema. Trachea is midline. MOUTH: Shows her mucous membranes to be pink and moist. Lips and commissures without lesions. There is no thrush. EYES: Show her pupils to be equal and reactive. Extraocular motions intact. Sclerae anicteric. NEUROLOGIC: Shows II-XII intact along with gross motor and gross sensation intact. Gait is not tested, but nursing tells me that she did walk around today. PSYCHIATRIC: Shows her to be awake and alert, oriented times three with appropriate mood and affect and converational. Her white count today is down to 13.7 with a hemoglobin and hematocrit of 12.5 and 37.4. Platelet count is 407 and differential shows 82% neutrophils, 10% lymphocytes and 3% monocytes. There are no immature forms. No toxic granulations. Her electrolytes are normal with a potassium of 3.7. BUN and creatinine of 23 and 0.57. Glucose is 106 with a calcium is 8.4 with a corresponding albumin of 2.0. AST and ALT are normalized, as has her total bilirubin. Her chest x-ray today shows again the lung fully expanded to the chest wall. The compression atelectasis and/or infiltrative process is improving. Costophrenic angles are sharp. Chest tubes are in good place. IMPRESSION: 1. Postoperative day #5 status post removal of pigtail catheter from superior pulmonary vein and left atrium. 2. Empyema. 3. Right lower lobe pneumonia. 4. Hypertension. 5. Reversible of ischemic neurologic deficit (RIND), improving and most likely resolved. 6. Hypernatremia, resolved. PLAN AND DISCUSSION: I am going to remove her chest tubes today. There is no air leak today. I can see no reason why she cannot go to the progressive care unit (PCU). She remains on Zosyn as an antibiotic.
[2016-06-30] VITALS (7 sets, daily range): BP systolic 108–155; BP diastolic 60–85; PULSE 75
[2016-06-30] MEDS: PIPERACILLIN/TAZOBACTAM SOD 3.375 GM in D5W MINI-BAG PLUS 50 ML IV SCH ×4 (00:56→17:46)
[2016-06-30] MEDS: ALBUTEROL SULFATE 2.5 MG/0.5 ML INH NEB SOLN NEB SCH ×7 (01:35→23:16)
[2016-06-30 06:28] LABS: BASO % 0.2 % (0.0-1.0); EOS # 0.2 K/mm3 (0.0-0.50); EOS % 1.9 % (0.0-3.0); LARGE UNSTAINED CELL # 0.1 K/mm3 (0.0-0.4); LYMPH # 1.6 K/mm3 (1.5-4.5); LYMPH % 11.5 % (24.0-44.0); MEAN CORPUSCULAR HEMOGLOBIN 30.3 pg (27.0-33.0); MEAN CORPUSCULAR HGB CONC 32.9 g/dl (32.0-36.5); MEAN CORPUSCULAR VOLUME 92.3 fl (80.0-96.0); MONO # 0.7 K/mm3 (0.0-0.8); MONO % 5.2 % (0.0-5.0); NEUTROPHILS % 80.1 % (36.0-66.0); PLATELET COUNT, AUTOMATED 445 k/mm3 (150-450); RED CELL DISTRIBUTION WIDTH 12.9 % (11.5-14.5); WHITE BLOOD COUNT 12.5 K/mm3 (4.0-10.0)
[2016-06-30] MEDS: SLF 3 ML SYR IV SCH ×3 (06:30→22:00)
[2016-06-30 06:46] LABS: BLOOD UREA NITROGEN 20 MG/DL (7-18); CREATININE FOR GFR 0.57 MG/DL (0.55-1.02); GLUCOSE, FASTING 98 MG/DL (70-105)
[2016-06-30 06:47] LABS: ALBUMIN 1.9 GM/DL (3.2-5.2); ALBUMIN/GLOBULIN RATIO 0.49 (1.00-1.93); ALKALINE PHOSPHATASE 196 U/L (45-117); ALT/SGPT 39 U/L (12-78); ANION GAP 10 MEQ/L (8-16); AST/SGOT 28 U/L (15-37); BILIRUBIN,TOTAL 0.6 MG/DL (0.2-1.0); CALCIUM LEVEL 8.3 MG/DL (8.5-10.1); CARBON DIOXIDE LEVEL 25 MEQ/L (21-32); CHLORIDE LEVEL 108 MEQ/L (98-107); CHOLESTEROL LEVEL 174 MG/DL (< 200); GLOMERULAR FILTRATION RATE > 60.0 (>51); POTASSIUM SERUM 4.1 MEQ/L (3.5-5.1); SODIUM LEVEL 143 MEQ/L (136-145); TOTAL PROTEIN 5.8 GM/DL (6.4-8.2); TRIGLYCERIDES LEVEL 318 MG/DL (<150)
[2016-06-30] MEDS: DOCUSATE SODIUM 100 MG CAP PO SCH ×2 (07:54→21:00)
[2016-06-30] MEDS: HEPARIN SOD (PORCINE) 5000 UNITS/ML VIAL SC SCH ×2 (07:54→21:16)
[2016-06-30] MEDS: ACETAMINOPHEN TAB 650MG DOSE (2X325MG) PO PRN (07:54)
[2016-06-30] MEDS: amLODIPine 10 MG TAB PO SCH (07:55)
[2016-06-30] MEDS: cloNIDine 0.1 MG TAB PO SCH ×2 (07:55→21:17)
[2016-06-30] MEDS: POTASSIUM CHLORIDE 10 MEQ SR TABLET PO SCH ×2 (07:55→21:17)
[2016-06-30] MEDS: MOM 30ML SUSPENSION UDC PO SCH ×2 (07:56→09:00)
[2016-06-30] MEDS: LABETALOL 100 MG TAB PO SCH ×2 (07:56→21:17)
--- NOTE | 2016-06-30 08:01 | REP ---
Clinical: Chest pain. Comparison: 06/29/2016. Findings: Increasing right-sided opacities compared to prior examination. Left lower lobe atelectasis stable. No obvious pneumothorax. Cardiac silhouette is within normal limits. Skeletal structures intact. Impression: Increasing right-sided opacities suggesting new infiltrates. Underlying right lower lobe and left lower lobe pleuroparenchymal changes similar to prior examination. Signed by Ata Schumacher MD 06/30/2016 07:52 A
--- NOTE | 2016-06-30 08:50 | REP ---
Clinical: Status post thoracotomy. Technique: PA and lateral. Comparison: 06/29/2016. Findings: Previously noted right chest tubes have been removed. There is a minuscule residual right apical pneumothorax. Right-sided pleuroparenchymal changes including pleural effusion may be slightly increased from prior examination. Left basilar atelectasis is unchanged. Impression: Right-sided pleuroparenchymal changes may be slightly increased when compared to prior examination. Minuscule right apical pneumothorax. Signed by Ata Schumacehr MD 06/30/2016 08:42 A
--- NOTE | 2016-06-30 09:35 | IPN ---
DATE: 06/30/2016 This is now the sixth postoperative day for Mrs. Hawk status post removal of pigtail catheter from superior pulmonary vein and left atrium. She is now out in the progressive care unit (PCU) and doing quite well. She has fully neurologically recovered. She is ambulating and walking around and she has full strength in all extremities. She has appropriate mood and affect and is oriented times three. Her vital signs show a T-max of 99.0 with a heart rate that ranges between 68-77 in a sinus rhythm, respiratory rate of 18-20 without the use of accessory muscles who is 90-95% saturated on 2-3 liters nasal cannula. Blood pressure is ranging between 126/72 to 108/65. Her intake and output over the last 24 hours has been recorded at 1768 in and 1285 out for a positivity of 480 mL. Her chest tubes were removed yesterday after putting out 35 mL. Weight today is 66.3 kg compared to 62.5 kg yesterday. PHYSICAL EXAMINATION: Her lungs show equal breath sounds on either side with almost normal vesicular sounds. There are some inspiratory rales and crackles in the right lower hemithorax. Percussion note is full to the diaphragm. Cardiac exam is without murmurs, clicks, gallops or rubs. I cannot feel her PMI. S1 and S2 are normal. Abdomen is soft, nontender, bowel sounds are positive. There is no hepatomegaly. No CVA tenderness. Extremities show no pretibial edema. No calf tenderness. No differential swelling of the upper extremities. Skin is warm, dry and perfused without cyanosis or mottling including that of the nail beds and knees. Neck is supple. There is no jugular venous distention. No subcutaneous emphysema. Trachea is midline. Mouth shows her mucous membranes to be pink and moist. Lips and commissures are without lesions. No thrush. Eyes show her pupils to be equal and reactive. Extraocular motor intact. Sclera anicteric. Neuro shows II through XII intact with gross motor and gross sensation intact. Gait is not tested. Psychiatric shows her to be awake and alert, oriented times three with appropriate mood and affect and conversational. Her white count today is 12.5 with hemoglobin and hematocrit of 11.9 and 36.3 and a platelet count of 445. Differential shows 80% neutrophils, 11% lymphocytes, 5% monocytes. There are no immature forms. No toxic granulations. Her electrolytes are essentially normal with BUN and creatinine of 20 and 0.57. Phosphorus is 3.0 with a calcium 8.3 with a corresponding albumin of 1.9. Her chest x-ray today shows the lung fully expanded to the chest wall. Last night, she had increase in pain and a portable chest x-ray showed the right hemithorax inferiorly opacified. We increased her lung expansion therapy. Today, her chest x-ray shows clearing of the right lower lobe. She still has an infiltrative pattern in the right lower lobe but that is improving. Costophrenic angles are sharp. Mediastinum is in the midline. There is no subcutaneous emphysema and there is no pneumothorax. She has some residual fluid in the major and minor fissures on the right. She remains on Zosyn as an antibiotic. IMPRESSION: 1. Postoperative day #6 status post removal of pigtail catheter from right superior pulmonary vein and left atrium. 2. Empyema. 3. Right lower lobe pneumonia. 4. Hypertension. 5. Reversible of ischemic neurologic defect, resolved. 6. Hypernatremia, resolved. PLAN AND DISCUSSION: We will remove her epidural today and discontinue her Blount. It is likely that she could go home in the next couple of days. I will place her on home antibiotics probably consisting of Levaquin. She has made a very gratifying recovery neurologically.
[2016-06-30] MEDS: PANTOPRAZOLE 40MG INJ (PROTONIX) (C9113) IV SCH (10:29)
[2016-06-30] MEDS: PANTOPRAZOLE 40MG TAB (PROTONIX) PO SCH (11:16)
[2016-06-30] MEDS: PERCOCET 5MG/325MG TAB PO PRN ×2 (11:26→17:46)
[2016-06-30] MEDS: NORCO, ANEXSIA 5/325MG TABLET (HYDROcodone/ACETAMINOPHEN) PO PRN ×2 (14:32→21:18)
[2016-07-01] MEDS: PIPERACILLIN/TAZOBACTAM SOD 3.375 GM in D5W MINI-BAG PLUS 50 ML IV SCH ×3 (00:01→12:19)
[2016-07-01 00:18] VITALS: BP 132/80
[2016-07-01] MEDS: PERCOCET 5MG/325MG TAB PO PRN ×4 (00:33→16:16)
[2016-07-01 03:26] VITALS: BP 155/87
[2016-07-01] MEDS: ACETAMINOPHEN TAB 650MG DOSE (2X325MG) PO PRN (03:31)
[2016-07-01] MEDS: ALBUTEROL SULFATE 2.5 MG/0.5 ML INH NEB SOLN NEB SCH ×4 (03:32→15:41)
[2016-07-01] MEDS: SLF 3 ML SYR IV SCH ×2 (06:00→12:20)
[2016-07-01 06:14] LABS: ALBUMIN 2.1 GM/DL (3.2-5.2); ALBUMIN/GLOBULIN RATIO 0.51 (1.00-1.93); ALKALINE PHOSPHATASE 215 U/L (45-117); ALT/SGPT 45 U/L (12-78); ANION GAP 7 MEQ/L (8-16); AST/SGOT 26 U/L (15-37); BILIRUBIN,TOTAL 0.8 MG/DL (0.2-1.0); BLOOD UREA NITROGEN 15 MG/DL (7-18); CALCIUM LEVEL 8.4 MG/DL (8.5-10.1); CARBON DIOXIDE LEVEL 25 MEQ/L (21-32); CHLORIDE LEVEL 107 MEQ/L (98-107); CHOLESTEROL LEVEL 185 MG/DL (< 200); CREATININE FOR GFR 0.65 MG/DL (0.55-1.02); GLOMERULAR FILTRATION RATE > 60.0 (>51); GLUCOSE, FASTING 96 MG/DL (70-105); PHOSPHORUS LEVEL 3.3 MG/DL (2.5-4.9); POTASSIUM SERUM 4.4 MEQ/L (3.5-5.1); SODIUM LEVEL 139 MEQ/L (136-145); TOTAL PROTEIN 6.2 GM/DL (6.4-8.2); TRIGLYCERIDES LEVEL 270 MG/DL (<150)
--- NOTE | 2016-07-01 07:58 | REP ---
Clinical: Status post thoracotomy for follow up. Technique: PA and lateral. Comparison: 06/30/2016. Findings: Right-sided pleuroparenchymal changes including a small to moderate pleural effusion as well as linear fibroatelectasis in the left lower lobe are essentially unchanged. No significant pneumothorax appreciated. No new process. Cardiac silhouette is normal. Impression: Pleuroparenchymal changes remain relatively stable compared to prior examination. Signed by Ata Schumacher MD 07/01/2016 07:50 A
[2016-07-01 08:00] VITALS: BP 132/82
[2016-07-01 08:36] VITALS: BP 154/78
[2016-07-01] MEDS: cloNIDine 0.1 MG TAB PO SCH (08:36)
[2016-07-01] MEDS: HEPARIN SOD (PORCINE) 5000 UNITS/ML VIAL SC SCH (08:37)
[2016-07-01] MEDS: LABETALOL 100 MG TAB PO SCH (08:37)
[2016-07-01] MEDS: POTASSIUM CHLORIDE 10 MEQ SR TABLET PO SCH (08:37)
[2016-07-01] MEDS: MOM 30ML SUSPENSION UDC PO SCH (08:38)
[2016-07-01] MEDS: DOCUSATE SODIUM 100 MG CAP PO SCH (08:38)
[2016-07-01] MEDS: PANTOPRAZOLE 40MG TAB (PROTONIX) PO SCH (08:38)
[2016-07-01] MEDS: amLODIPine 10 MG TAB PO SCH (08:38)
[2016-07-01] MEDS: NORCO, ANEXSIA 5/325MG TABLET (HYDROcodone/ACETAMINOPHEN) PO PRN (08:40)
[2016-07-01] MEDS ORDERED: LABE10TAB PO (10:01)
[2016-07-01] MEDS ORDERED: AMLO10TA2 PO (10:01)
[2016-07-01] MEDS ORDERED: LEVA750T PO (10:01)
[2016-07-01] MEDS ORDERED: CLONI1TA PO (10:01)
[2016-07-01] MEDS ORDERED: PERCOCET PO (10:02)
--- NOTE | 2016-07-01 10:52 | DSES ---
DATE OF ADMISSION: 06/20/2016 DATE OF DISCHARGE: DISCHARGE DIAGNOSES: 1. Right lower lobe pneumonia. 2. Empyema. 3. Postoperative day #7 status post removal of pigtail catheter from right superior pulmonary vein and left atrium. 4. Hypertension. 5. Reversible ischemic neurological defect, resolved. 6. Hyponatremia, resolved. 7. Urinary tract infection (UTI) upon admission. 8. Hypokalemia, resolved. HOSPITAL COURSE: The patient is a 55-year-old white female who presented to the emergency room for abdominal and flank pain for the prior four days. She had intermittent abdominal pain in her epigastrium. She had denied fever, chills or sweats. She was admitted to the hospital for what was thought to be a urinary tract infection with a urinalysis that showed positive leukocyte esterase with urine bacteria. Eventually; however, there was no growth from the urine culture. She then developed a right lower lobe infiltrate with a loculated pleural effusion. It was thought that this probably represented the source of her infection. Her antibiotics were changed to Zosyn. She was then sent to x-ray to place a pigtail catheter for the pleural effusion. She had two loculations. The inferior loculation was drained without difficulty; however, the superior loculation ended up with the pigtail catheter in the right pulmonary vein and left atrium. Inadvertently, blood was withdrawn of about 1 liter. She was paradoxically hypertensive and had profound weakness on the left side and it was thought to be initially a neurologic event resulting in malignant hypertension. However, a CT of her chest showed the catheter to be in the superior pulmonary vein and in the left atrium. She was immediately taken to the operating room where she underwent removal of the catheter via the left atrium and pulmonary vein. At that time, she was also found to have pleural fluid and a peel consistent with an empyema. She also underwent decortication at that time. Her neurological status greatly improved over the next three days such that she returned to baseline and was able to move all extremities and there looked to be no cognitive defect. Her blood pressure was initially difficult to control but eventually was controlled by use of labetalol, clonidine, and amlodipine. She is being discharged today on labetalol 150 mg twice a day, clonidine 0.1 mg twice a day, and amlodipine 10 mg daily. She is also being discharged on levofloxacin 750 mg daily for 7 days and Percocet 5/325 mg every four hours as needed for pain. She will return to see me in one week in postoperative followup, at which time I will arrange for her to see a aircraft de icer installer in regard to further control of her hypertension. On discharge today, her chest x-ray still shows a right lower lobe infiltrative process. It is improving. She has been afebrile for the last 3 days. Her discharge white count is 12.5, coming down from 18.7. Her discharge hemoglobin and hematocrit are 11.9 and 36.3. She did receive 5 units of packed red cells in and around the time of the operation, 2 units of fresh frozen plasma and 1 unit of platelets for massive hemorrhage. Her BUN and creatinine on discharge are 15 and 0.65 with normal electrolytes. As noted above, I will see her back in one week in the office for postoperative followup.
== END 2016-07-01 16:20 | disposition home or self-care (01) | DRG 120 ==
LOC: M ED 16:51 → M ED INP 20:42 → M PED 06-21 00:38 → M PCU 06-23 17:26 → M ICU 06-24 17:31 → M PCU 06-29 18:25
PROVIDERS: ADMIT Internal Medicine; ATTEND Thoracic Surgery (Cardiothoracic Vascular Surgery)
PROC: 5A1945Z Respiratory Ventilation, 24-96 Consecutive Hours (ICD-10-PCS; 2016-06-24)
PROC: 0BDN0ZZ Extraction of Right Pleura, Open Approach (ICD-10-PCS; 2016-06-24)
PROC: 05PY0DZ Removal of Intraluminal Device from Upper Vein, Open Approach (ICD-10-PCS; 2016-06-24)
PROC: 30233N1 Transfusion of Nonautologous Red Blood Cells into Peripheral Vein, Percutaneous Approach (ICD-10-PCS; 2016-06-24)
PROC: 30233K1 Transfusion of Nonautologous Frozen Plasma into Peripheral Vein, Percutaneous Approach (ICD-10-PCS; 2016-06-24)
PROC: 30233R1 Transfusion of Nonautologous Platelets into Peripheral Vein, Percutaneous Approach (ICD-10-PCS; 2016-06-24)
PROC: 02Q Heart and Great Vessels, Repair (ICD-10-PCS; principal; 2016-06-24 17:45)
DX: J18.9 Pneumonia, unspecified organism (principal); J95.821 Acute postprocedural respiratory failure; S25.4 Injury of pulmonary blood vessels; J86.9 Pyothorax without fistula; E87.0 Hyperosmolality and hypernatremia; R56.9 Unspecified convulsions; J90 Pleural effusion, not elsewhere classified; K56.7 Ileus, unspecified; N39.0 Urinary tract infection, site not specified; R55 Syncope and collapse; G45.9 Transient cerebral ischemic attack, unspecified; J98.11 Atelectasis; I10 Essential (primary) hypertension; R04.89 Hemorrhage from other sites in respiratory passages; E87.6 Hypokalemia; R00.1 Bradycardia, unspecified; Y83.8 Other surgical procedures as the cause of abnormal reaction of the patient, or of later complication, without mention of misadventure at the time of the procedure; Y92.238 Other place in hospital as the place of occurrence of the external cause; I97.52 Accidental puncture and laceration of a circulatory system organ or structure during other procedure; I95.81 Postprocedural hypotension

== ENCOUNTER → 2016-07-14 | Outpatient (CLI) | payer OTHER ==
[~2016-07-14] MED LIST: AMLO10TA2 PO; CLONI1TA PO; LABE10TAB PO; LEVA750T PO; PERCOCET PO
--- NOTE | 2016-07-14 11:58 | REP ---
CHEST, TWO VIEWS: HISTORY: Respiratory failure. COMPARISON: 07/01/2016 There is loss of volume in the right hemithorax. Patchy density is present in the right lower lobe that is decreased compared to the previous study. The left lung is clear. A small right pleural effusion is present. The heart is normal in size. The pulmonary vasculature is normal in appearance. The bony structure is intact. IMPRESSION: 1. Right lower lobe atelectasis or infiltrate, decreased compared to the previous study. 2. Small right pleural effusion, unchanged compared to the previous study. Signed by Maury Garcia MD 07/14/2016 12:03 P
== END ==
LOC: M SMT 10:21
PROVIDERS: ATTEND Thoracic Surgery (Cardiothoracic Vascular Surgery)
DX: J96.01 Acute respiratory failure with hypoxia (principal)

== ENCOUNTER → 2016-08-05 | Outpatient (CLI) | payer OTHER ==
--- NOTE | 2016-08-05 12:15 | REP ---
Clinical: Pneumonia. Prior right hydropneumothorax. Technique: PA and lateral. Comparison: 07/14/2016. Findings: Mediastinum and cardiac silhouette are normal. Pleuroparenchymal changes to the right lung base are improved compared to prior, but consistent with known prior hydropneumothorax. No pneumothorax. Skeletal structures intact. Impression: 1. Improved pleuroparenchymal changes involving the right base. 2. Clinical correlation is recommended and if the patient remains symptomatic chest CT may be warranted to evaluate for subtle superimposed acute process. Signed by Ata Schumacher MD 08/05/2016 12:06 P
== END ==
LOC: M SMT 11:52
PROVIDERS: ATTEND Thoracic Surgery (Cardiothoracic Vascular Surgery)
DX: J86.9 Pyothorax without fistula (principal); J15.9 Unspecified bacterial pneumonia

== ENCOUNTER → 2016-11-04 | Outpatient (REF) | payer OTHER ==
[~2016-11-04] MED LIST changes: -LEVA750T PO; +LEVA750T7 PO
== END ==
LOC: M SFHCPLAZ 16:25
PROVIDERS: ATTEND Family Medicine
DX: Z82.49 Family history of ischemic heart disease and other diseases of the circulatory system (principal); I10 Essential (primary) hypertension; Z53.9 Procedure and treatment not carried out, unspecified reason

== ENCOUNTER → 2019-11-30 | Emergency (ER) | payer OTHER ==
[~2019-11-30] MED LIST changes: -AMLO10TA2 PO; +AMLO1TAB25 PO; +MORPHINE 4 MG/ML 1ML VIAL/SYRINGE (J2270) ONE
== END | disposition home or self-care (01) ==
LOC: M ED 04:33
DX: N20.1 Calculus of ureter (principal); I10 Essential (primary) hypertension; F17.210 Nicotine dependence, cigarettes, uncomplicated
CPT/HCPCS: 74176; 99283; J2270

== ENCOUNTER → 2020-08-31 | Outpatient (REF) | payer OTHER ==
[~2020-08-31] MED LIST changes: +LABE100T4 PO; -LABE10TAB PO; -MORPHINE 4 MG/ML 1ML VIAL/SYRINGE (J2270) ONE
== END ==
LOC: M SFHCPLAZ 11:09
PROVIDERS: ATTEND Nurse Practitioner Family
DX: I10 Essential (primary) hypertension (principal); Z13.228 Encounter for screening for other metabolic disorders; Z13.220 Encounter for screening for lipoid disorders; E55.9 Vitamin D deficiency, unspecified; Z53.9 Procedure and treatment not carried out, unspecified reason

== ENCOUNTER 2021-03-17 19:15 | Emergency (ER) | payer OTHER ==
[~2021-03-17] VITALS: Ht 154.9 cm; Wt 60.0 kg
--- OUTSIDE RECORDS SUMMARY | 2021-03-17 19:25 | CCD ---
Author Author [facility] Organization [facility] Address Unknown Phone Unavailable Care Team Providers Care Dado Operator Name Role Phone Priyanka Jones Unavailable PROBLEMS Type Condition ICD9-CM Code QHS17-JC Code Onset Dates Condition S tatus W/U Status Risk SNOMED Code Notes Problem Nicotine use disorder F17.200 Active confirmed 30573844 Problem Vitamin D deficiency E55.9 Active confirmed 57049972 Problem Essential hypertension I10 Active confirmed [id number] ALLERGIES No Known Allergies ENCOUNTERS from 1960 to 2021-03-02 Encounter Location Date Provider Diagnosis [address] [phone] [place] [address] Feb, Priyanka Jones IMMUNIZATIONS Vaccine Route Administration Date Status Influenza 18 yrs & older Flublok IM Intramuscular Feb 14, 2019 Administered Pneumococcal Adult 0.5mL Pneumovax 23 IM Intramuscular November 04, 2016 Administered SOCIAL HISTORY Tobacco Use: Social History Observation Description Date Details (start date - stop date) Former Smoker Sex Assigned At : Social History Observation Description Sex Assigned At Unknown Education: Question Answer Notes Level of Education: GED Language: Question Answer Notes Languages spoken: Tajik Catholic: Question Answer Notes Catholic No jain beliefs that would impact health care. Sexual Hx: Question Answer Notes Had sex in the last 12 months (vaginal, oral, or anal)? No LMP: 10/06/2006 Have you ever had an STD? No Alcohol Screening: Question Answer Notes Did you have a drink containing alcohol in the past year? No Points 0 Interpretation Negative Tobacco Use: Question Answer Notes Are you a: former smoker How long has it been since you last smoked? 3-6 months REASON FOR REFERRAL No Information VITAL SIGNS No information MEDICATIONS Medication SIG (Take, Route, Frequency, Duration) Notes Start Da te End Date Status Losartan Potassium 50 MG 1 tablet Orally Once a day for 30 Days Active Enalapril Maleate 10 MG 1 tablet Orally Once a day for 90 day(s) Active Aspirin 81 MG 1 tablet Orally Once a day for 90 day(s) sometimes Unknown PROCEDURES No Information RESULTS No Results REASON FOR VISIT no show MEDICAL (GENERAL) HISTORY Type Description Date Medical History HTN Medical History Strong family hx of breast CA; no geneti c testing Medical History Nicotine use disorder Surgical History Chest tube for pneumonia 06/2016 Hospitalization History Pneumonia; complicated by chest tube ; ICU 06/2016 Goals Section No Information Health Concerns No Information MEDICAL EQUIPMENT No Information MENTAL STATUS No Information FUNCTIONAL STATUS No Information ASSESSMENTS No Information PLAN OF TREATMENT No Information Insurance Providers Payer Name Payer Address Payer Phone Insured Name Patient Relati onship to Insured Coverage Start Date Coverage End Date [facility] COMM[facility]AN [facility] [address] [facility] [phone] ROBBIN LEE self
--- OUTSIDE RECORDS SUMMARY | 2021-03-17 19:25 | CCD ---
Author Author [facility] Organization [facility] Address Unknown Phone Unavailable Support Name Relationship Address Phone UNEMPLOYED Next Of Kin Unknown TIMOTHY LEE Next [facility] [address] U Next Of Kin Unknown Unavailable NHI LEE Next Of Kin [facility] [place] [address] UE Next Of Kin Unknown Unavailable ELAINA LEE Next Of Kin [facility] [place] [place] [address] timothy lee E[place] [facility] [place] [address] Unavailable Re-disclosure Warning The records that you are about to access may contain information from federally-assisted alcohol or drug abuse programs. If such information is present, then the following federally mandated warning applies: This information has been disclosed to you from records protected by federal confidentiality rules (42 CFR part 2). The federal rules prohibit you from making any further disclosure of this information unless further disclosure is expressly permitted by the written consent of the person to whom it pertains or as otherwise permitted by 42 CFR part 2. A general authorization for the release of medical or other information is NOT sufficient for this purpose. The Federal rules restrict any use of the information to criminally investigate or prosecute any alcohol or drug abuse patient.The records that you are about to access may contain highly sensitive health information, the redisclosure of which is protected by Article 27-F of the [place] State Public Health law. If you continue you may have access to information: Regarding HIV / AIDS; Provided by facilities licensed or operated by the [facility] Office of Mental Health; or Provided by the [facility] Office for People With Developmental Disabilities. If such information is present, then the following [facility] mandated warning applies: This information has been disclosed to you from confidential records which are protected by state law. State law prohibits you from making any further disclosure of this information without the specific written consent of the person to whom it pertains, or as otherwise permitted by law. Any unauthorized further disclosure in violation of state law may result in a fine or penitentiary sentence or both. A general authorization for the release of medical or other information is NOT sufficient authorization for further disc losure. Encounters Encounter Providers Location Date Indications Data Source(s ) Unknown [address] [facility] [place] [id number] 03/01/2021 12:00:00 AM EDT eCW1 ([facility]) Outpatient [address] [facility] [id number] 08/31/2020 12:00:00 AM EDT eCW1 ([facility]) Unknown [address] [facility] [place] [address] 08/21/2020 12:00:00 AM EDT eCW1 ([facility]) Unknown [address] [facility] [place] [address] 02/19/2020 12:00:00 AM EDT eCW1 ([facility]) Medications No Information Insurance Providers Payer name Policy type / Coverage type Policy ID Covered constitution party ID Covered constitution party's relationship to laureano Policy Laureano Plan Information [facility] [id number] S [id number] [facility] [id number] SP [id number] [facility]-Commercial [id number] [facility]-Medicaid [id number] [facility] [id number] [facility] [id number] ANSI-Medicaid [id number] ANSI-Commercial [id number] ANSI-Commercial [id number] ANSI-Medicaid [id number] [facility] [id number] S [id number] SELF PAY UNAVAILABLE S [place] [id number] SP [id number] MEDICAID [id number] SP [id number] [facility] COMMUNITY PLAN [facility] [id number] SP [id number] [facility] [id number] SP [id number] Problems, Conditions, and Diagnoses No Information Surgeries/Procedures No Information Results No Information Social History Code Duration Value Status Description Data Source(s ) Smoking 03/01/2021 12:00:00 AM EDT Former Smoker completed Former Smoker eCW1 ([facility]) Smoking 08/31/2020 12:00:00 AM EDT Former Smoker completed Former Smoker eCW1 ([facility]) Vital Signs ID Date Data Source UNK Name Value Range Interpretation Code Description Data Source(s) Body weight 152.12 [lb_av] 152.12 [lb_av] eCW1 ([facility]) Body height 61.5 [in_i] 61.5 [in_i] eCW1 ([facility]) Body mass index (BMI) [Ratio] 28.27 kg/m2 28.27 kg/m2 eCW1 ([facility]) Heart rate 93 /min 93 /min eCW1 ([facility]) Respiratory rate 18 /min 18 /min eCW1 ([facility]) Body temperature 98 [degF] 98 [degF] eCW1 ([facility]) Systolic blood pressure 122 mm[Hg] 122 mm[Hg] e CW1 ([facility]) Diastolic blood pressure 78 mm[Hg] 78 mm[Hg] eCW1 ([facility])
[2021-03-17] MEDS ORDERED: ACETAMINOPHEN 325 MG TAB PO ONE (22:30)
[2021-03-17 23:21] LABS: BASO % 0.2 % (0.0-1.0); HEMATOCRIT 44.8 % (36.0-47.0); HEMOGLOBIN 14.7 g/dl (12.0-15.5); LYMPH # 1.1 10^3/uL (1.5-5.0); LYMPH % 24.8 % (24.0-44.0); MEAN CORPUSCULAR HEMOGLOBIN 29.8 pg (27.0-33.0); MEAN CORPUSCULAR HGB CONC 32.8 g/dl (32.0-36.5); MEAN CORPUSCULAR VOLUME 90.9 fl (80.0-96.0); MONO # 0.5 10^3/uL (0.0-0.8); NEUTROPHILS % 64.8 % (36.0-66.0); PLATELET COUNT, AUTOMATED 159 10^3/uL (150-450); RED BLOOD COUNT 4.93 10^6/uL (4.00-5.40); WHITE BLOOD COUNT 4.6 10^3/uL (4.0-10.0)
--- OUTSIDE RECORDS SUMMARY | 2021-03-17 23:33 | CCD ---
Author Author [facility] Organization [facility] Address Unknown Phone Unavailable Support Name Relationship Address Phone UNEMPLOYED Next Of Kin Unknown TIMOTHY LEE Next Of Kin [facility] [address] U Next Of Kin Unknown Unavailable NHI LEE Next Of Kin [facility] [address] UE Next Of Kin Unknown Unavailable ELAINA LEE Next Of Kin [facility] [address] timothy lee ECON [facility] [place] [address] Unavailable Re-disclosure Warning The records that you [...] is protected by Article 27-F of the [place] State Public Health law. If you continue you may have access to information: Regarding HIV / AIDS; Provided by facilities licensed or operated by the [facility] Office of Mental Health; or Provided by the [facility] Office for People With Developmental Disabilities. If such information is present, then the following [facility] mandated warning applies: This information has been [...] law may result in a fine or assisted sentence or both. A general authorization for the release of medical or other information is NOT sufficient authorization for further disc losure. Encounters Encounter Providers Location Date Indications Data Source(s ) Unknown [address] [facility] [address] [address] 03/01/2021 12:00:00 AM EDT eCW1 ([facility]) Outpatient [address] [facility] [address] [address] 08/31/2020 12:00:00 AM EDT eCW1 ([facility]) Unknown [address] [facility] [address] [address] 08/21/2020 12:00:00 AM EDT eCW1 ([facility]) Unknown [address] [facility] [address] [address] 02/19/2020 12:00:00 AM EDT eCW1 ([facility]) Medications No Information Insurance Providers Payer name Policy type / Coverage type Policy ID Covered constitution party ID Covered constitution party's relationship to laureano Policy Laureano Plan Information [facility] [id number] S [id number] [facility] [id number] SP [id number] [facility]-Commercial [id number] [facility]-Medicaid [id number] [facility] [id number] [facility]-Commercial [id number] ANSI-Medicaid [id number] ANSI-Commercial [id number] ANSI-Commercial [id number] ANSI-Medicaid [id number] [facility] [id number] S [id number] SELF PAY UNAVAILABLE S [place] [id number] SP [id number] MEDICAID [id number] SP [id number] [facility] COMMUNITY PLAN [facility] [id number] SP [id number] [facility] [id number] SP [id number] Problems, Conditions, and Diagnoses No Information Surgeries/Procedures No Information Results No Information Social History Code Duration Value Status Description Data Source(s ) Smoking 03/01/2021 12:00:00 AM EDT Former Smoker completed Former Smoker eCW1 ([facility]) Smoking 08/31/2020 12:00:00 AM EDT Former Smoker completed Former Smoker eCW1 ([facility]) Vital Signs ID Date Data Source UNK Name Value Range Interpretation Code Description Data Source(s) Body weight 152.12 [lb_av] 152.12 [lb_av] eCW1 ([facility]) Body height 61.5 [in_i] 61.5 [in_i] eCW1 ([facility]) Body mass index (BMI) [Ratio] 28.27 kg/m2 28.27 kg/m2 eCW1 ([facility]) Heart rate 93 /min 93 /min eCW1 ([facility]) Respiratory rate 18 /min 18 /min eCW1 ([facility]) Body temperature 98 [degF] 98 [degF] eCW1 ([facility]) Systolic blood pressure 122 mm[Hg] 122 mm[Hg] e CW1 ([facility]) Diastolic blood pressure 78 mm[Hg] 78 mm[Hg] eCW1 ([facility])
[2021-03-17 23:47] LABS: ALBUMIN 3.8 GM/DL (3.2-5.2); ALT/SGPT 24 U/L (12-78); BILIRUBIN,DIRECT < 0.1 MG/DL (0.0-0.2); BILIRUBIN,TOTAL 0.2 MG/DL (0.2-1.0); CK-MB VALUE MASS < 1.0 NG/ML (<3.6); CPK CREATINE PHOSPHOKINASE 61 U/L (26-192); LIPASE 291 U/L (73-393); MB/CK RELATIVE INDEX 1.64 (< OR =4); TOTAL PROTEIN 8.5 GM/DL (6.4-8.2); TROPONIN I < 0.02 NG/ML (< 0.10)
--- NOTE | 2021-03-18 00:02 | REPVR ---
PROCEDURE INFORMATION: Exam: XR Chest Exam date and time: 03/17/2021 11:25 PM Age: 60 years old Clinical indication: Other: Nausea; Additional info: Abdominal pain TECHNIQUE: Imaging protocol: XR of the chest. Views: 2 views. COMPARISON: CR CHEST 2 VIEWS 08/05/2016 11:57 AM FINDINGS: Lungs: No consolidation. Pleural spaces: Right-sided pleural thickening versus small pleural effusion. Heart/Mediastinum: Unremarkable. No cardiomegaly. Vasculature: Elongation of the thoracic aorta. Diaphragm: Elevation of the right hemidiaphragm. Bones/joints: Unremarkable. IMPRESSION: 1. Right-sided pleural thickening versus small pleural effusion. 2. No airspace consolidation. Electronically signed by: Farhan Johansen On 03/18/2021 00:02:07 AM
[2021-03-18 00:15] LABS: RSV AMPLIFICATION NEGATIVE (NEGATIVE)
[2021-03-18] MEDS ORDERED: MACR100C43 PO (01:12)
[2021-03-18 01:15] VITALS: O2SAT 95
[2021-03-18 03:00] VITALS: BP 131/74
--- NOTE | 2021-03-18 09:44 | ED PDOC ---
Post-Departure Follow-Up radiology repo rtfaxed ot [facility] Keyona James MD Mar 18, 2021 09:44
== END 2021-03-18 03:10 | disposition home or self-care (01) ==
LOC: M ED 19:15
DX: U07.1 COVID-19 (principal); N39.0 Urinary tract infection, site not specified; I10 Essential (primary) hypertension; Z87.442 Personal history of urinary calculi; F17.200 Nicotine dependence, unspecified, uncomplicated; Z79.899 Other long term (current) drug therapy

== ENCOUNTER 2021-06-02 19:09 | Emergency (ER) | payer OTHER ==
[~2021-06-02] VITALS: Ht 154.9 cm; Wt 62.3 kg
[~2021-06-02 19:09] MED LIST changes: +MACR100C43 PO
[2021-06-02] MEDS ORDERED: METH-1164 PO (20:55)
[2021-06-02] MEDS ORDERED: methocarbamoL 500 MG TAB PO ONE (20:55)
[2021-06-02] MEDS ORDERED: KETO10TAB PO (20:55)
[2021-06-02 21:07] VITALS: BP 160/93
== END 2021-06-02 21:10 | disposition home or self-care (01) ==
LOC: M ED 19:09
DX: S29.002A Unspecified injury of muscle and tendon of back wall of thorax, initial encounter (principal); S39.012A Strain of muscle, fascia and tendon of lower back, initial encounter; X58.XXXA Exposure to other specified factors, initial encounter; Y92.009 Unspecified place in unspecified non-institutional (private) residence as the place of occurrence of the external cause; Y93.9 Activity, unspecified; Y99.9 Unspecified external cause status; I10 Essential (primary) hypertension; F17.200 Nicotine dependence, unspecified, uncomplicated; Z79.899 Other long term (current) drug therapy

== ENCOUNTER 2023-08-17 14:49 | Emergency (ER) | payer OTHER ==
[~2023-08-17] VITALS: Ht 152.4 cm; Wt 63.0 kg
[~2023-08-17 14:49] MED LIST changes: +KETO10TAB PO; -LABE100T4 PO; +LABE100T6 PO; +METH-1164 PO
[2023-08-17 14:50] VITALS: BP 132/89; TEMP 98.8; O2SAT 97
[2023-08-17] MEDS: IPRATROPIUM 0.5MG/ALBUTEROL 2.5MG INH SOL UD 3ML (DUONEB) NEB ONE (18:26)
[2023-08-17] MEDS ORDERED: PRED20TA PO (19:11)
[2023-08-17] MEDS ORDERED: DOXY-443 PO (19:11)
[2023-08-17] MEDS ORDERED: VENTAER INH (19:11)
== END 2023-08-17 19:29 | disposition home or self-care (01) ==
LOC: M ED 14:49
DX: J42 Unspecified chronic bronchitis (principal); I10 Essential (primary) hypertension; I25.2 Old myocardial infarction; J90 Pleural effusion, not elsewhere classified; F17.200 Nicotine dependence, unspecified, uncomplicated; Z79.52 Long term (current) use of systemic steroids; Z79.899 Other long term (current) drug therapy; Z79.2 Long term (current) use of antibiotics

== ENCOUNTER → 2023-10-20 | Outpatient (CLI) | payer OTHER ==
[~2023-10-20] MED LIST changes: +DOXY-323 PO; +PRED20TA PO; +VENTAER INH
[2023-10-20 13:52] LABS: BASO # 0.1 10^3/uL (0.0-0.2); BASO % 0.5 % (0.0-1.0); EOS # 0.3 10^3/uL (0.0-0.5); EOS % 3.5 % (0.0-3.0); LYMPH # 2.5 10^3/uL (1.5-5.0); LYMPH % 27.3 % (24.0-44.0); MEAN CORPUSCULAR HEMOGLOBIN 30.1 pg (27.0-33.0); MEAN CORPUSCULAR HGB CONC 32.6 g/dl (32.0-36.5); MEAN CORPUSCULAR VOLUME 92.5 fl (80.0-96.0); MONO # 0.7 10^3/uL (0.0-0.8); MONO % 7.7 % (2.0-8.0); NEUTROPHILS # 5.6 10^3/uL (1.5-8.5); NEUTROPHILS % 60.8 % (36.0-66.0); PLATELET COUNT, AUTOMATED 247 10^3/uL (150-450); RED BLOOD COUNT 4.65 10^6/uL (4.00-5.40); WHITE BLOOD COUNT 9.2 10^3/uL (4.0-10.0)
[2023-10-20 14:21] LABS: ALKALINE PHOSPHATASE 101 U/L (46-116); ALT/SGPT 15 U/L (7.0-40); AST/SGOT < 8 U/L (<34); BILIRUBIN,TOTAL 0.4 MG/DL (0.3-1.2); BLOOD UREA NITROGEN 15 MG/DL (9-23); CALCIUM LEVEL 9.7 MG/DL (8.3-10.6); CARBON DIOXIDE LEVEL 28 MMOL/L (20-31); CHLORIDE LEVEL 110 MMOL/L (98-107); CHOLESTEROL LEVEL 245 MG/DL (<200); CHOLESTEROL RISK RATIO 4.34 (<5); CREATININE FOR GFR 0.77 MG/DL (0.55-1.30); GLOMERULAR FILTRATION RATE > 60.0 (>45); GLUCOSE, FASTING 90 MG/DL (74-106); HDL CHOLESTEROL 56.4 MG/DL (>40); LDL CHOLESTEROL 146.2 MG/DL (<100); NON-HDL-C 188.6 MG/DL; POTASSIUM SERUM 4.5 MMOL/L (3.5-5.1); SODIUM LEVEL 143 MMOL/L (136-145); TRIGLYCERIDES LEVEL 212 MG/DL (<150)
[2023-10-20 14:23] LABS: TOTAL 25(OH) VITAMIN D 15.2 NG/ML (20.0-100.0)
== END ==
LOC: M PLALAB 11:21
PROVIDERS: ATTEND Nurse Practitioner Family
DX: I10 Essential (primary) hypertension (principal); E55.9 Vitamin D deficiency, unspecified; E78.2 Mixed hyperlipidemia

== ENCOUNTER → 2025-02-24 | Outpatient (CLI) | payer OTHER ==
[~2025-02-24] MED LIST changes: -DOXY-323 PO; +DOXY-441 PO
[2025-02-24 17:14] LABS: BASO # 0.1 10^3/uL (0.0-0.2); BASO % 0.8 % (0.0-1.0); EOS # 0.3 10^3/uL (0.0-0.5); EOS % 3.7 % (0.0-3.0); LYMPH # 2.4 10^3/uL (1.5-5.0); LYMPH % 27.9 % (24.0-44.0); MONO # 0.7 10^3/uL (0.0-0.8); MONO % 8.1 % (2.0-8.0); NEUTROPHILS # 5.2 10^3/uL (1.5-8.5); NEUTROPHILS % 59.2 % (36.0-66.0); PLATELET COUNT, AUTOMATED 276 10^3/uL (150-450)
[2025-02-24 17:25] LABS: ESTIMATED AVERAGE GLUCOSE 111.0 MG/DL (60-110)
[2025-02-24 17:40] LABS: ALT/SGPT 17 U/L (7.0-40); AST/SGOT 14 U/L (<34); CALCIUM LEVEL 9.7 MG/DL (8.3-10.6); CARBON DIOXIDE LEVEL 27 MMOL/L (20-31); CHLORIDE LEVEL 108 MMOL/L (98-107); CHOLESTEROL LEVEL 260 MG/DL (<200); CHOLESTEROL RISK RATIO 4.07 (<5); CREATININE FOR GFR 0.69 MG/DL (0.55-1.30); GLOMERULAR FILTRATION RATE > 90.0 (>45); LDL CHOLESTEROL 161.2 MG/DL (<100); NON-HDL-C 196.2 MG/DL; POTASSIUM SERUM 4.4 MMOL/L (3.5-5.1); SODIUM LEVEL 144 MMOL/L (136-145); TRIGLYCERIDES LEVEL 175 MG/DL (<150)
[2025-02-24 17:41] LABS: PTH INTACT 49.8 PG/ML (18.5-88.0)
[2025-02-24 17:43] LABS: TOTAL 25(OH) VITAMIN D 22.7 NG/ML (20.0-100.0)
== END ==
LOC: M PLAIMG 15:40
PROVIDERS: ATTEND Nurse Practitioner Family
DX: R06.02 Shortness of breath (principal); R73.01 Impaired fasting glucose; E78.2 Mixed hyperlipidemia; E55.9 Vitamin D deficiency, unspecified; R53.83 Other fatigue